=== PATIENT | male | born 1965 | race Caucasian/White ===

== ENCOUNTER → 2018-01-22 | Outpatient (REF) | payer MEDICARE, MEDICAID ==
[2018-01-22 20:57] LABS: BASO % 0.5 % (0.0-1.0); EOS # 0.1 10^3/uL (0.0-0.50); EOS % 1.1 % (0.0-3.0); HEMATOCRIT 42.5 % (42.0-52.0); HEMOGLOBIN 14.7 g/dl (13.5-17.5); IMMATURE GRANULOCYTE % 0.2 % (0-3.0); LYMPH # 1.8 10^3/uL (1.5-4.5); LYMPH % 32.3 % (24.0-44.0); MEAN CORPUSCULAR HEMOGLOBIN 32.5 pg (27.0-33.0); MEAN CORPUSCULAR HGB CONC 34.6 g/dl (32.0-36.5); MONO # 0.4 10^3/uL (0.0-0.8); MONO % 7.8 % (0.0-5.0); NEUTROPHILS # 3.3 10^3/uL (1.8-7.7); NEUTROPHILS % 58.1 % (36.0-66.0); PLATELET COUNT, AUTOMATED 273 10^3/uL (150-450); RED BLOOD COUNT 4.52 10^6/uL (4.30-6.10); RED CELL DISTRIBUTION WIDTH 13.2 % (11.5-14.5); WHITE BLOOD COUNT 5.6 10^3/uL (4.0-10.0)
[2018-01-22 21:01] LABS: ALBUMIN 3.7 GM/DL (3.2-5.2); ALBUMIN/GLOBULIN RATIO 0.82 (1.00-1.93); ALKALINE PHOSPHATASE 59 U/L (45-117); ALT/SGPT 14 U/L (12-78); ANION GAP 5 MEQ/L (8-16); AST/SGOT 18 U/L (7-37); BILIRUBIN,TOTAL 0.5 MG/DL (0.2-1.0); BLOOD UREA NITROGEN 12 MG/DL (7-18); CALCIUM LEVEL 8.6 MG/DL (8.5-10.1); CARBON DIOXIDE LEVEL 29 MEQ/L (21-32); CHLORIDE LEVEL 105 MEQ/L (98-107); CREATININE FOR GFR 1.22 MG/DL (0.70-1.30); GLOMERULAR FILTRATION RATE > 60.0 (>56); GLUCOSE, FASTING 110 MG/DL (70-100); POTASSIUM SERUM 4.2 MEQ/L (3.5-5.1); SODIUM LEVEL 139 MEQ/L (136-145); TOTAL PROTEIN 8.2 GM/DL (6.4-8.2); VALPROIC ACID (DEPAKOTE) 49.7 UG/ML (50.0-100.0)
== END ==
LOC: M LAB REF 18:58
DX: Z79.899 Other long term (current) drug therapy (principal)
CPT/HCPCS: 80164

== ENCOUNTER 2018-02-02 16:53 | Emergency (ER) | payer MEDICARE, MEDICAID ==
[2018-02-02] MEDS: traZODone 100 MG TAB PO (18:12)
== END 2018-02-02 18:50 | disposition home or self-care (01) ==
LOC: M ED 16:53
DX: Z76.0 Encounter for issue of repeat prescription (principal); J06.9 Acute upper respiratory infection, unspecified; Z79.899 Other long term (current) drug therapy; Z87.820 Personal history of traumatic brain injury
CPT/HCPCS: 99282

== ENCOUNTER 2018-11-20 15:47 | Emergency (ER) | payer MEDICARE, MEDICAID ==
[~2018-11-20] VITALS: Ht 188 cm; Wt 109.5 kg
[~2018-11-20 15:47] MED LIST: ADVICAP PO; BUSP10TA PO; DIVA500T94 PO; FLON1SPR; HALO1TAB19 PO; TRAZ-163 PO
[2018-11-20] MEDS ORDERED: DICL75TA (15:54)
[2018-11-20] MEDS ORDERED: LORA-243 (15:54)
[2018-11-20] MEDS ORDERED: PROAAER10 INH (17:26)
[2018-11-20] MEDS ORDERED: SPIR1CAP INH (17:26)
[2018-11-20] MEDS ORDERED: PSEU1TAB3 PO (17:26)
[2018-11-20 17:37] VITALS: BP 118/61
== END 2018-11-20 17:38 | disposition home or self-care (01) ==
LOC: M ED 15:47
DX: J32.9 Chronic sinusitis, unspecified (principal); L72.9 Follicular cyst of the skin and subcutaneous tissue, unspecified; F17.210 Nicotine dependence, cigarettes, uncomplicated

== ENCOUNTER → 2019-01-19 | Outpatient (CLI) | payer MEDICARE, MEDICAID ==
[~2019-01-19] MED LIST changes: +DICL75TA; +LORA-243; +PROAAER10 INH; +PSEU1TAB3 PO; +SPIR1CAP INH
--- NOTE | 2019-01-19 09:48 | REP ---
Chest two views HISTORY: Cough Comparison: None The lungs are clear. The heart is normal in size. The pulmonary vasculature is normal in appearance. The bony structure is intact. IMPRESSION: No acute disease. Electronically Signed by Rodrigo Nuñez MD 01/19/2019 09:40 A
== END ==
LOC: M RAD 09:09
PROVIDERS: ATTEND Family Medicine Addiction Medicine
DX: R05 Cough (principal)

== ENCOUNTER → 2019-03-28 | Outpatient (REF) | payer MEDICARE, MEDICAID ==
[2019-03-30 09:45] LABS: ALBUMIN 3.8 GM/DL (3.2-5.2); ALT/SGPT 24 U/L (12-78); BILIRUBIN,TOTAL 0.5 MG/DL (0.2-1.0); BLOOD UREA NITROGEN 11 MG/DL (7-18); CALCIUM LEVEL 8.5 MG/DL (8.5-10.1); CARBON DIOXIDE LEVEL 28 MEQ/L (21-32); CHLORIDE LEVEL 103 MEQ/L (98-107); CHOLESTEROL LEVEL 156 MG/DL (<200); CHOLESTEROL RISK RATIO 4.588 (<5); CREATININE FOR GFR 1.24 MG/DL (0.70-1.30); FREE T4 1.38 NG/DL (0.76-1.46); GLOMERULAR FILTRATION RATE > 60.0 (>56); GLUCOSE, FASTING 82 MG/DL (70-100); HDL CHOLESTEROL 34 MG/DL (>40); LDL CHOLESTEROL 104 MG/DL (<100); NON-HDL-C 122 MG/DL; POTASSIUM SERUM 4.2 MEQ/L (3.5-5.1); SODIUM LEVEL 136 MEQ/L (136-145); TOTAL PROTEIN 7.5 GM/DL (6.4-8.2); TRIGLYCERIDES LEVEL 90 MG/DL (<150)
[2019-03-30 10:35] LABS: HEMOGLOBIN A1c 4.9 %
[2019-03-31 10:35] LABS: TOTAL 25(OH) VITAMIN D 22.9 NG/ML (30.0-100.0)
[2019-04-02 00:06] LABS: Lyme Disease IgG/IgM Antibodie <0.91 ISR (0.00-0.90); Lyme Disease IgM Ab Quantitati <0.80 index (0.00-0.79)
== END ==
LOC: M LAB REF 09:04 → M LAB 03-30 09:04
PROVIDERS: ATTEND Family Medicine
DX: Z12.5 Encounter for screening for malignant neoplasm of prostate (principal); Z13.228 Encounter for screening for other metabolic disorders; Z79.51 Long term (current) use of inhaled steroids; Z79.899 Other long term (current) drug therapy
CPT/HCPCS: 80053; 80061; 82306; 83036; 84439; 84443; 86617; G0103

== ENCOUNTER 2019-04-01 00:09 | Emergency (ER) | payer MEDICARE, MEDICAID ==
[2019-04-01 00:10] VITALS: BP 114/66
== END 2019-04-01 05:55 | disposition left against medical advice (07) ==
LOC: M ED 00:09
DX: Z53.29 Procedure and treatment not carried out because of patient's decision for other reasons (principal)

== ENCOUNTER → 2019-04-01 | Outpatient (REF) | payer MEDICARE, MEDICAID ==
[2019-04-01 19:20] LABS: BASO % 0.6 % (0.0-1.0); EOS # 0.1 10^3/uL (0.0-0.50); EOS % 1.9 % (0.0-3.0); HEMATOCRIT 40.5 % (42.0-52.0); HEMOGLOBIN 13.8 g/dl (13.5-17.5); LYMPH # 2.1 10^3/uL (1.5-4.5); LYMPH % 43.5 % (24.0-44.0); MEAN CORPUSCULAR HEMOGLOBIN 32.2 pg (27.0-33.0); MEAN CORPUSCULAR HGB CONC 34.1 g/dl (32.0-36.5); MEAN CORPUSCULAR VOLUME 94.4 fl (80.0-96.0); MONO # 0.5 10^3/uL (0.0-0.8); MONO % 9.5 % (0.0-5.0); NEUTROPHILS # 2.1 10^3/uL (1.8-7.7); NEUTROPHILS % 44.3 % (36.0-66.0); PLATELET COUNT, AUTOMATED 211 10^3/uL (150-450); RED BLOOD COUNT 4.29 10^6/uL (4.30-6.10); WHITE BLOOD COUNT 4.8 10^3/uL (4.0-10.0)
== END ==
LOC: M LAB REF 17:04
PROVIDERS: ATTEND Family Medicine
DX: Z12.5 Encounter for screening for malignant neoplasm of prostate (principal); Z13.228 Encounter for screening for other metabolic disorders; Z79.51 Long term (current) use of inhaled steroids; Z79.899 Other long term (current) drug therapy

== ENCOUNTER → 2019-08-20 | Outpatient (REF) | payer MEDICARE, MEDICAID ==
[2019-08-20 17:36] LABS: BASO % 0.3 % (0.0-1.0); EOS % 0.4 % (0.0-3.0); HEMATOCRIT 41.9 % (42.0-52.0); HEMOGLOBIN 13.8 g/dl (13.5-17.5); LYMPH # 1.5 10^3/uL (1.5-5.0); MEAN CORPUSCULAR HGB CONC 32.9 g/dl (32.0-36.5); MEAN CORPUSCULAR VOLUME 100.2 fl (80.0-96.0); MONO # 0.5 10^3/uL (0.0-0.8); MONO % 7.9 % (0.0-5.0); NEUTROPHILS # 4.6 10^3/uL (1.5-8.5); NEUTROPHILS % 69.1 % (36.0-66.0); PLATELET COUNT, AUTOMATED 214 10^3/uL (150-450); RED BLOOD COUNT 4.18 10^6/uL (4.30-6.10); WHITE BLOOD COUNT 6.7 10^3/uL (4.0-10.0)
[2019-08-20 17:41] LABS: PERCENT SATURATION 21.1 % (19.7-50.0)
== END ==
LOC: M LAB REF 16:23
PROVIDERS: ATTEND Family Medicine
DX: D64.9 Anemia, unspecified (principal)

== ENCOUNTER 2019-10-24 09:25 | Emergency (ER) | payer MEDICARE, MEDICAID ==
[~2019-10-24] VITALS: Ht 190.5 cm; Wt 108.4 kg
[~2019-10-24 09:25] MED LIST changes: -TRAZ-163 PO; +TRAZ-257 PO
[2019-10-24] MEDS ORDERED: BEVE1AER (09:41)
[2019-10-24] MEDS ORDERED: HALO5TA (09:41)
[2019-10-24] MEDS ORDERED: TRAZ1TAB14 (09:41)
[2019-10-24] MEDS ORDERED: BUSP10TA (09:41)
[2019-10-24] MEDS ORDERED: HYDR-4571 (09:41)
--- NOTE | 2019-10-24 11:32 | REP ---
LUMBOSACRAL SPINE: Five views of the lumbosacral spine are performed. There is no compression fracture or malalignment. There is normal lumbar lordosis with no spondylolysis or spondylolisthesis. There is mild diffuse spurring with a more moderate degree of spurring of L5. There is mild disc space narrowing and subchondral sclerosis at all levels with a more moderate degree of disc space narrowing at L4-5. There is Sclerosis and spurring at the posterior facet joints, particularly L4-5, L5-S1. IMPRESSION: Diffuse degenerative changes without fracture or dislocation. Electronically Signed by Moris Aguilar MD 10/24/2019 12:57 P
--- NOTE | 2019-10-24 11:39 | REP ---
PELVIS AND LEFT HIP: AP view of the left pelvis and AP and frog-leg views of the left hip are performed. There is no acute fracture or dislocation. There are mild degenerative change at both hip joints with joint space narrowing, subchondral sclerosis and spurring. There is mild narrowing and sclerosis of the sacroiliac joints bilaterally. IMPRESSION: Mild degenerative changes without fracture or dislocation. Electronically Signed by Moris Aguilar MD 10/24/2019 12:57 P
[2019-10-24] MEDS ORDERED: NORC1TAB7 PO (12:05)
[2019-10-24] MEDS ORDERED: NAPR-837 PO (12:05)
[2019-10-24 12:09] VITALS: BP 128/60
== END 2019-10-24 12:14 | disposition home or self-care (01) ==
LOC: M ED 09:25
DX: Z76.0 Encounter for issue of repeat prescription (principal); M16.12 Unilateral primary osteoarthritis, left hip; M51.36 Other intervertebral disc degeneration, lumbar region; M25.78 Osteophyte, vertebrae; M48.061 Spinal stenosis, lumbar region without neurogenic claudication; G89.29 Other chronic pain; M54.9 Dorsalgia, unspecified; F17.200 Nicotine dependence, unspecified, uncomplicated; Z79.899 Other long term (current) drug therapy

== ENCOUNTER 2020-02-15 20:37 | Emergency (ER) | payer MEDICARE, MEDICAID ==
[~2020-02-15] VITALS: Ht 190.5 cm; Wt 98.6 kg
[~2020-02-15 20:37] MED LIST changes: +BEVE1AER; +BUSP10TA; +HALO5TA; +HYDR-4571; +NAPR-837 PO; +NORC1TAB7 PO; +TRAZ1TAB14
[2020-02-15] MEDS ORDERED: ACETAMINOPHEN 500 MG TAB PO ONE (21:30)
[2020-02-15 22:17] VITALS: BP 120/72
== END 2020-02-15 22:18 | disposition home or self-care (01) ==
LOC: M ED 20:37
DX: M25.552 Pain in left hip (principal); G89.29 Other chronic pain; J44.9 Chronic obstructive pulmonary disease, unspecified; F17.210 Nicotine dependence, cigarettes, uncomplicated; F32.9 Major depressive disorder, single episode, unspecified; Z87.820 Personal history of traumatic brain injury; Z79.899 Other long term (current) drug therapy

== ENCOUNTER → 2020-02-20 | Outpatient (REF) | payer MEDICARE, MEDICAID ==
[2020-02-20 16:38] LABS: BASO % 0.8 % (0.0-1.0); EOS % 1.1 % (0.0-3.0); HEMATOCRIT 40.6 % (42.0-52.0); HEMOGLOBIN 13.6 g/dl (13.5-17.5); LYMPH # 1.2 10^3/uL (1.5-5.0); LYMPH % 30.8 % (24.0-44.0); MEAN CORPUSCULAR HEMOGLOBIN 31.8 pg (27.0-33.0); MEAN CORPUSCULAR HGB CONC 33.5 g/dl (32.0-36.5); MEAN CORPUSCULAR VOLUME 94.9 fl (80.0-96.0); MONO # 0.3 10^3/uL (0.0-0.8); NEUTROPHILS # 2.2 10^3/uL (1.5-8.5); NEUTROPHILS % 59.3 % (36.0-66.0); PLATELET COUNT, AUTOMATED 195 10^3/uL (150-450); RED BLOOD COUNT 4.28 10^6/uL (4.30-6.10); WHITE BLOOD COUNT 3.8 10^3/uL (4.0-10.0)
[2020-02-20 17:21] LABS: HEMOGLOBIN A1c 5.1 %
[2020-02-20 17:39] LABS: ALBUMIN 3.5 GM/DL (3.2-5.2); BILIRUBIN,TOTAL 0.4 MG/DL (0.2-1.0); CALCIUM LEVEL 8.9 MG/DL (8.5-10.1); CREATININE FOR GFR 1.37 MG/DL (0.70-1.30); GLOMERULAR FILTRATION RATE 57.4 (>56); POTASSIUM SERUM 4.6 MEQ/L (3.5-5.1); THYROID STIMULATING HORMONE 0.8 uIU/ML (0.358-3.740); TOTAL PROTEIN 7.6 GM/DL (6.4-8.2)
[2020-02-20 17:40] LABS: TOTAL 25(OH) VITAMIN D 25.3 NG/ML (30.0-100.0)
== END ==
LOC: M LAB REF 16:19
PROVIDERS: ATTEND Family Medicine
DX: Z13.228 Encounter for screening for other metabolic disorders (principal)

== ENCOUNTER 2020-03-13 | Emergency (ER) | payer MEDICARE, MEDICAID ==
[2020-03-13] MEDS ORDERED: NAPR-837 PO (03:23)
[2020-03-13] MEDS ORDERED: KEFL500C17 PO (03:23)
[2020-03-13] MEDS ORDERED: KETOROLAC 30 MG/ML 1ML VIAL IV ONE (03:30)
[2020-03-13] MEDS ORDERED: CEPHALEXIN 500 MG CAP PO ONE (03:30)
[2020-03-13 03:45] VITALS: BP 148/91
== END 2020-03-13 03:50 | disposition home or self-care (01) ==
LOC: M ED
DX: L03.115 Cellulitis of right lower limb (principal); Z87.820 Personal history of traumatic brain injury; F17.200 Nicotine dependence, unspecified, uncomplicated; Z79.899 Other long term (current) drug therapy
CPT/HCPCS: 96374; 99284; J1885

== ENCOUNTER → 2020-11-09 | Outpatient (REF) | payer MEDICARE, MEDICAID ==
[~2020-11-09] MED LIST changes: +KEFL500C17 PO
[2020-11-09 17:03] LABS: BASO % 0.6 % (0.0-1.0); EOS % 0.6 % (0.0-3.0); HEMATOCRIT 40.5 % (42.0-52.0); HEMOGLOBIN 13.2 g/dl (13.5-17.5); LYMPH # 1.5 10^3/uL (1.5-5.0); LYMPH % 29.7 % (24.0-44.0); MEAN CORPUSCULAR HEMOGLOBIN 31.1 pg (27.0-33.0); MEAN CORPUSCULAR HGB CONC 32.6 g/dl (32.0-36.5); MEAN CORPUSCULAR VOLUME 95.5 fl (80.0-96.0); MONO # 0.5 10^3/uL (0.0-0.8); NEUTROPHILS # 2.8 10^3/uL (1.5-8.5); NEUTROPHILS % 57.7 % (36.0-66.0); PLATELET COUNT, AUTOMATED 251 10^3/uL (150-450); RED BLOOD COUNT 4.24 10^6/uL (4.30-6.10); WHITE BLOOD COUNT 4.9 10^3/uL (4.0-10.0)
[2020-11-09 17:13] LABS: ALBUMIN 3.5 GM/DL (3.2-5.2); ALT/SGPT 12 U/L (12-78); BILIRUBIN,TOTAL 0.4 MG/DL (0.2-1.0); BLOOD UREA NITROGEN 12 MG/DL (7-18); CALCIUM LEVEL 8.9 MG/DL (8.5-10.1); CARBON DIOXIDE LEVEL 33 MEQ/L (21-32); CHLORIDE LEVEL 96 MEQ/L (98-107); CHOLESTEROL LEVEL 155 MG/DL (<200); CHOLESTEROL RISK RATIO 3.039 (<5); CREATININE FOR GFR 1.09 MG/DL (0.70-1.30); GLOMERULAR FILTRATION RATE > 60.0 (>56); GLUCOSE, FASTING 84 MG/DL (70-100); HDL CHOLESTEROL 51 MG/DL (>40); LDL CHOLESTEROL 93 MG/DL (<100); NON-HDL-C 104 MG/DL; SODIUM LEVEL 132 MEQ/L (136-145); TOTAL PROTEIN 7.5 GM/DL (6.4-8.2); TRIGLYCERIDES LEVEL 56 MG/DL (<150)
== END ==
LOC: M LAB REF 16:20
PROVIDERS: ATTEND Family Medicine Addiction Medicine
DX: Z13.228 Encounter for screening for other metabolic disorders (principal); D64.9 Anemia, unspecified

== ENCOUNTER 2021-04-19 09:51 | Emergency (ER) | payer MEDICARE, MEDICAID ==
[~2021-04-19] VITALS: Ht 188 cm; Wt 97.2 kg
[2021-04-19 09:52] VITALS: BP 161/92
[2021-04-19] MEDS ORDERED: CELE1CAP9 PO (10:02)
[2021-04-19] MEDS ORDERED: ACETAMINOPHEN 500 MG TAB PO ONE (12:00)
--- NOTE | 2021-04-19 12:28 | REP ---
INDICATION: fell. COMPARISON: None. TECHNIQUE: Helical scanning is acquired. 5 mm axial images were reformatted. Coronal MPR images were generated. FINDINGS: Bone window settings demonstrate an intact bony calvarium. There is no evidence of skull fracture or incidental bony calvarial lesion. The visualized paranasal sinuses appear clear. No intraorbital abnormality is seen. On soft tissue window setting images; the lateral, third, and fourth ventricles are normal in size and position. Aguilar-white differentiation pattern is normal above and below the tentorium. There are is no evidence of intracranial hemorrhage. No mass, edema, infarction, or midline shift is seen. No extra-axial fluid collection is appreciated. There is minimal generalized volume loss. Mild vascular calcification is seen in the distal internal carotid arteries. IMPRESSION: No acute intracranial abnormality.. <Electronically signed by Jak Dexter > 04/19/21 [id number]
--- NOTE | 2021-04-19 12:29 | REP ---
INDICATION: fell. COMPARISON: None. TECHNIQUE: Helical scanning is acquired and 4 mm axial images re-formatted. Coronal and sagittal MPR images are provided. FINDINGS: Lumbar vertebral body heights are preserved. There is normal alignment on sagittal MPR images. Degenerative disc disease with vacuum phenomena and disc space narrowing is seen at each level from L2-3 to L5-S1. There is discogenic spurring posteriorly at L4-5 and L3-4 associated with diffuse disc bulging. Anterior spurring is seen at these levels as well. No fracture or collapse is seen. No upper sacral fracture is appreciated. No transverse process fracture is seen. No perispinal hematoma appreciated. IMPRESSION: Degenerative spondylosis changes. No traumatic abnormality seen. <Electronically signed by Jak Dexter > 04/19/21 [id number]
--- NOTE | 2021-04-19 12:40 | REP ---
INDICATION: fell. COMPARISON: 10/24/2019 TECHNIQUE: AP pelvis with 2 images left hip. FINDINGS: AP pelvis: The sacral ala and foramina intact SI joints unremarkable. There are lower lumbar degenerative disc and facet changes at L4-5 and L5-S1, stable. Pelvic ring intact iliac wings unremarkable there is no evidence of fracture of the bony pelvis. There are some degenerative changes of both hips with marginal osteophytes acetabular roof. Left hip: Mild sclerosis acetabular roof a tiny rim osteophyte acetabular roof and femoral no evidence for AVN or fracture in the femoral head, neck, intertrochanteric and subtrochanteric femur. The pubic rami, symphysis pubis, visible acetabulum the left SI joint without fracture or focal lesion. IMPRESSION: 1. Some degenerative changes lower lumbar spine and facets without fracture or destructive lesion. There are minor degenerative changes of both hips without AVN or fracture of the hips. No acute bony pelvic finding. <Electronically signed by Rasta Hendrickson > 04/19/21 0732
== END 2021-04-19 13:00 | disposition home or self-care (01) ==
LOC: M ED 09:51
DX: S09.90XA Unspecified injury of head, initial encounter (principal); M54.5 Low back pain; M25.552 Pain in left hip; W01.198A Fall on same level from slipping, tripping and stumbling with subsequent striking against other object, initial encounter; Y92.099 Unspecified place in other non-institutional residence as the place of occurrence of the external cause; Y93.9 Activity, unspecified; Y99.9 Unspecified external cause status; J45.909 Unspecified asthma, uncomplicated; J44.9 Chronic obstructive pulmonary disease, unspecified; F41.9 Anxiety disorder, unspecified; F32.9 Major depressive disorder, single episode, unspecified; F17.200 Nicotine dependence, unspecified, uncomplicated; F12.10 Cannabis abuse, uncomplicated; M43.06 Spondylolysis, lumbar region; Z79.899 Other long term (current) drug therapy

== ENCOUNTER 2021-07-22 16:15 | Emergency (ER) | payer MEDICARE, MEDICAID ==
[~2021-07-22] VITALS: Ht 190.5 cm; Wt 97.2 kg
[~2021-07-22 16:15] MED LIST changes: +CELE1CAP9 PO
--- OUTSIDE RECORDS SUMMARY | 2021-07-22 16:24 | CCD | Continuity of Care Document ---
Author Author Wolfgang CARBAJAL P.A.-C. Organization Unknown Address [address] [place] [address] Phone [phone] Care Team Providers Care Bead Maker Name Role Phone Anibal Hernandez AUTM Long Stacy M.D. AUTM [phone] Problems Description No Information Available Social History Type Date Description Comments Sex Unknown Tobacco Use Start: Unknown He smokes 1-2 packs a day. He has been alcohol free for 5 years. Allergies, Adverse Reactions, Alerts Description No Known Drug Allergies Medications Active Medications SIG Qnty Indications Ordering Provide r Date Tylenol Extra Strength 500mg Table ts 2 po bid prn 120tabs G43 Nicolette Bolivar M.D. 06/20/2021 Ra Lidocaine Pain Relieving Patches Maxi mum Strength 4% Patches 1 patch to the left hip 12 hours on and 12 hours off 30units G43. Nicolette Bolivar M.D. 06/20/2021 Aimovig 140mg/ml Solution Auto-Inj ect inject subcutaneously once monthly, new dose 1ml G43. Virgie Bolivar M.D. 12/22/2020 Medrol 4mg TBPK take d osepak as directed 1pack Nicolette Bolivar M.D. 10/01/[address] Take One Tablet By Mouth @8Am and Take One Tablet @8PM 60tabs R51 Nicolette Bolivar M.D. 12/05/2019 Buspirone HCL 10mg Tablets Long Stacy M.D. Celecoxib 200mg Capsules Long Stacy M.D. Haloperidol 5mg Tablets Hans Gardner M.D. Trazodone HCL 150mg Tablets Long Stacy M.D. Ventolin HFA 108(90Base) mcg/Act A erosol Long Stacy M.D. Immunizations Description No Information Available Vital Signs Date Vital Result Comment 06/20/2021 5:28am BP Systolic 118 mmHg BP Diastolic 80 mmHg Heart Rate 80 /min Respiratory Rate 16 /min 03/22/2021 5:46am BP Systolic 124 mmHg BP Diastolic 80 mmHg Heart Rate 80 /min Respiratory Rate 16 /min Results Description No Information Available Procedures Date Code Description Status 06/20/2021 65122 Office/Outpatient Established Mo d MDM 30-39 Min Completed 03/22/2021 24040 Office/Outpatient Established Mo d MDM 30-39 Min Completed 12/22/2020 44277 Phone Evaluation/Management Phys ician 11-20 Mins Completed Medical Devices Description No Information Available Encounters Type Date Location Provider Dx Diagnosis Office Visit 06/20/2021 2:30p Main office - [place] Robinson Yo.A.-C. S09.0xxD Injury of blood vessels of head, NEC, liu bs G43.719 Chronic migraine w/o aura, i ntractable, w/o stat migr G44.41 Drug-induced headache, not e lsewhere classified, intractable M25.552 Pain in left hip Office Visit 03/22/2021 2:30p Main office - [place] Liyah fisher P.A.-C. G43.719 Chronic migraine w/o aura, intractable, w/o stat migr G44.41 Drug-induced headache, not e lsewhere classified, intractable S09.0xxD Injury of blood vessels of h ead, NEC, subs Office Visit 12/22/2020 1:45p Main office - [place] Liyah fisher P.A.-C. S09.0xxD Injury of blood vessels of head, NEC, liu bs G43.719 Chronic migraine w/o aura, i ntractable, w/o stat migr G44.41 Drug-induced headache, not e lsewhere classified, intractable Assessments Date Code Description Provider 06/20/2021 S09.0xxD Injury of blood vess els of head, not elsewhere classified, subsequent encounter Carmine ReedAGorge-C. 06/20/2021 G43.719 Chronic migraine wit hout aura, intractable, without status migrainosus Robinson Reed.A.-C. 06/20/2021 G44.41 Drug-induced headache, not elsew here classified, intractable Robinson Reed.A.-C. 06/20/2021 M25.552 Pain in left hip Liyah Carbajal P.A.-C. 03/22/2021 G43.719 Chronic migraine wit hout aura, intractable, without status migrainosus Liyah Carbajal P.A.-C. 03/22/2021 G44.41 Drug-induced headache, not elsew here classified, intractable Robinson Reed.A.-C. 03/22/2021 S09.0xxD Injury of blood vess els of head, not elsewhere classified, subsequent encounter Robinson Reed.A.-C. 12/22/2020 S09.0xxD Injury of blood vess els of head, not elsewhere classified, subsequent encounter Robinson Reed.A.-C. 12/22/2020 G43.719 Chronic migraine wit hout aura, intractable, without status migrainosus Robinson Reed.A.-C. 12/22/2020 G44.41 Drug-induced headache, not elsew here classified, intractable Robinson Reed.A.-C. Plan of Treatment Future Appointment(s):* 09/20/2021 1:45 pm - Liyah Carbajal P.A.-C. at [facility], [place] 06/20/2021 - Esau ReedC.* S09.0xxD Injury of blood vessels of head, not elsewhere classified, subsequent encounter* Comments:* Not recurrent. * G43.719 Chronic migraine without aura, intractable, without status migrainosus * New Medication:* Tylenol Extra Strength 500 mg - 2 po bid prn * Ra Lidocaine Pain Relieving Patches Maximum Strength 4 % - 1 patch to the left hip 12 hours on and 12 hours off * Comments:* Continue Aimovig and Depakote with Tylenol as needed. * G44.41 Drug-induced headache, not elsewhere classified, intractable* Comments: * Improved. * M25.552 Pain in left hip* Comments:* Prescriptions for Tylenol and Lidocaine patches sent eRx. * Follow up:* 3 months Functional Status Description No Information Available Mental Status Description No Information Available Referrals Description No Information Available
--- OUTSIDE RECORDS SUMMARY | 2021-07-22 16:25 | CCD | Continuity of Care Document ---
Author Author Wolfgang CARBAJAL P.A.-C. Organization Unknown Address [address] [place] [address] Phone [phone] Care Team Providers Care Internal Affairs Investigator Name Role Phone Anibal Hernandez AUTM Long Stacy M.D. AUTM [phone] Problems Description No Information Available Social History Type Date Description Comments Sex Unknown Tobacco Use Start: Unknown He smokes 1-2 packs a day. He has been alcohol free for 5 years. Allergies, Adverse Reactions, Alerts Description No Known Drug Allergies Medications Active Medications SIG Qnty Indications Ordering Provide r Date Tylenol Extra Strength 500mg Table ts 2 po bid prn 120tabs G43. Nicolette Bolivar M.D. 06/20/2021 Ra Lidocaine Pain [...] M.D. 12/05/2019 Buspirone HCL 10mg Tablets Long tSacy M.D. Celecoxib 200mg Capsules Long Stacy M.D. Haloperidol 5mg Tablets Hans Gardner M.D. Trazodone HCL 150mg Tablets Long Stacy M.D. Ventolin HFA 108(90Base) mcg/Act A erosol Long Stacy M.D. Immunizations Description No Information Available Vital Signs Date Vital Result Comment 03/22/2021 5:46am BP Systolic 124 mmHg BP Diastolic 80 mmHg Heart Rate 80 /min Respiratory Rate 16 /min 05/27/2020 6:03am BP Systolic 110 mmHg BP Diastolic 80 mmHg Heart Rate 76 /min Respiratory Rate 16 /min Results Description No Information Available Procedures Date Code Description Status 03/22/2021 44818 Office/Outpatient Established Mo d MDM 30-39 Min Completed 12/22/2020 67040 Phone Evaluation/Management Phys ician 11-20 Mins Completed Medical Devices Description No Information Available Encounters Type Date Location Provider Dx Diagnosis Office Visit 03/22/2021 2:30p Main office - [facility] Liyah fisher P.A.-C. G43.719 Chronic migraine w/o aura, intractable, w/o stat migr G44.41 Drug-induced headache, not e lsewhere classified, intractable S09.0xxD Injury of blood vessels of h ead, NEC, subs Office Visit 12/22/2020 1:45p Main office - [facility] Liyah fisher P.A.-C. S09.0xxD Injury of blood vessels of head, NEC, liu bs G43.719 Chronic migraine w/o aura, i ntractable, w/o stat migr G44.41 Drug-induced headache, not e lsewhere classified, intractable Assessments Date Code Description Provider 06/20/2021 S09.0xxD Injury of blood vess els of head, not elsewhere classified, subsequent encounter Liyah Carbajal P.A.-C. 06/20/2021 G43.719 Chronic migraine wit hout aura, intractable, without status migrainosus Liyah Carbajal P.A.-C. 06/20/2021 G44.41 Drug-induced headache, not elsew here classified, intractable Liyah Carbajal P.A.-C. 06/20/2021 M25.552 Pain in left hip Easu ReedC. 03/22/2021 G43.719 Chronic migraine wit hout aura, intractable, without status migrainosus Carmine ReedAGorge-C. 03/22/2021 G44.41 Drug-induced headache, not elsew here classified, intractable Esau ReedC. 03/22/2021 S09.0xxD Injury of blood vess els of head, not elsewhere classified, subsequent encounter Lita Reed-C. 12/22/2020 S09.0xxD Injury of blood vess els of head, not elsewhere classified, subsequent encounter Lita Reed-C. 12/22/2020 G43.719 Chronic migraine wit hout aura, intractable, without status migrainosus Lita Reed-CGorge 12/22/2020 G44.41 Drug-induced headache, not elsew here classified, intractable Lita Reed-Keerthi. Plan of Treatment 06/20/2021 - Liyah Carbajal P.A.-C.* S09.0xxD Injury of blood vessels of head, not elsewhere classified, subsequent encounter * G43.719 Chronic migraine without aura, intractable, without status migrainosus * New Medication:* Tylenol Extra Strength 500 mg - 2 po bid prn * Ra Lidocaine Pain Relieving Patches Maximum Strength 4 % - 1 patch to the left hip 12 hours on and 12 hours off * G44.41 Drug-induced headache, not elsewhere classified, intractable * M25.552 Pain in left hip Functional Status Description No Information Available Mental Status Description No Information Available Referrals Description No Information Available
--- OUTSIDE RECORDS SUMMARY | 2021-07-22 16:25 | CCD ---
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 Name Role Phone StacyLong Unavailable Unavailable Allergies Code Code System Name Reaction Severity Status Onset NKDA Medications Name Status Start Date Stop Date Aimovig Autoinjector 140 mg/mL subcutane ous auto-injector INJECT ONE SYRINGE SUBCUTANEOUSLY Once A Month Active Not available Aimovig Autoinjector 70 mg/mL subcutaneous auto-injector Active Not available albuterol sulfate HFA 90 mcg/actuation a erosol inhaler INHALE TWO PUFFS BY MOUTH EVERY 4 HOURS NEEDED Active Not available Bevespi Aerosphere 9 mcg-4.8 mcg HFA aerosol inhaler Active Not available buspirone 10 mg tablet TAKE ONE TABLET BY MOUTH @8AM and TAKE ONE TABLET BY MOUTH @8PM Active Not available cefdinir 300 mg capsule Completed 08/16/20 20 celecoxib 200 mg capsule TAKE ONE TABLET BY MOUTH @8AM Active Not avail able cephalexin 500 mg capsule Active Not av ailable cetirizine 10 mg tablet TAKE ONE TABLET BY MOUTH ONCE DAILY Active Not available cyclobenzaprine 10 mg tablet Active Not available diclofenac sodium 75 mg tablet,delayed r elease TAKE ONE TABLET BY MOUTH @12PM and TAKE ONE TABLET BY MOUTH @8PM Active Not available divalproex 500 mg tablet,delayed release TAKE ONE TABLET BY MOUTH @8AM and TAKE ONE TABLET BY MOUTH @8PM Active Not available gabapentin 300 mg capsule Active Not av ailable haloperidol 5 mg tablet TAKE ONE TABLET BY MOUTH @8AM Active Not avail able hydrocodone 5 mg-acetaminophen 325 mg tablet Active Not available ibuprofen 800 mg tablet Active Not avai lable ketoconazole 2 % topical cream Active N ot available ketorolac 0.5 % eye drops INSTILL ONE DROP IN THE RIGHT EYE FOUR TIMES DAILY BEGIN THREE DAYS PRIOR TO SURGERY Active Not available methylprednisolone 4 mg tablets in a dos e pack TAKE DIRECTED PER DOSEPACK Active Not avail able naproxen 500 mg tablet Active Not avail able polymyxin B sulfate 10,000 unit-trimetho prim 1 mg/mL eye drops INSTILL ONE DROP IN THE RIGHT EYE FOUR TIMES DAILY BEGIN THREE DAYS PRIOR TO SURGERY Active Not available prednisolone acetate 1 % eye drops,suspe nsion INSTILL ONE DROP IN THE RIGHT EYE FOUR TIMES DAILY TO BE STARTED AFTER SURGERY Active Not available prednisone 10 mg tablet Active Not avai lable trazodone 100 mg tablet 1 by mouth at bedtime every night. Active Not available trazodone 150 mg tablet TAKE ONE TABLET BY MOUTH @8PM Active Not avail able Problems Name Status Onset Date Source Mixed Anxiety and Depressive Disorder Active 10/19/2016 History Emotional State Finding Active 10/19/2016 History Functional Urinary Incontinence Active 01/18/2017 History Procedure by Method Active 01/18/2017 History Complete Tear, Iliolumbar Ligament Active 04/19/2017 History Dental Caries on Smooth Surface Penetrating into Pulp Active 12/13/2017 History Current Drug User Active 01/22/2018 History Psychophysiologic Insomnia Active 04/25/2018 Histo ry Finding of Head and Neck Region Active 07/19/2018 History Headache Disorder Active 08/28/2018 History Cough Active 01/10/2019 History Chronic Obstructive Lung Disease Active 03/28/2019 History Screening for Malignant Neoplasm of Prostate Active 01/2019 History Endocrine/metabolic Screening Active 03/28/2019 Hi story Anemia Active 04/29/2019 History Nicotine Dependence Active 04/29/2019 History Screening Procedure Active 04/29/2019 History Acute Bronchitis Unknown 07/21/2019 History Bursitis Active 08/29/2019 History Pain of Left Hip Joint Active 08/29/2019 History Low Back Pain Active 11/25/2019 History Spasm Active 11/25/2019 History Influenza Vaccine Needed Active 11/25/2019 History Cataract Active 02/01/2021 Procedures Notes: No known surgical history Results Lab Results Date Name Specimen Result Interpretation Description Value Range Status Address 02/08/2021 SARS CoV 2 RdRp Gene, QL Probe, Respiratory Spec imen Nasopharyngeal Normal Sars-cov-2 negative negative Final [facility]: [address] [facility] 11/09/2020 CBC W/ Auto Diff Blood venous Normal White Blood C ount 4.9 10 4.0-10.0 10 [facility]: [address] [facility] Blood venous Low Red Blood Count 4.24 10 4.30- 6.10 10 [facility]: [address] [place] [address] Blood venous Low Hemoglobin 13.2 g/dL 13.5-17. 5 g/dL [facility]: [address] [place] [address] Blood venous Low Hematocrit 40.5 % 42.0-52.0 % [facility]: [address] [place] [address] Blood venous Normal Mean Corpuscular Volume 95.5 fL 80.0-96.0 fL [facility]: [address] [place] [address] Blood venous Normal Mean Corpuscular Hemoglob in 31.1 pg 27.0-33.0 pg [facility]: [address] [place] [address] Blood venous Normal Mean Corpuscular HGB Conc 32.6 g/dL 32.0-36.5 g/dL [facility]: [address] [place] [address] Blood venous Normal Red Cell Distribution Wid th 12.8 % 11.5-14.5 % [facility]: [address] [place] [address] Blood venous Normal Platelet Count, Automated 251 10 150-450 10 [facility]: [address] [place] [address] Blood venous Normal Neutrophils % 57.7 % 36.0-66. 0 % [facility]: [address] [place] [address] Blood venous Normal Lymph % 29.7 % 24.0-44.0 % Fi [facility]: [address] [place] [address] [facility] % 11.0 % 2.0-8.0 % [facility]: [address] [place] [address] Blood venous Normal Eos % 0.6 % 0.0-3.0 % [facility]: [address] [place] [address] Blood venous Normal Baso % 0.6 % 0.0-1.0 % [facility]: [address] [place] [address] Blood venous Normal Immature Granulocyte % 0.4 % 0-3.0 % [facility]: [address] [place] [address] Blood venous Normal Nucleated Red Blood Cell % 0. 0 % 0-0 % [facility]: [address] [place] [address] Blood venous Normal Neutrophils # 2.8 10 1.5-8.5 10 [facility]: [address] [place] [address] Blood venous Normal Lymph # 1.5 10 1.5-5.0 10 [facility]: [address] [facility] Blood venous Normal [facility] # 0.5 10 0.0-0.8 10 [facility]: [address] [place] [address] Blood venous Normal Eos # 0.0 10 0.0-0.5 10 [facility]: [address] [place] [address] Blood venous Normal Baso # 0.0 10 0.0-0.2 10 [facility]: [address] [place] [address] 11/09/2020 CMP, Serum or Plasma Blood venous Normal Glu cose, Fasting 84 mg/dL 70-100 mg/dL [facility] nter: [address] [place] [address] Blood venous Normal Blood Urea Nitrogen 12 mg/dL 7-18 mg/dL [facility]: [address] [place] [address] Blood venous Normal Creatinine for GFR 1.09 mg/dL 0.70-1.30 mg/dL [facility]: [address] [place] [address] Blood venous Normal Glomerular Filtration Rate > 60.0 >56 [facility]: [address] [place] [address] Blood venous Low Sodium Level 132 mEq/L 136-14 5 mEq/L [facility]: [address] [place] [address] Blood venous Normal Potassium Serum 5.0 mEq/L 3.5 -5.1 mEq/L [facility]: [address] [place] [address] Blood venous Low Chloride Level 96 mEq/L 98-10 7 mEq/L [facility]: [address] [place] [address] Blood venous High Carbon Dioxide Level 33 mEq/L 21-32 mEq/L [facility]: [address] [place] [address] Blood venous Low Anion Gap 3 mEq/L 8-16 mEq/L [facility]: [address] [place] [address] Blood venous Normal Calcium Level 8.9 mg/dL 8.5-1 0.1 mg/dL [facility]: [address] [facility] Blood venous Normal AST/SGOT 13 U/L 7-37 U/L Dee l [facility] [place]: [address] [facility] Blood venous Normal ALT/SGPT 12 U/L 12-78 U/L [facility] al [facility] [place]: [address] [facility] Blood venous Normal Alkaline Phosphatase 50 U/L 4 5-117 U/L [facility]: [address] [facility] Blood venous Normal Bilirubin,total 0.4 mg/dL 0.2 -1.0 mg/dL [facility]: [address] [facility] Blood venous Normal Total Protein 7.5 gm/dL 6.4-8 .2 gm/dL [facility]: [address] [facility] Blood venous Normal Albumin 3.5 gm/dL 3.2-5.2 gm/ dL [facility]: [address] [facility] Blood venous Normal Albumin/globulin Ratio 0.9 [facility]: [address] [facility] 11/09/2020 Lipid Panel, Blood Normal Triglycerides Lev el 56 mg/dL <150 mg/dL [facility]: [address] [facility] Normal Cholesterol Level 155 mg/dL <200 mg/ dL [facility]: [address] [facility] Normal HDL Cholesterol 51 mg/dL >40 mg/dL F inal [facility] [place]: [address] [facility] Normal LDL Cholesterol 93 mg/dL <100 mg/dL [facility]: [address] [facility] Normal Non-hdl-c 104 mg/dL Final [facility]: [address] [facility] Normal Cholesterol Risk Ratio 3.039 <5 [facility]: [address] [facility] 11/09/2020 TSH, Serum or Plasma Blood venous Normal Thyroid Stimulating Hormone 1.040 uIU/mL 0.358-3.740 uIU/mL [facility]: [address] [facility] Past Encounters 05/11/2021 Psychophysiologic Insomnia Long Stacy MD: [address] [place] [phone], Ph. 02/08/2021 Chronic Obstructive Lung Disease; Exposure to SARS-CoV-2; Pain of Left Hip Joint Long Stacy MD: [address] [place] [phone], Ph. 11/09/2020 Endocrine/metabolic Screening; Anemia; Pain of Left Hip Joint Long Stacy MD: [address] [place] [phone], Ph. 08/16/2020 Pruritic Rash Mary Beth Matson PA-C: [address] [place] [phone], Ph. Social History Tobacco Smoking Status Heavy Tobacco Smoker (1.5 PPD) Vaccine List Vaccine Type influenza, injectable, quadrivalent, pre servative free 11/25/20190.5 mL 07/08/20200.5 mL Plan of Care Reminders Provider Appointments None recorded. Lab None recorded. Referral None recorded. Procedures None recorded. Surgeries None recorded. Imaging None recorded. Vitals 05/11/2021 03:00PM ESTABLISHED [id number] Height Weight BMI Blood Pressure 75 in 209 lbs 2 oz 26.1 kg/m2 115/70 mm[Hg] 02/08/2021 02:00PM ESTABLISHED [id number] Height Weight BMI Blood Pressure 75 in 219 lbs 27.4 kg/m2 113/62 mm[Hg] 11/09/2020 01:20PM ESTABLISHED [id number] Height Weight BMI Blood Pressure 75 in 232 lbs 16 oz 29.1 kg/m2 103/65 mm[Hg] 08/16/2020 02:00PM ESTABLISHED [id number] Height Weight BMI Blood Pressure 75 in 214 lbs 8 oz 26.8 kg/m2 115/58 mm[Hg] 07/08/2020 Height Weight BMI Blood Pressure 75 in 222 lbs 2.08 oz 27.86 kg/m2 105/56 mm[H g] 05/07/2020 Height Weight BMI Blood Pressure 75 in 212 lbs 6.08 oz 26.64 kg/m2 108/71 mm[H g] 05/04/2020 Height Weight BMI Blood Pressure 75 in 208 lbs 26.09 kg/m2 123/76 mm[Hg] 03/05/2020 Height Weight BMI Blood Pressure 75 in 220 lbs 4 oz 27.63 kg/m2 103/67 mm[Hg] 02/20/2020 Height Weight BMI Blood Pressure 75 in 218 lbs 3.04 oz 27.37 kg/m2 93/65 mm[Hg ] 11/25/2019 Height Weight BMI Blood Pressure 75 in 237 lbs 29.73 kg/m2 102/65 mm[Hg] 08/29/2019 Height Weight BMI Blood Pressure 75 in 241 lbs 30.23 kg/m2 112/65 mm[Hg] 07/21/2019 Height Weight BMI Blood Pressure 75 in 238 lbs 6.4 oz 29.91 kg/m2 107/66 mm[Hg ] 04/29/2019 Height Weight BMI Blood Pressure 75 in 223 lbs 3.2 oz 28.00 kg/m2 104/61 mm[Hg ] 03/28/2019 Height Weight BMI Blood Pressure 75 in 221 lbs 4 oz 27.75 kg/m2 96/60 mm[Hg] 01/10/2019 Height Weight BMI Blood Pressure 75 in 230 lbs 6.4 oz 28.90 kg/m2 99/65 mm[Hg] 10/15/2018 Height Weight BMI Blood Pressure 75 in 231 lbs 12.8 oz 29.08 kg/m2 113/73 mm[H g]
--- OUTSIDE RECORDS SUMMARY | 2021-07-22 16:26 | CCD ---
Author Author [facility] Organization [facility] Address Unknown Phone Unavailable Care Team Providers Care Processing Technician Name Role Phone David Stacy MD Unavailable Unavailable David Stacy MD Unavailable Unavailable David Stacy MD Unavailable Unavailable David Stacy MD Unavailable Unavailable David Stacy MD Unavailable Unavailable David Stacy MD Unavailable Unavailable David Stacy MD Unavailable Unavailable David Stacy MD Unavailable Unavailable Davdi Stacy MD Unavailable Unavailable David Stacy MD Unavailable Unavailable David Stacy MD Unavailable Unavailable David Stacy MD Unavailable Unavailable David Stacy MD Unavailable Unavailable David Stacy MD Unavailable Unavailable David Stacy MD Unavailable Unavailable David Stacy MD Unavailable Unavailable David Stacy MD Unavailable Unavailable David Stacy MD Unavailable Unavailable David Stacy MD Unavailable Unavailable David Stacy MD Unavailable Unavailable David Stacy MD Unavailable Unavailable David Stacy MD Unavailable Unavailable David Stacy MD Unavailable Unavailable David Stacy MD Unavailable Unavailable David Stacy MD Unavailable Unavailable David Stacy MD Unavailable Unavailable David Stacy MD Unavailable Unavailable David Stacy MD Unavailable Unavailable David Stacy MD Unavailable Unavailable David Stacy MD Unavailable Unavailable David Stacy MD Unavailable Unavailable David Stacy MD Unavailable Unavailable David Stacy MD Unavailable Unavailable David Stacy MD Unavailable Unavailable David Stacy MD Unavailable Unavailable David Stacy MD Unavailable Unavailable David Stacy MD Unavailable Unavailable David Stacy MD Unavailable Unavailable David Stacy MD Unavailable Unavailable David Stacy MD Unavailable Unavailable David Stacy MD Unavailable Unavailable David Stacy MD Unavailable Unavailable David Stacy MD Unavailable Unavailable David Stacy MD Unavailable Unavailable David Stacy MD Unavailable Unavailable David Stacy MD Unavailable Unavailable David Stacy MD Unavailable Unavailable David Stacy MD Unavailable Unavailable David Stacy MD Unavailable Unavailable David Stacy MD Unavailable Unavailable David Stacy MD Unavailable Unavailable David Stacy MD Unavailable Unavailable David Stacy MD Unavailable Unavailable David Stacy MD Unavailable Unavailable David Stacy MD Unavailable Unavailable David Stacy MD Unavailable Unavailable David Stacy MD Unavailable Unavailable David Stacy MD Unavailable Unavailable David Stacy MD Unavailable Unavailable David Stacy MD Unavailable Unavailable David Stacy MD Unavailable Unavailable David Stacy MD Unavailable Unavailable David Stacy MD Unavailable Unavailable David Stacy MD Unavailable Unavailable David Stacy MD Unavailable Unavailable David Stacy MD Unavailable Unavailable David Stacy MD Unavailable Unavailable David Stacy MD Unavailable Unavailable David Stacy MD Unavailable Unavailable David Stacy MD Unavailable Unavailable David Stacy MD Unavailable Unavailable David Stacy MD Unavailable Unavailable David Stacy MD Unavailable Unavailable David Stacy MD Unavailable Unavailable David Stacy MD Unavailable Unavailable David Stacy MD Unavailable Unavailable David Stacy MD Unavailable Unavailable David Stacy MD Unavailable Unavailable David Stacy MD Unavailable Unavailable David Stacy MD Unavailable Unavailable David Stacy MD Unavailable Unavailable David Stacy MD Unavailable Unavailable David Stacy MD Unavailable Unavailable David Stacy MD Unavailable Unavailable David Stacy MD Unavailable Unavailable David Stacy MD Unavailable Unavailable David Stacy MD Unavailable Unavailable David Stacy MD Unavailable Unavailable David Stacy MD Unavailable Unavailable David Stacy MD Unavailable Unavailable David Stacy MD Unavailable Unavailable David Stacy MD Unavailable Unavailable David Stacy MD Unavailable Unavailable Naya Banks STOREPERSON STOREPERSON Unavailable Unavailable Trickey, J Liyah PA Unavailable Unavailable Trickey, J Liyah PA Unavailable Unavailable Trickey, J Liyah PA Unavailable Unavailable Trickey, J Liyah PA Unavailable Unavailable Trickey, J Liyah PA Unavailable Unavailable Trickey, J Liyah PA Unavailable Unavailable Trickey, J Liyah PA Unavailable Unavailable Trickey, J Liyah PA Unavailable Unavailable Trickey, J Liyah PA Unavailable Unavailable Trickey, J Liyah PA Unavailable Unavailable Trickey, J Liyah PA Unavailable Unavailable Trickey, J Liyah PA Unavailable Unavailable Trickey, J Liyah PA Unavailable Unavailable Trickey, J Liyah PA Unavailable Unavailable Trickey, J Liyah PA Unavailable Unavailable Trickey, J Liyah PA Unavailable Unavailable Trickey, J Liyah PA Unavailable Unavailable Trickey, J Liyah PA Unavailable Unavailable Trickey, J Liyah PA Unavailable Unavailable Trickey, J Liyah PA Unavailable Unavailable Trickey, J Liyah PA Unavailable Unavailable Trickey, J Liyah PA Unavailable Unavailable Trickey, J Liyah PA Unavailable Unavailable Trickey, J Liyah PA Unavailable Unavailable Trickey, J Liyah PA Unavailable Unavailable Trickey, J Liyah PA Unavailable Unavailable Trickey, J Liyah PA Unavailable Unavailable Trickey, J Liyah PA Unavailable Unavailable Trickey, J Liyah PA Unavailable Unavailable Trickey, J Liyah PA Unavailable Unavailable Trickey, J Liyah PA Unavailable Unavailable Trickey, J Liyah PA Unavailable Unavailable Trickey, J Liyah PA Unavailable Unavailable Trickey, J Liyah PA Unavailable Unavailable Trickey, J Liyah PA Unavailable Unavailable Trickey, J Liyah PA Unavailable Unavailable Trickey, J Liyah PA Unavailable Unavailable Trickey, J Liyah PA Unavailable Unavailable Trickey, J Liyah PA Unavailable Unavailable Trickey, J Liyah PA Unavailable Unavailable Trickey, J Liayh PA Unavailable Unavailable Trickey, J Liyah PA Unavailable Unavailable Trickey, J Liyah PA Unavailable Unavailable Trickey, J Liyah PA Unavailable Unavailable Trickey, J Liyah PA Unavailable Unavailable Trickey, J Liyah PA Unavailable Unavailable Trickey, J Liyah PA Unavailable Unavailable Trickey, J Liyah PA Unavailable Unavailable Trickey, J Liyah PA Unavailable Unavailable David Stacy MD Unavailable Unavailable Daivd Stacy MD Unavailable Unavailable David Stacy MD Unavailable Unavailable David Stacy MD Unavailable Unavailable David Stacy MD Unavailable Unavailable David Stacy MD Unavailable Unavailable David Stacy MD Unavailable Unavailable David Stacy MD Unavailable Unavailable David Stacy MD Unavailable Unavailable David Stacy MD Unavailable Unavailable David Stacy MD Unavailable Unavailable David Stacy MD Unavailable Unavailable David Stacy MD Unavailable Unavailable David Stacy MD Unavailable Unavailable David Stacy MD Unavailable Unavailable David Stacy MD Unavailable Unavailable David Stacy MD Unavailable Unavailable David Stacy MD Unavailable Unavailable David Stacy MD Unavailable Unavailable David Stacy MD Unavailable Unavailable David Stacy MD Unavailable Unavailable David Stacy MD Unavailable Unavailable David Stacy MD Unavailable Unavailable David Stacy MD Unavailable Unavailable David Stacy MD Unavailable Unavailable David Stacy MD Unavailable Unavailable David Stacy MD Unavailable Unavailable David Stacy MD Unavailable Unavailable David Stacy MD Unavailable Unavailable David Stacy MD Unavailable Unavailable David Stacy MD Unavailable Unavailable David Stacy MD Unavailable Unavailable David Stacy MD Unavailable Unavailable David Stacy MD Unavailable Unavailable David Stacy MD Unavailable Unavailable David Stacy MD Unavailable Unavailable David Stacy MD Unavailable Unavailable David Stacy MD Unavailable Unavailable David Stacy MD Unavailable Unavailable David Stacy MD Unavailable Unavailable David Stacy MD Unavailable Unavailable David Stacy MD Unavailable Unavailable David Stacy MD Unavailable Unavailable David Stacy MD Unavailable Unavailable David Stacy MD Unavailable Unavailable David Stacy MD Unavailable Unavailable David Stacy MD Unavailable Unavailable David Stacy MD Unavailable Unavailable David Stacy MD Unavailable Unavailable David Stacy MD Unavailable Unavailable David Stacy MD Unavailable Unavailable David Stacy MD Unavailable Unavailable David Stacy MD Unavailable Unavailable David Stacy MD Unavailable Unavailable David Stacy MD Unavailable Unavailable David Stacy MD Unavailable Unavailable David Stacy MD Unavailable Unavailable David Stacy MD Unavailable Unavailable David Stacy MD Unavailable Unavailable David Stacy MD Unavailable Unavailable David Stacy MD Unavailable Unavailable David Stacy MD Unavailable Unavailable David Stacy MD Unavailable Unavailable David Stacy MD Unavailable Unavailable David Stacy MD Unavailable Unavailable David Stacy MD Unavailable Unavailable David Stacy MD Unavailable Unavailable David Stacy MD Unavailable Unavailable David Stacy MD Unavailable Unavailable David Stacy MD Unavailable Unavailable David Stacy MD Unavailable Unavailable David Stacy MD Unavailable Unavailable David Stacy MD Unavailable Unavailable David Stacy MD Unavailable Unavailable David Stacy MD Unavailable Unavailable David Stacy MD Unavailable Unavailable David Stacy MD Unavailable Unavailable David Stacy MD Unavailable Unavailable David Stacy MD Unavailable Unavailable David Stacy MD Unavailable Unavailable David Stacy MD Unavailable Unavailable David Stacy MD Unavailable Unavailable David Stacy MD Unavailable Unavailable David Stacy MD Unavailable Unavailable David Stacy MD Unavailable Unavailable David Stacy MD Unavailable Unavailable David Stacy MD Unavailable Unavailable David Stacy MD Unavailable Unavailable David Stacy MD Unavailable Unavailable David Stacy MD Unavailable Unavailable David Stacy MD Unavailable Unavailable David Stacy MD Unavailable Unavailable David Stacy MD Unavailable Unavailable Banks, F Naya STOREPERSON-BC Unavailable Unavailable Banks, F Naya STOREPERSON-BC Unavailable Unavailable Banks, F Naya STOREPERSON-BC Unavailable Unavailable Banks, F Naya STOREPERSON-BC Unavailable Unavailable Banks, F Naya STOREPERSON-BC Unavailable Unavailable Banks, F Naya STOREPERSON-BC Unavailable Unavailable Banks, F Naya STOREPERSON-BC Unavailable Unavailable Banks, F Naya STOREPERSON-BC Unavailable Unavailable Banks, F Naya STOREPERSON-BC Unavailable Unavailable Banks, F Naya STOREPERSON-BC Unavailable Unavailable Banks, F Naya STOREPERSON-BC Unavailable Unavailable Banks, F Naya STOREPERSON-BC Unavailable Unavailable Banks, F Naya STOREPERSON-BC Unavailable Unavailable Banks, F Naya STOREPERSON-BC Unavailable Unavailable Banks, F Naya STOREPERSON-BC Unavailable Unavailable Banks, F Naya STOREPERSON-BC Unavailable Unavailable Banks, F Naya STOREPERSON-BC Unavailable Unavailable Banks, F Naya STOREPERSON-BC Unavailable Unavailable Banks, F Naya STOREPERSON-BC Unavailable Unavailable Banks, F Naya STOREPERSON-BC Unavailable Unavailable Banks, F Naya STOREPERSON-BC Unavailable Unavailable Banks, F Naya STOREPERSON-BC Unavailable Unavailable Banks, F Naya STOREPERSON-BC Unavailable Unavailable Scordo, M Mary Beth PA Unavailable Unavailable Scordo, M Mary Beth PA Unavailable Unavailable Scordo, M Mary Beth PA Unavailable Unavailable Scordo, M Mary Beth PA Unavailable Unavailable Scordo, M Mary Beth PA Unavailable Unavailable Scordo, M Mary Beth PA Unavailable Unavailable Scordo, M Mary Beth PA Unavailable Unavailable Scordo, M Mary Beth PA Unavailable Unavailable Scordo, M Mary Beth PA Unavailable Unavailable Scordo, M Mary Beth PA Unavailable Unavailable Scordo, M Mary Beth PA Unavailable Unavailable Scordo, M Mary Beth PA Unavailable Unavailable Scordo, M Mary Beth PA Unavailable Unavailable Scordo, M Mary Beth PA Unavailable Unavailable Scordo, M Mary Beth PA Unavailable Unavailable Scordo, M Mary Beth PA Unavailable Unavailable Scordo, M Mary Beth PA Unavailable Unavailable Scordo, M Mary Beth PA Unavailable Unavailable Scordo, M Mary Beth PA Unavailable Unavailable Scordo, M Mary Beth PA Unavailable Unavailable Scordo, M Mary Beth PA Unavailable Unavailable Scordo, M Mary Beth PA Unavailable Unavailable Scordo, M Mary Beth PA Unavailable Unavailable Scordo, M Mary Beth PA Unavailable Unavailable Scordo, M Mary Beth PA Unavailable Unavailable Scordo, M Mary Beth PA Unavailable Unavailable Scordo, M Maryb Eth PA Unavailable Unavailable Scordo, M Mary Beth PA Unavailable Unavailable Scordo, M Mary Beth PA Unavailable Unavailable Scordo, M Mary Beth PA Unavailable Unavailable Scordo, M Mary Beth PA Unavailable Unavailable Scordo, M Mary Beth PA Unavailable Unavailable Scordo, M Mary Beth PA Unavailable Unavailable Scordo, M Mary Beth PA Unavailable Unavailable Scordo, M Mary Beth PA Unavailable Unavailable Scordo, M Mary Beth PA Unavailable Unavailable Scordo, M Mary Beth PA Unavailable Unavailable Scordo, M Mary Beth PA Unavailable Unavailable Scordo, M Mary Beth PA Unavailable Unavailable Scordo, M Mary Beth PA Unavailable Unavailable Scordo, M Mary Beth PA Unavailable Unavailable Scordo, M Mary Beth PA Unavailable Unavailable Scordo, M Mary Beth PA Unavailable Unavailable Scordo, M Mary Beth PA Unavailable Unavailable Scordo, M Mary Beth PA Unavailable Unavailable Scordo, M Mary Beth PA Unavailable Unavailable Scordo, M Mary Beth PA Unavailable Unavailable Re-disclosure Warning The records that you are about to access may contain information from federally-assisted alcohol or drug abuse programs. If such information is present, then the following federally mandated warning applies: This information has been disclosed to you from records protected by federal confidentiality rules (42 CFR part 2). The federal rules prohibit you from making any further disclosure of this information unless further disclosure is expressly permitted by the written consent of the person to whom it pertains or as otherwise permitted by 42 CFR part 2. A general authorization for the release of medical or other information is NOT sufficient for this purpose. The Federal rules restrict any use of the information to criminally investigate or prosecute any alcohol or drug abuse patient.The records that you are about to access may contain highly sensitive health information, the redisclosure of which is protected by Article 27-F of the [place] State Public Health law. If you continue you may have access to information: Regarding HIV / AIDS; Provided by facilities licensed or operated by the [facility] Office of Mental Health; or Provided by the [facility] Office for People With Developmental Disabilities. If such information is present, then the following [facility] mandated warning applies: This information has been disclosed to you from confidential records which are protected by state law. State law prohibits you from making any further disclosure of this information without the specific written consent of the person to whom it pertains, or as otherwise permitted by law. Any unauthorized further disclosure in violation of state law may result in a fine or correction sentence or both. A general authorization for the release of medical or other information is NOT sufficient authorization for further disc losure. Family History Family Member Name Family Member Gender Family Member Status Date o f Status Description Data Source(s) Unknown Unknown Problem [facility] Unknown Unknown Problem [facility] ([facility] ) Encounters Encounter Providers Location Date Indications Data Source(s ) Outpatient Attender: Liyah XIE [facility] 06/20/2021 02:30:00 PM EDT [facility] ([facility] Long Stacy MD: [address] [place] [phone], Ph. Attender: Long Stacy MD [facility] Medical 05/11/2021 12:00:00 AM EDT [facility] ([facility]) Outpatient Attender: Liyah XIE [facility] 03/22/2021 02:30:00 PM EDT [facility] ([facility] Long Stacy MD: [address] [place] [phone], Ph. Attender: Long Stacy MD [facility] Medical 02/08/2021 12:00:00 AM EDT [facility] ([facility]) Long Stacy MD: [address] [place] [phone], Ph. Attender: Long Stacy MD [facility] Medical 02/08/2021 12:00:00 AM EDT [facility] ([facility]) Office Visit Attender: Liyah XIE [facility] 12/22/2020 01:45:00 PM EDT [facility] ([facility] ) Long Stacy MD: [address], [place] [phone], Ph. Attender: Long Stacy MD [facility] Medical 11/09/2020 12:00:00 AM EST [facility] ([facility]) Long Stacy MD: [address] [place] [phone], Ph. Attender: Long Stacy MD [facility] Medical 11/09/2020 12:00:00 AM EST [facility] ([facility]) Long Stacy MD: [address] [place] [phone], Ph. Attender: Long Stacy MD [facility] Medical 11/09/2020 12:00:00 AM EST [facility] ([facility]) Office Visit Attender: Liyah XIE Main office - [facility] 09/23/2020 10:45:00 AM EST [facility] ([facility]) Mary Beth Matson PA-C: [address], [facility] [place] [address], Ph. Attender: Mary Beth XIE [facility] Medical 08/16/2020 12:00:00 AM EST [facility] ([facility]) Mary Beth Matson PA-C: [address], [place] [address], Ph. Attender: Mary Beth XIE [facility] Medical 08/16/2020 12:00:00 AM EST [facility] ([facility]) Mary Beth Matson PA-C: [address], [place] [address], Ph. Attender: Mary Beth XIE [facility] Medical 08/16/2020 12:00:00 AM EST [facility] ([facility]) Mary Beth Matson PA-C: [address] [place] [address], Ph. Attender: Mary Beth [facility] Medical 08/16/2020 12:00:00 AM EST [facility] ([facility]) Outpatient Attender: Long Stacy MD FP 08/03/2020 09:33:00 AM EST [facility] Outpatient Attender: Long Stacy MD FP 07/08/2020 05:34:01 PM EDT [facility] Outpatient Attender: Long Stacy MD FP 07/08/2020 04:22:01 PM EDT [facility] Outpatient Attender: Long Stacy MD FP 07/08/2020 02:02:00 PM EDT [facility] Outpatient Attender: Long Stacy MD FP 07/05/2020 10:12:00 AM EDT [facility] Outpatient Attender: Long Stacy MD FP 06/28/2020 08:11:02 AM EDT [facility] Outpatient Attender: Naya BOWER FP 06/22/2020 01: 34:00 PM EDT [facility] Outpatient Attender: OG JUSTIN 06/21/2020 02:49:00 PM EDT [facility] Outpatient Attender: Naya BOWER FP 06/21/2020 09: 17:00 AM EDT [facility] Outpatient Attender: OG JUSTIN 06/02/2020 12:58:00 PM EDT [facility] Outpatient Attender: Liyah XIE [facility] office [facility] 05/27/2020 02:30:00 PM EDT [facility] ([facility]) Outpatient Attender: OG JUSTIN 05/25/2020 09:45:00 AM EDT [facility] Outpatient Attender: OG FOLEY FP 05/24/2020 10:13:01 AM EDT [facility] Immunizations Vaccine Date Status Description Data Source(s) COVID-19 VACCINE Moderna 01/24/2021 12:00:00 AM EDT completed [facility] Vaccine Series Complete: YESThis Data wa s Submitted to [facility] Via [employer]. COVID-19 VACC,MRNA(MODERNA)/PF 01/24/2021 12:00:00 AM EDT completed [facility] COVID-19 VACCINE Moderna 12/24/2020 12:00:00 AM EDT completed [facility] Vaccine Series Complete: NOThis Data was Submitted to [facility] Via [employer]. COVID-19 VACCINE, MRNA-1273, LNP-S (MODERNA)/PF 12/24/2020 1 2:00:00 AM EDT completed [facility] New in 2011. IIV4 07/08/2020 12:00:00 AM EDT completed 0.5 mL [facility] ([facility]) New in 2011. IIV4 07/08/2020 12:00:00 AM EDT completed 0.5 mL [facility] ([facility]) New in 2011. IIV4 07/08/2020 12:00:00 AM EDT completed 0.5 mL [facility] ([facility]) Medications Medication Brand Name Start Date Product Form Dose Route Admi nistrative Instructions Pharmacy Instructions Status Indications Reaction Description Data Source(s) Acetaminophen 500 MG Oral Tablet [Tylenol] Tylenol Extra Str ength 06/20/2021 12:00:00 AM EDT ORAL active M [facility] ([facility] ) Ra Lidocaine Pain Relieving Patches Maximum Strength R a Lidocaine Pain Relieving Patches Maximum Strength 06/20/2021 12:00:00 AM EDT active [facility] ([facility] ) 60 mcg (15 mcg x 4)/0.5 mL 06/19/2021 12:00:00 AM EDT syring e 0 INJECT DIRECTED INJECT DIRECTED SOLD: 06/19/2021 [facility] Aimovig Aimovig 12/22/2020 12:00:00 AM EDT SUBCUTANEOUS active [facility] ([facility]) Medrol Medrol 10/01/2020 12:00:00 AM EST active [facility] ([facility] ) Aimovig Aimovig 09/23/2020 12:00:00 AM EST SUBCUTANEOUS completed [facility] ([facility] ) cefdinir 300 MG Oral Capsule cefdinir 300 mg capsule cefdinir 30 0 mg capsule completed cefdinir 300 M G Oral Capsule [facility] ([facility]) cefdinir 300 MG Oral Capsule cefdinir 300 mg capsule cefdinir 30 0 mg capsule completed cefdinir 300 M G Oral Capsule [facility] ([facility]) celecoxib 200 MG Oral Capsule celecoxib 200 mg capsule celec oxib 200 mg capsule completed celecoxib 200 MG Oral Capsule [facility] ([facility]) cefdinir 300 MG Oral Capsule cefdinir 300 mg capsule cefdinir 30 0 mg capsule completed cefdinir 300 M G Oral Capsule [facility] ([facility]) cefdinir 300 MG Oral Capsule cefdinir 300 mg capsule cefdinir 30 0 mg capsule completed cefdinir 300 M G Oral Capsule [facility] ([facility]) Insurance Providers Payer name Policy type / Coverage type Policy ID Covered green party ID Covered green party's relationship to harris Policy Harris Plan Information Medicare Medicare Primary [id number] Self [id number] A Medicare Medicare Primary [id number] Self [id number] Medicare Medicare Primary [id number] Self [id number] Medicare Medicare Primary [id number] Self [id number] Medicare Medicare Primary [id number] Self [id number] Medicare Medicare Primary [id number] Self [id number] Medicare P [id number] S [id number] A Medicare P [id number] S [id number] Medicare P [id number] S [id number] Medicaid S [id number] S [id number] Medicaid S [id number] S [id number] Medicaid S [id number] S [id number] Medicaid S [id number] S [id number] Medicare Part B Medicare Primary [id number] Self [id number] Medicaid Medicaid [id number] Se lf [id number] MEDICARE [id number] SP [id number] A Medicaid Medicaid [id number] Se lf [id number] Medicaid Medicaid [id number] Se lf [id number] Medicare Part B Medicare Primary [id number] Self [id number] Medicare Part B Medicare Primary [id number] Self [id number] Medicaid Medicaid [id number] Se lf [id number] Medicare Part B Medicare Primary [id number] Self [id number] Medicare Part B Medicare Primary [id number] Self Medicaid Medicaid 1 1 [id number] Self 1 1 [place]ICA[place] [id number] P [place] Part B [id number] Self Medicare [facility] Medicare Primary [id number] Self Medicare Medicare Primary [id number] Self [id number] MEDICARE C [id number] S [id number] A MEDICARE [id number] SP [id number] [place] [id number] SP [id number] MEDICAID [id number] MEDICARE C [id number] S [id number] MEDICAID M [id number] S [id number] MEDICARE [id number] SP [id number] Medicare P [id number] S [id number] Medicaid Medicaid [id number] Self [id number] Medicare Part B Medicare Primary [id number] Self [id number] Medicaid Medigap Part B [id number] Self [id number] Medicaid Medicaid [id number] [id number] Problems, Conditions, and Diagnoses Code Display Name Description Problem Type Effective Dates Data Source(s) [id number] Cataract Cataract Problem 02/01/2021 12:00:00 AM ED Cullen BUTLER ([facility]) [id number] Cataract Cataract Problem 02/01/2021 12:00:00 AM ED Cullen BUTLER ([facility]) [id number] Acute bronchitis Acute Bronchitis Problem 019 12:00:00 AM EDT - 08/16/2020 12:00:00 AM ALICE BUTLER ([facility]) [id number] Acute bronchitis Acute Bronchitis Problem 019 12:00:00 AM EDT - 08/16/2020 12:00:00 AM EST [place] ([facility]) [id number] Acute bronchitis Acute Bronchitis Problem 019 12:00:00 AM EDT - 08/16/2020 12:00:00 AM EST [place] ([facility]) [id number] Acute bronchitis Acute Bronchitis Problem 019 12:00:00 AM EDT - 08/16/2020 12:00:00 AM ALICE BUTLER ([facility]) Surgeries/Procedures Procedure Description Date Indications Data Source(s) OFFICE OUTPATIENT VISIT 25 MINUTES 06/20/2021 12:00:00 AM EDT [facility] ([facility], ) OFFICE OUTPATIENT VISIT 25 MINUTES 03/22/2021 12:00:00 AM EDT [facility] ([facility], ) PHYSICIAN TELEPHONE EVALUATION 11-20 MIN 12/22/2020 12 :00:00 AM EDT [facility] ([facility], ) PHYSICIAN TELEPHONE EVALUATION 11-20 MIN 09/23/2020 12 :00:00 AM EST [facility] ([facility], ) MRI BRAIN BRAIN STEM W/O CONTRAST MATERIAL 06/24/2020 12:00:00 AM EDT [facility] ([facility], ) MRI BRAIN BRAIN STEM W/O CONTRAST MATERIAL 06/24/2020 12:00:00 AM EDT [facility] ([facility], ) Results ID Date Data Source [id number] 02/08/2021 02:10:00 PM EDT [place] ([facility]) Name Value Range Interpretation Code Description Data Ivelisse rce(s) Supporting Document(s) sars-cov-2 negative negative Sars-cov-2 [facility]) ID Date Data Source [id number] 02/08/2021 02:03:00 PM EDT [facility] Name Value Range Interpretation Code Description Data Ivelisse rce(s) Supporting Document(s) SARS coronavirus 2 RdRp gene [Presence] in Respiratory specimen by GREGOR with probe detection Not detected [facility] This lab was ordered by [facility] and reported by [facility]. ID Date Data Source [id number] 11/09/2020 01:35:00 PM EST [place] ([facility]) Name Value Range Interpretation Code Description Data Ivelisse rce(s) Supporting Document(s) thyroid stimulating hormone 1.040 uIU/mL 0.358-3.740 Thyroid Stimulating Hormone [facility]) ID Date Data Source [id number] 11/09/2020 01:35:00 PM EST [place] ([facility]) Name Value Range Interpretation Code Description Data Ivelisse rce(s) Supporting Document(s) HDL cholesterol 51 mg/dL >40 HDL Cholesterol ATHE NA ([facility]) cholesterol level 155 mg/dL <200 Cholesterol Level [place] ([facility]) triglycerides level 56 mg/dL <150 Triglycerides Le escobar [place] ([facility]) Cholesterol in LDL [Mass/volume] in Serum or Plasma 93 mg/dL <1 00 LDL Cholesterol [place] ([facility]) non-HDL-C 104 mg/dL Non-hdl-c [place] ([facility]) cholesterol risk ratio <5 Cholesterol R isk Ratio [place] ([facility]) ID Date Data Source [id number] 11/09/2020 01:35:00 PM EST [place] ([facility]) Name Value Range Interpretation Code Description Data Ivelisse rce(s) Supporting Document(s) glucose, fasting 84 mg/dL 70-100 Glucose, Fasting AT [facility] ([facility]) sodium level 132 mEq/L 136-145 Below low normal Sodium Level [place] ([facility]) creatinine for GFR 1.09 mg/dL 0.70-1.30 Creatinine for GF R [place] ([facility]) blood urea nitrogen 12 mg/dL 7-18 Blood Urea Nitro gen [place] ([facility]) glomerular filtration rate > 60.0 >56 Glomerula r Filtration Rate [place] ([facility]) potassium serum 5.0 mEq/L 3.5-5.1 Potassium Serum [place] ([facility]) carbon dioxide level 33 mEq/L 21-32 Above high normal Carbon D ioxide Level [place] ([facility]) anion gap 3 mEq/L 8-16 Below low normal Anion Gap [place] ( [facility]) chloride level 96 mEq/L 98-107 Below low normal Chloride Level [place] ([facility]) ALT/SGPT 12 U/L 12-78 ALT/SGPT [place] ([facility]) calcium level 8.9 mg/dL 8.5-10.1 Calcium Level [place] ( [facility]) AST/SGOT 13 U/L 7-37 AST/SGOT [place] ([facility]) alkaline phosphatase 50 U/L 45-117 Alkaline Phosph atase [place] ([facility]) total protein 7.5 gm/dL 6.4-8.2 Total Protein [place] ( [facility]) albumin 3.5 gm/dL 3.2-5.2 Albumin [place] ([facility]) albumin/globulin ratio Albumin/globu navin Ratio [place] ([facility]) bilirubin,total 0.4 mg/dL 0.2-1.0 Bilirubin,total ATHE NA ([facility]) ID Date Data Source [id number] 11/09/2020 01:35:00 PM EST [place] ([facility]) Name Value Range Interpretation Code Description Data Ivelisse rce(s) Supporting Document(s) white blood count 4.9 10 4.0-10.0 White Blood Count [place] ([facility]) hemoglobin 13.2 g/dL 13.5-17.5 Below low normal Hemoglobin [place] ( [facility]) red blood count 4.24 10 4.30-6.10 Below low normal Red Blood Coun t [place] ([facility]) mean corpuscular volume 95.5 fL 80.0-96.0 Mean Corpusc ular Volume [place] ([facility]) hematocrit 40.5 % 42.0-52.0 Below low normal Hematocrit [place] ( [facility]) mean corpuscular HGB conc 32.6 g/dL 32.0-36.5 Mean Corpu scular HGB Conc [place] ([facility]) mean corpuscular hemoglobin 31.1 pg 27.0-33.0 Mean Cor puscular Hemoglobin [place] ([facility]) red cell distribution width 12.8 % 11.5-14.5 Red Cell Distribution Width [place] ([facility]) neutrophils % 57.7 % 36.0-66.0 Neutrophils % [place] ( [facility]) platelet count, automated 251 10 150-450 Platelet C ount, Automated [place] ([facility]) mono % 11.0 % 2.0-8.0 Above high normal [place] % [place] ([facility]) baso % 0.6 % 0.0-1.0 Baso % [place] ([facility]) eos % 0.6 % 0.0-3.0 Eos % [place] ([facility]) lymph % 29.7 % 24.0-44.0 Lymph % [place] ([facility]) neutrophils # 2.8 10 1.5-8.5 Neutrophils # [place] ( [facility]) nucleated red blood cell % 0.0 % 0-0 Nucleated Red Blood Cell % [place] ([facility]) immature granulocyte % 0.4 % 0-3.0 Immature Gran ulocyte % [place] ([facility]) eos # 0.0 10 0.0-0.5 Eos # [place] ([facility]) lymph # 1.5 10 1.5-5.0 Lymph # [place] ([facility]) mono # 0.5 10 0.0-0.8 [place] # [place] ([facility]) baso # 0.0 10 0.0-0.2 Baso # [place] ([facility]) ID Date Data Source [id number] 11/09/2020 01:35:00 PM EST [place] ([facility]) Name Value Range Interpretation Code Description Data Ivelisse rce(s) Supporting Document(s) thyroid stimulating hormone 1.040 uIU/mL 0.358-3.740 Thyroid Stimulating Hormone [place] ([facility]) ID Date Data Source [id number] 11/09/2020 01:35:00 PM EST [place] ([facility]) Name Value Range Interpretation Code Description Data Ivelisse rce(s) Supporting Document(s) HDL cholesterol 51 mg/dL >40 HDL Cholesterol ATHE NA ([facility]) cholesterol level 155 mg/dL <200 Cholesterol Level [place] ([facility]) triglycerides level 56 mg/dL <150 Triglycerides Le escobar [place] ([facility]) cholesterol risk ratio <5 Cholesterol R isk Ratio [place] ([facility]) non-HDL-C 104 mg/dL Non-hdl-c [place] ([facility]) Cholesterol in LDL [Mass/volume] in Serum or Plasma 93 mg/dL <1 00 LDL Cholesterol [place] ([facility]) ID Date Data Source [id number] 11/09/2020 01:35:00 PM EST [place] ([facility]) Name Value Range Interpretation Code Description Data Ivelisse rce(s) Supporting Document(s) glucose, fasting 84 mg/dL 70-100 Glucose, Fasting AT [facility] ([facility]) blood urea nitrogen 12 mg/dL 7-18 Blood Urea Nitro gen [place] ([facility]) glomerular filtration rate > 60.0 >56 Glomerula r Filtration Rate [place] ([facility]) creatinine for GFR 1.09 mg/dL 0.70-1.30 Creatinine for GF R [place] ([facility]) sodium level 132 mEq/L 136-145 Below low normal Sodium Level [place] ([facility]) chloride level 96 mEq/L 98-107 Below low normal Chloride Level [place] ([facility]) carbon dioxide level 33 mEq/L 21-32 Above high normal Carbon D ioxide Level [place] ([facility]) potassium serum 5.0 mEq/L 3.5-5.1 Potassium Serum [place] ([facility]) AST/SGOT 13 U/L 7-37 AST/SGOT [place] ([facility]) calcium level 8.9 mg/dL 8.5-10.1 Calcium Level [place] ( [facility]) anion gap 3 mEq/L 8-16 Below low normal Anion Gap [place] ( [facility]) ALT/SGPT 12 U/L 12-78 ALT/SGPT [place] ([facility]) total protein 7.5 gm/dL 6.4-8.2 Total Protein [place] ( [facility]) bilirubin,total 0.4 mg/dL 0.2-1.0 Bilirubin,total [place] ([facility]) alkaline phosphatase 50 U/L 45-117 Alkaline Phosph atase [place] ([facility]) albumin 3.5 gm/dL 3.2-5.2 Albumin [place] ([facility]) albumin/globulin ratio Albumin/globu navin Ratio [place] ([facility]) ID Date Data Source [id number] 11/09/2020 01:35:00 PM EST [place] ([facility]) Name Value Range Interpretation Code Description Data Ivelisse rce(s) Supporting Document(s) red blood count 4.24 10 4.30-6.10 Below low normal Red Blood Coun t [place] ([facility]) white blood count 4.9 10 4.0-10.0 White Blood Count [place] ([facility]) hematocrit 40.5 % 42.0-52.0 Below low normal Hematocrit [place] ( [facility]) mean corpuscular volume 95.5 fL 80.0-96.0 Mean Corpusc ular Volume [place] ([facility]) hemoglobin 13.2 g/dL 13.5-17.5 Below low normal Hemoglobin [place] ( [facility]) mean corpuscular HGB conc 32.6 g/dL 32.0-36.5 Mean Corpu scular HGB Conc [place] ([facility]) mean corpuscular hemoglobin 31.1 pg 27.0-33.0 Mean Cor puscular Hemoglobin [place] ([facility]) red cell distribution width 12.8 % 11.5-14.5 Red Cell Distribution Width [place] ([facility]) platelet count, automated 251 10 150-450 Platelet C ount, Automated [place] ([facility]) mono % 11.0 % 2.0-8.0 Above high normal [place] % [place] ([facility]) lymph % 29.7 % 24.0-44.0 Lymph % [place] ([facility]) neutrophils % 57.7 % 36.0-66.0 Neutrophils % [place] ( [facility]) baso % 0.6 % 0.0-1.0 Baso % [place] ([facility]) eos % 0.6 % 0.0-3.0 Eos % [place] ([facility]) immature granulocyte % 0.4 % 0-3.0 Immature Gran ulocyte % [place] ([facility]) neutrophils # 2.8 10 1.5-8.5 Neutrophils # [place] ( [facility]) mono # 0.5 10 0.0-0.8 [place] # [place] ([facility]) nucleated red blood cell % 0.0 % 0-0 Nucleated Red Blood Cell % [place] ([facility]) lymph # 1.5 10 1.5-5.0 Lymph # [place] ([facility]) baso # 0.0 10 0.0-0.2 Baso # [place] ([facility]) eos # 0.0 10 0.0-0.5 Eos # [place] ([facility]) ID Date Data Source [id number] 07/08/2020 02:52:43 PM EDT [facility] Measurements & CalculationsHeight: 75 inches (6 ft. 3 in.) 190.50 cm Weight: 222 pounds 2 oz. 100.97 kg Body Mass Index (BMI): 27.86BMI Interpretation: OverweightBody Surface Area (BSA): 2.30Weight Management Education Done (Nutrition/Physical Activity)Vital SignsTemperature: 98.3F tympanic Pulse Rate: 55 beats/minuteRespiratory Rate: 18 respirations/minuteBlood Pressure: 105/56 right arm sitting automaticO2 Saturation: 97% sittingVital Signs performed by: Filemon Dyer MA, July 08, 2020 3:07 PMInitial Intake Information From: patientRoom #: 13Infectious Disease / Travel ScreeningRecent travel for you or any close contacts? NoHave you had any close contact with anyone diagnosed with or under investigation for COVID-19 (coronavirus)? NoFever? NoRespiratory symptoms: cough, cold, congestion, shortness of breath, difficulty breathing? NoLoss of smell? NoLoss o f taste? NoSmoking, Tobacco, Vaping or Smoke Exposure StatusSmoke Status: current every day smokerTobacco Use: YesAdv to Quit: YesDo you vape? NoHealthcare HistorySince your last office visit...Have you been admitted to the hospital? NoHave you been to an emergency room (ER) or urgent care clinic? NoHave you seen another healthcare provider? Yes - Liyah Mckeon (brain scan)Healthcare provider date reported today: 06/30/2020Have you seen a dentist? NoIntake performed by: Filemon Dyer MA, July 08, 2020 2:59 PMRate Your HealthIn general, would you say your health is? Very GoodPain AssessmentAre you currently having any pain which... You would like your provider to address? Yes Affects your activity level? YesPatient Learning & Communication Needs Preferred learning style: by experiencePossible barriers: nonePatient's Language used in visit: YesLanguage: Chadian Pain AssessmentPain ScaleNumeric Rating Scale: 8 / 10Location: L Hip Duration: monthsFrequency: DailyCharacter/Quality: aching, sharp, throbbing and pinchingIs the pain radiating? NoScreening, Brief Intervention, & Referral to Treatment (SBIRT)Pre- Screening Questions How many times have you have 5 or more drinks in a day? 0How many times have you used an illegal drug or used a prescription medication for a non-medical reason? 0Performed by: Filemon Dyer MA, July 08, 2020 3:02 PMPatient History Medical History:depressionCOPDTBISurgical History:No known surgical historyFamily History:mother-diabetes ()Social/Personal History: Advised to Quit/Tobacco Education: YesChief Complaintfollow-up visit/ R hip painHistory of Present Illness (HPI)No relief with Celebrex.He has not seen Ortho for a long time.Hurts to walk for long distances so he is reluctant to go to see Ortho because he has to walk there.HPI performed by: Long Stacy MD, July 08, 2020 5:30 PMTransitions of Care InboundProblem ReviewProblem List was reviewed and/or updated during this visit.Medication Reconciliation & ReviewMedication List was reviewed and/or updated during this visit, including review of any qgqj-vdm-vrjpygo medications, herbal therapies, and/or supplements.Allergy ReviewAllergy List was reviewed and/or updated during this visit.Adult Preventive CareProvider Calculated and Reviewed all Clinical Protocols for patient today. Screening Tobacco Screening: Smoking Status: current every day smoker (07/08/2020) Tobacco Use: Currently (07/08/2020) Advised to Quit: Yes (07/08/2020)Labs/Meds/Other Counseling-Nutrition and Physical Activity:BMI Interpretation: Overweight (07/08/2020) Counseling: Done (07/08/2020) Physical Activity: Done (07/08/2020)Review of Systems General: Denies dizziness, fatigue, headache. Cardiovascular: Denies chest pain. Respiratory: Denies difficulty breathing, shortness of breath. Gastr ointestinal: Denies diarrhea, constipation. Genitourinary: Denies urinary frequency, urinary urgency, incomplete emptying. Physical ExamGeneral Appearance: well nourished, well hydrated, no acute distressRespiratory, Auscultation: clear to auscultation bilaterally; no rales, rhonchi, or wheezesRespiratory, Effort: no intercostal retractions or use of accessory musclesCardiovascular, Auscultation: S1, S2 audible; no murmur, rub, or gallop; RRRGait & Station: normalSkin, Inspection: no rashes, lesions, or ulcerationsOrientation: oriented to time, place, and personMood & Affect: no depression, anxiety, or agitationJudgment & Insight: intactCare Management Plan Transitions of CareInboundRate Your HealthIn general, would you say your health is? Very GoodAssessment & Plan Problems:Assessed:Hip pain, left (ICD-719.45) (QOL54-Z17.552) Assessment: Instructions: Refer back to Ortho.We will do what we can to ehlp with transportation.Patient Instructions/Care Plan: Hip pain- left: Refer back to Ortho.We will do what we can to help with transportation. Plan developed in collaboration with patient and/or familyMedications:CELEBREX 200 MG ORAL CAPSULEVENTOLIN HFA 108 (90 BASE) MCG/ACT INHALATION AEROSOL SOLUTIONHALOPERIDOL 5 MG ORAL TABLETBUSPIRONE HCL 10 MG ORAL TABLETDEPAKOTE 500 MG ORAL TABLET DELAYED RELEASETRAZODONE HCL 150 MG ORAL TABLETAllergies:No Known Allergies (updated 05/07/2020) Orders:FluLaval Quadrivalent, preservative free [CPT-40896] 59571 - Immo Admin (over 19 yrs), 1st Vaccine [CPT-31570] Adult - Ofc Vst, EST, Level III [CPT-27487] Orthopaedics Consult [CPT-29874] Adult Questionnaire1) Does the patient have a long-term health problem with heart disease, lung disease, asthma, kidney disease, metabolic disease (e.g., diabetes), anemia, or other blood disorder? Yes2) Does the patient have allergies to medications, food, a vaccine component, or latex? No3) Does the patient have cancer, leukemia, AIDS, or any other immune system problem? No4) Does the patient live with or expect to have close contact with a person whose immune system is severely compromised and who must be in protective isolation (e.g., an isolation room of a bone marrow transplant unit)? No5) Does the patient take cortisone, prednisone, other steroids, or anticancer drugs, or has the patient had radiation treatments? No6) During the past year, has the patient received a transfusion of blood or blood products, or been given immune (gamma) globulin or an antiviral drug? No7) For women: Is the patient or is there a chance she could become during the next month? No8) Has the patient ever had a serious reaction to a vaccine in the past? No9) Has the patient had a seizure or a brain or other nervous system problem? No10) Has the patient received any vaccinations in the past 4 weeks? No11) Is the patient older than age 49 years? No12) Is the patient sick today? No13) Vaccine information given and explained to patient? YesVaccines Administered/Entered:V accination Group: InfluenzaSeries: 2Vaccination: Flulaval Quadrivalent Intramuscular Suspension Prefilled Syringe 0.5 MLMfr / Lot# / Exp.Date: [employer] / [id number] 1Amt. Given / Route / Site: 0.5 mL / IM / Left DeltoidNDC / CVX: [id number] / 150Administered Date: 07/08/2020 15:53VFC Eligibility: Not VFC EligibleVIS Date: 05/08/2019VIS Given / VIS Given On: Yes / 07/08/2020Comments: Administered by: Dayanna Rutherford LPN Name Value Range Interpretation Code Description Data Ivelisse rce(s) Supporting Document(s) Procedure Social History No Information Vital Signs ID Date Data Source UNK Name Value Range Interpretation Code Description Data Source(s) Systolic blood pressure 118 mm[Hg] 118 mm[Hg] M [facility] ([facility], ) Diastolic blood pressure 80 mm[Hg] 80 mm[Hg] [facility] ([facility], ) Heart rate 80 /min 80 /min [facility] ([facility], ) Respiratory rate 16 /min 16 /min [facility] ( [facility], ) Body mass index (BMI) [Ratio] 26.1 kg/m2 26.1 k g/m2 [place] ([facility]) Systolic blood pressure 115 mm[Hg] 115 mm[Hg] A [place] ([facility]) Body weight 3346 [oz_av] 3346 [oz_av] [place] ([facility]) Diastolic blood pressure 70 mm[Hg] 70 mm[Hg] [place] ([facility]) Body height 75 [in_i] 75 [in_i] [place] ([facility]) Systolic blood pressure 124 mm[Hg] 124 mm[Hg] M EDENT ([facility], ) Diastolic blood pressure 80 mm[Hg] 80 mm[Hg] [facility] ([facility], ) Heart rate 80 /min 80 /min [facility] ([facility], ) Respiratory rate 16 /min 16 /min [facility] ( [facility], ) Diastolic blood pressure 62 mm[Hg] 62 mm[Hg] [place] ([facility]) Body height 75 [in_i] 75 [in_i] [place] ([facility]) Body mass index (BMI) [Ratio] 27.4 kg/m2 27.4 k g/m2 [place] ([facility]) Systolic blood pressure 113 mm[Hg] 113 mm[Hg] A [place] ([facility]) Body weight 3504 [oz_av] 3504 [oz_av] [place] ([facility]) Diastolic blood pressure 62 mm[Hg] 62 mm[Hg] [place] ([facility]) Body height 75 [in_i] 75 [in_i] [place] ([facility]) Body mass index (BMI) [Ratio] 27.4 kg/m2 27.4 k g/m2 [place] ([facility]) Systolic blood pressure 113 mm[Hg] 113 mm[Hg] [facility]) Body weight 3504 [oz_av] 3504 [oz_av] [place] ([facility]) Diastolic blood pressure 65 mm[Hg] 65 mm[Hg] [place] ([facility]) Body height 75 [in_i] 75 [in_i] [place] ([facility]) Body mass index (BMI) [Ratio] 29.1 kg/m2 29.1 k g/m2 [place] ([facility]) Systolic blood pressure 103 mm[Hg] 103 mm[Hg] [facility] ([facility]) Body weight 3728 [oz_av] 3728 [oz_av] [place] ([facility]) Body mass index (BMI) [Ratio] 29.1 kg/m2 29.1 k g/m2 [place] ([facility]) Systolic blood pressure 103 mm[Hg] 103 mm[Hg] [facility] ([facility]) Body weight 3728 [oz_av] 3728 [oz_av] [place] ([facility]) Diastolic blood pressure 65 mm[Hg] 65 mm[Hg] [place] ([facility]) Body height 75 [in_i] 75 [in_i] [place] ([facility]) Diastolic blood pressure 65 mm[Hg] 65 mm[Hg] [place] ([facility]) Body height 75 [in_i] 75 [in_i] [place] ([facility]) Body mass index (BMI) [Ratio] 29.1 kg/m2 29.1 k g/m2 [place] ([facility]) Systolic blood pressure 103 mm[Hg] 103 mm[Hg] [facility] [place]) Body weight 3728 [oz_av] 3728 [oz_av] [place] ([facility]) Diastolic blood pressure 58 mm[Hg] 58 mm[Hg] [place] ([facility]) Body height 75 [in_i] 75 [in_i] [place] ([facility]) Body mass index (BMI) [Ratio] 26.8 kg/m2 26.8 k g/m2 [place] ([facility]) Systolic blood pressure 115 mm[Hg] 115 mm[Hg] [place] [facility] [place]) Body weight 3432 [oz_av] 3432 [oz_av] [place] ([facility]) Diastolic blood pressure 58 mm[Hg] 58 mm[Hg] [place] ([facility]) Body height 75 [in_i] 75 [in_i] [place] ([facility]) Body mass index (BMI) [Ratio] 26.8 kg/m2 26.8 k g/m2 [place] ([facility]) Systolic blood pressure 115 mm[Hg] 115 mm[Hg] [place] [facility] [place] [facility]) Body weight 3432 [oz_av] 3432 [oz_av] [place] ([facility]) Diastolic blood pressure 58 mm[Hg] 58 mm[Hg] [place] ([facility]) Body height 75 [in_i] 75 [in_i] [place] ([facility]) Body mass index (BMI) [Ratio] 26.8 kg/m2 26.8 k g/m2 [place] ([facility]) Systolic blood pressure 115 mm[Hg] 115 mm[Hg] A [place] ([facility]) Body weight 3432 [oz_av] 3432 [oz_av] [place] ([facility]) Diastolic blood pressure 58 mm[Hg] 58 mm[Hg] [place] ([facility]) Body height 75 [in_i] 75 [in_i] [place] ([facility]) Body mass index (BMI) [Ratio] 26.8 kg/m2 26.8 k g/m2 [place] ([facility]) Systolic blood pressure 115 mm[Hg] 115 mm[Hg] A [place] ([facility]) Body weight 3432 [oz_av] 3432 [oz_av] [place] ([facility]) Diastolic blood pressure 56 mm[Hg] 56 mm[Hg] [place] ([facility]) Body height 75 [in_i] 75 [in_i] [place] ([facility]) Body mass index (BMI) [Ratio] 27.86 kg/m2 27.86 kg/m2 [place] ([facility]) Systolic blood pressure 105 mm[Hg] 105 mm[Hg] A [place] ([facility]) Body weight 3554.08 [oz_av] 3554.08 [oz_av] ATH EFRAIN ([facility]) Diastolic blood pressure 56 mm[Hg] 56 mm[Hg] [place] ([facility]) Body height 75 [in_i] 75 [in_i] [place] ([facility]) Body mass index (BMI) [Ratio] 27.86 kg/m2 27.86 kg/m2 [place] ([facility]) Systolic blood pressure 105 mm[Hg] 105 mm[Hg] A [place] ([facility]) Body weight 3554.08 [oz_av] 3554.08 [oz_av] ATH EFRAIN ([facility]) Diastolic blood pressure 56 mm[Hg] 56 mm[Hg] [place] ([facility]) Body height 75 [in_i] 75 [in_i] [place] ([facility]) Body mass index (BMI) [Ratio] 27.86 kg/m2 27.86 kg/m2 [place] ([facility]) Systolic blood pressure 105 mm[Hg] 105 mm[Hg] A [place] ([facility]) Body weight 3554.08 [oz_av] 3554.08 [oz_av] ATH EFRAIN ([facility]) Heart rate 76 /min 76 /min MED[facility] ([facility], ) Systolic blood pressure 110 mm[Hg] 110 mm[Hg] M EDENT ([facility], ) Respiratory rate 16 /min 16 /min MED[facility] ( [facility], ) Diastolic blood pressure 80 mm[Hg] 80 mm[Hg] [facility] ([facility], ) Patient Treatment Plan of Care Planned Activity Planned Date Details Description Data Source (s) cefdinir 300 MG Oral Capsule [place] ([facility]) celecoxib 200 MG Oral Capsule [place] ([facility]) cefdinir 300 MG Oral Capsule [facility] ([facility]) cefdinir 300 MG Oral Capsule [place] ([facility]) cefdinir 300 MG Oral Capsule [place] ([facility])
[2021-07-22] MEDS ORDERED: LIDOCAINE 2% MDV 20ML VIAL SC ONE (17:50)
[2021-07-22] MEDS ORDERED: CEPH500C PO (18:29)
--- OUTSIDE RECORDS SUMMARY | 2021-07-22 18:37 | CCD ---
Author Author [facility] Organization [facility] Address Unknown Phone Unavailable Care Team Providers Care Human Resources Specialist Name Role Phone David Stacy MD Unavailable [...] David Stacy MD Unavailable Unavailable Naya Banks MEDICAL TECHNOLOGIST BLOOD BANK MEDICAL TECHNOLOGIST BLOOD BANK Unavailable Unavailable Trickey, J Liyah PA Unavailable [...] Unavailable Unavailable David Stacy MD Unavailable Unavailable Dvaid Stacy MD Unavailable Unavailable David Stacy MD [...] Unavailable David Stacy MD Unavailable Unavailable David Satcy MD Unavailable Unavailable David Stacy MD Unavailable Unavailable David Stacy MD Unavailable Unavailable David Stacy MD Unavailable Unavailable David Stacy MD Unavailable Unavailable Banks, F Naya MEDICAL TECHNOLOGIST BLOOD BANK-BC Unavailable Unavailable Banks, F Naya MEDICAL TECHNOLOGIST BLOOD BANK-BC Unavailable Unavailable Banks, F Naya MEDICAL TECHNOLOGIST BLOOD BANK-BC Unavailable Unavailable Banks, F Naya MEDICAL TECHNOLOGIST BLOOD BANK-BC Unavailable Unavailable Banks, F Naya MEDICAL TECHNOLOGIST BLOOD BANK-BC Unavailable Unavailable Banks, F Naya MEDICAL TECHNOLOGIST BLOOD BANK-BC Unavailable Unavailable Banks, F Naya MEDICAL TECHNOLOGIST BLOOD BANK-BC Unavailable Unavailable Banks, F Naya MEDICAL TECHNOLOGIST BLOOD BANK-BC Unavailable Unavailable Banks, F Naya MEDICAL TECHNOLOGIST BLOOD BANK-BC Unavailable Unavailable Banks, F Naya MEDICAL TECHNOLOGIST BLOOD BANK-BC Unavailable Unavailable Banks, F Naya MEDICAL TECHNOLOGIST BLOOD BANK-BC Unavailable Unavailable Banks, F Naya MEDICAL TECHNOLOGIST BLOOD BANK-BC Unavailable Unavailable Banks, F Naya MEDICAL TECHNOLOGIST BLOOD BANK-BC Unavailable Unavailable Banks, F Naya MEDICAL TECHNOLOGIST BLOOD BANK-BC Unavailable Unavailable Banks, F Naya MEDICAL TECHNOLOGIST BLOOD BANK-BC Unavailable Unavailable Banks, F Naya MEDICAL TECHNOLOGIST BLOOD BANK-BC Unavailable Unavailable Banks, F Naya MEDICAL TECHNOLOGIST BLOOD BANK-BC Unavailable Unavailable Banks, F Naya MEDICAL TECHNOLOGIST BLOOD BANK-BC Unavailable Unavailable Banks, F Naya MEDICAL TECHNOLOGIST BLOOD BANK-BC Unavailable Unavailable Banks, F Naya MEDICAL TECHNOLOGIST BLOOD BANK-BC Unavailable Unavailable Banks, F Naya MEDICAL TECHNOLOGIST BLOOD BANK-BC Unavailable Unavailable Banks, F Naya MEDICAL TECHNOLOGIST BLOOD BANK-BC Unavailable Unavailable Banks, F Naya MEDICAL TECHNOLOGIST BLOOD BANK-BC Unavailable Unavailable Scordo, M Mary Beth PA [...] is protected by Article 27-F of the [place] State Public Health law. If you continue you may have access to information: Regarding HIV / AIDS; Provided by facilities licensed or operated by the [facility] Office of Mental Health; or Provided by the [facility] Office for People With Developmental Disabilities. If such information is present, then the following [facility] mandated warning applies: This information has been [...] law may result in a fine or usp sentence or both. A general authorization for the release of medical or other information is NOT sufficient authorization for further disc losure. Family History Family Member Name Family Member Gender Family Member Status Date o f Status Description Data Source(s) Unknown Unknown Problem [facility] ([facility] Unknown Unknown Problem [facility] ([facility], ) Encounters Encounter Providers Location Date Indications Data Source(s ) Outpatient Attender: Liyah XIE [facility] 06/20/2021 02:30:00 PM EDT [facility] ([facility] Long Stacy MD: [address] [place] [phone], Ph. Attender: Long Stacy MD [facility] 05/11/2021 12:00:00 AM EDT [place] ([facility]) Outpatient Attender: Liyah XIE [facility] 03/22/2021 02:30:00 PM EDT [facility] ([facility]) Long Stacy MD: [address] [place] [phone], Ph. Attender: Long Stacy MD [facility] 02/08/2021 12:00:00 AM EDT [place] ([facility]) Long Stacy MD: [address] [place] [phone], Ph. Attender: Long Stacy MD [facility] 02/08/2021 12:00:00 AM EDT [place] ([facility]) Office Visit Attender: Liyah XIE [facility] 12/22/2020 01:45:00 PM EDT MED[facility] ([facility], ) Long Stacy MD: [address], [place] [phone], Ph. Attender: Long Stacy MD [facility] 11/09/2020 12:00:00 AM EST [place] ([facility]) Long Stacy MD: [address] [place] [phone], Ph. Attender: Long Stacy MD [facility] 11/09/2020 12:00:00 AM EST [place] ([facility]) Long Stacy MD: [address] [place] [phone], Ph. Attender: Long Stacy MD [facility] 11/09/2020 12:00:00 AM EST [place] ([facility]) Office Visit Attender: Liyah XIE Main office - [facility] 09/23/2020 10:45:00 AM EST MED[facility] ([facility]) Mary Beth Matson PA-C: [address], [place] [address], Ph. Attender: Mary Beth XIE [facility] 08/16/2020 12:00:00 AM EST [place] ([facility]) Mary Beth Matson PA-C: [address], [place] [address], Ph. Attender: Mary Beth XIE [facility] 08/16/2020 12:00:00 AM EST [place] ([facility]) Mary Beth Matson PA-C: [address], [place] [address], Ph. Attender: Mary Beth XIE [facility] 08/16/2020 12:00:00 AM EST [place] ([facility]) Mary Beth Matson PA-C: [address] [place] [address], Ph. Attender: Mary Beth [facility] 08/16/2020 12:00:00 AM EST [place] ([facility]) Outpatient Attender: Long Stacy MD FP 08/03/2020 09:33:00 AM EST [facility] Outpatient Attender: Long Stacy MD FP 07/08/2020 05:34:01 PM EDT [facility] Outpatient Attender: Long Stacy MD FP 07/08/2020 04:22:01 PM EDT [facility] Outpatient Attender: Long Stacy MD FP 07/08/2020 02:02:00 PM EDT [facility] Outpatient Attender: Long Stacy MD FP 07/05/2020 10:12:00 AM EDT [facility] Outpatient Attender: Long Stacy MD FP 06/28/2020 08:11:02 AM EDT [facility] Outpatient Attender: Naya BOWER FP 06/22/2020 01: 34:00 PM EDT [facility] Outpatient Attender: OG JUSTIN 06/21/2020 02:49:00 PM EDT [facility] Outpatient Attender: Naya BOWER FP 06/21/2020 09: 17:00 AM EDT [facility] Outpatient Attender: OG JUSTIN 06/02/2020 12:58:00 PM EDT [facility] Outpatient Attender: Liyah XIE [facility] office [facility] 05/27/2020 02:30:00 PM EDT MED[facility] ([facility]) Outpatient Attender: OG JUSTIN 05/25/2020 09:45:00 AM EDT [facility] Outpatient Attender: OG FOLEY FP 05/24/2020 10:13:01 AM EDT [facility] Immunizations Vaccine Date Status Description Data Source(s) COVID-19 VACCINE Moderna 01/24/2021 12:00:00 AM EDT completed [facility] Vaccine Series Complete: YESThis Data wa s Submitted to [facility] Via [employer]. COVID-19 VACC,MRNA(MODERNA)/PF 01/24/2021 12:00:00 AM EDT completed [facility] COVID-19 VACCINE Moderna 12/24/2020 12:00:00 AM EDT completed [facility] Vaccine Series Complete: NOThis Data was Submitted to [facility] Via [employer]. COVID-19 VACCINE, MRNA-1273, LNP-S (MODERNA)/PF 12/24/2020 1 2:00:00 AM EDT completed [facility] New in 2011. IIV4 07/08/2020 12:00:00 AM EDT completed 0.5 mL [place] ([facility]) New in 2011. IIV4 07/08/2020 12:00:00 AM EDT completed 0.5 mL [place] ([facility]) New in 2011. IIV4 07/08/2020 12:00:00 AM EDT completed 0.5 mL [place] ([facility]) Medications Medication Brand Name Start Date Product Form Dose Route Admi nistrative Instructions Pharmacy Instructions Status Indications Reaction Description Data Source(s) Acetaminophen 500 MG Oral Tablet [Tylenol] Tylenol Extra Str ength 06/20/2021 12:00:00 AM EDT ORAL active M [facility] ([facility] ) Ra Lidocaine Pain Relieving Patches Maximum Strength R a Lidocaine Pain Relieving Patches Maximum Strength 06/20/2021 12:00:00 AM EDT active [facility] ([facility] ) 60 mcg (15 mcg x 4)/0.5 mL 06/19/2021 12:00:00 AM EDT syring e 0 INJECT DIRECTED INJECT DIRECTED SOLD: 06/19/2021 [facility] Aimovig Aimovig 12/22/2020 12:00:00 AM EDT SUBCUTANEOUS active [facility] ([facility]) Medrol Medrol 10/01/2020 12:00:00 AM EST active [facility] ([facility] ) Aimovig Aimovig 09/23/2020 12:00:00 AM EST SUBCUTANEOUS completed [facility] ([facility] ) cefdinir 300 MG Oral Capsule cefdinir 300 mg capsule cefdinir 30 0 mg capsule completed cefdinir 300 M G Oral Capsule [place] ([facility]) cefdinir 300 MG Oral Capsule cefdinir 300 mg capsule cefdinir 30 0 mg capsule completed cefdinir 300 M G Oral Capsule [place] ([facility]) celecoxib 200 MG Oral Capsule celecoxib 200 mg capsule celec oxib 200 mg capsule completed celecoxib 200 MG Oral Capsule [place] ([facility]) cefdinir 300 MG Oral Capsule cefdinir 300 mg capsule cefdinir 30 0 mg capsule completed cefdinir 300 M G Oral Capsule [place] ([facility]) cefdinir 300 MG Oral Capsule cefdinir 300 mg capsule cefdinir 30 0 mg capsule completed cefdinir 300 M G Oral Capsule [place] ([facility]) Insurance Providers Payer name Policy type / Coverage type Policy ID Covered alliance party ID Covered alliance party's relationship to harris Policy Harris Plan Information Medicare Medicare Primary [id number] Self [id number] A Medicare Medicare Primary [id number] Self [id number] Medicare Medicare Primary [id number] Self [id number] Medicare Medicare Primary [id number] Self [id number] Medicare Medicare Primary [id number] Self [id number] Medicare Medicare Primary [id number] Self [id number] Medicare P [id number] S [id number] A Medicare P [id number] S [id number] [id number] Medicare P [id number] S [id number] C25 Medicaid S [id number] S [id number] Medicaid S [id number] S [id number] Medicaid S [id number] S [id number] Medicaid S [id number] S [id number] Medicare Part B Medicare Primary [id number] Self [id number] Medicaid Medicaid [id number] Se lf [id number] MEDICARE [id number] SP [id number] A Medicaid Medicaid [id number] Se lf [id number] Medicaid Medicaid [id number] Se lf [id number] Medicare Part B Medicare Primary [id number] Self [id number] Medicare Part B Medicare Primary [id number] Self [id number] Medicaid Medicaid [id number] Se lf [id number] Medicare Part B Medicare Primary [id number] Self [id number] Medicare Part B Medicare Primary [id number] Self Medicaid Medicaid 1 1 [id number] Self 1 1 [place] [id number] SP [id number] [place] B [id number] Self Medicare [facility] Medicare Primary [id number] Self Medicare Medicare Primary [id number] Self [id number] MEDICARE C [id number] S [id number] A MEDICARE [id number] SP [id number] [id number] [id number] SP [id number] MEDICAID [id number] SP [id number] MEDICARE C [id number] S [id number] [id number] MEDICAID M [id number] S [id number] MEDICARE [id number] SP [id number] [id number] Medicare P [id number] S [id number] [id number] Medicaid Medicaid [id number] Self [id number] Medicare Part B Medicare Primary [id number] Self [id number] Medicaid Medigap Part B [id number] Self [id number] Medicaid Medicaid [id number] Se lf [id number] Problems, Conditions, and Diagnoses Code Display Name Description Problem Type Effective Dates Data Source(s) [id number] Cataract Cataract Problem 02/01/2021 12:00:00 AM ED [place] ([facility]) [id number] Cataract Cataract Problem 02/01/2021 12:00:00 AM ED [place]ullen [place] ([facility]) [id number] Acute bronchitis Acute Bronchitis Problem 019 12:00:00 AM EDT - 08/16/2020 12:00:00 AM ALICE [place] ([facility]) [id number] Acute bronchitis Acute Bronchitis Problem 019 12:00:00 AM EDT - 08/16/2020 12:00:00 AM EST [place] ([facility]) [id number] Acute bronchitis Acute Bronchitis Problem 019 12:00:00 AM EDT - 08/16/2020 12:00:00 AM EST [place] ([facility]) [id number] Acute bronchitis Acute Bronchitis Problem 019 12:00:00 AM EDT - 08/16/2020 12:00:00 AM ALICE [place] ([facility]) Surgeries/Procedures Procedure Description Date Indications Data Source(s) OFFICE OUTPATIENT VISIT 25 MINUTES 06/20/2021 12:00:00 AM EDT [facility] ([facility] ) OFFICE OUTPATIENT VISIT 25 MINUTES 03/22/2021 12:00:00 AM EDT [facility] ([facility] ) PHYSICIAN TELEPHONE EVALUATION 11-20 MIN 12/22/2020 12 :00:00 AM EDT [facility] ([facility] ) PHYSICIAN TELEPHONE EVALUATION 11-20 MIN 09/23/2020 12 :00:00 AM EST [facility] ([facility] ) MRI BRAIN BRAIN STEM W/O CONTRAST MATERIAL 06/24/2020 12:00:00 AM EDT [facility] ([facility] ) MRI BRAIN BRAIN STEM W/O CONTRAST MATERIAL 06/24/2020 12:00:00 AM EDT [facility] ([facility] ) Results ID Date Data Source [id number] 02/08/2021 02:10:00 PM EDT [place] ([facility]) Name Value Range Interpretation Code Description Data Ivelisse rce(s) Supporting Document(s) sars-cov-2 negative negative Sars-cov-2 [facility]) ID Date Data Source [id number] 02/08/2021 02:03:00 PM EDT [facility] Name Value Range Interpretation Code Description Data Ivelisse rce(s) Supporting Document(s) SARS coronavirus 2 RdRp gene [Presence] in Respiratory specimen by GREGOR with probe detection Not detected [facility] This lab was ordered by [facility] and reported by [facility]. ID Date Data Source [id number] 11/09/2020 01:35:00 PM EST [place] ([facility]) Name Value Range Interpretation Code Description Data Ivelisse rce(s) Supporting Document(s) thyroid stimulating hormone 1.040 uIU/mL 0.358-3.740 Thyroid Stimulating Hormone [facility]) ID Date Data Source [id number] 11/09/2020 01:35:00 PM EST [place] ([facility]) Name Value Range Interpretation Code Description Data Ivelisse rce(s) Supporting Document(s) HDL cholesterol 51 mg/dL >40 HDL Cholesterol ATHE NA ([facility]) cholesterol level 155 mg/dL <200 Cholesterol Level [place] ([facility]) triglycerides level 56 mg/dL <150 Triglycerides Le escobar [place] ([facility]) Cholesterol in LDL [Mass/volume] in Serum or Plasma 93 mg/dL <1 00 LDL Cholesterol [place] ([facility]) non-HDL-C 104 mg/dL Non-hdl-c [place] ([facility]) cholesterol risk ratio <5 Cholesterol R isk Ratio [place] ([facility]) ID Date Data Source [id number] 11/09/2020 01:35:00 PM EST [place] ([facility]) Name Value Range Interpretation Code Description Data Ivelisse rce(s) Supporting Document(s) glucose, fasting 84 mg/dL 70-100 Glucose, Fasting AT [facility] ([facility]) sodium level 132 mEq/L 136-145 Below low normal Sodium Level [facility] ([facility]) creatinine for GFR 1.09 mg/dL 0.70-1.30 Creatinine for GF R [place] ([facility]) blood urea nitrogen 12 mg/dL 7-18 Blood Urea Nitro gen [place] ([facility]) glomerular filtration rate > 60.0 >56 Glomerula r Filtration Rate [place] ([facility]) potassium serum 5.0 mEq/L 3.5-5.1 Potassium Serum [facility] ([facility]) carbon dioxide level 33 mEq/L 21-32 Above high normal Carbon D ioxide Level [place] ([facility]) anion gap 3 mEq/L 8-16 Below low normal Anion Gap [place] ( [facility]) chloride level 96 mEq/L 98-107 Below low normal Chloride Level [place] ([facility]) ALT/SGPT 12 U/L 12-78 ALT/SGPT [place] ([facility]) calcium level 8.9 mg/dL 8.5-10.1 Calcium Level [place] ( [facility]) AST/SGOT 13 U/L 7-37 AST/SGOT [place] ([facility]) alkaline phosphatase 50 U/L 45-117 Alkaline Phosph atase [place] ([facility]) total protein 7.5 gm/dL 6.4-8.2 Total Protein [place] ( [facility]) albumin 3.5 gm/dL 3.2-5.2 Albumin [place] ([facility]) albumin/globulin ratio Albumin/globu navin Ratio [place] ([facility]) bilirubin,total 0.4 mg/dL 0.2-1.0 Bilirubin,total AT[facility] NA ([facility]) ID Date Data Source [id number] 11/09/2020 01:35:00 PM EST [place] ([facility]) Name Value Range Interpretation Code Description Data Ivelisse rce(s) Supporting Document(s) white blood count 4.9 10 4.0-10.0 White Blood Count [place] ([facility]) hemoglobin 13.2 g/dL 13.5-17.5 Below low normal Hemoglobin [place] ( [facility]) red blood count 4.24 10 4.30-6.10 Below low normal Red Blood Coun t [place] ([facility]) mean corpuscular volume 95.5 fL 80.0-96.0 Mean Corpusc ular Volume [place] ([facility]) hematocrit 40.5 % 42.0-52.0 Below low normal Hematocrit [place] ( [facility]) mean corpuscular HGB conc 32.6 g/dL 32.0-36.5 Mean Corpu scular HGB Conc [place] ([facility]) mean corpuscular hemoglobin 31.1 pg 27.0-33.0 Mean Cor puscular Hemoglobin [place] ([facility]) red cell distribution width 12.8 % 11.5-14.5 Red Cell Distribution Width [place] ([facility]) neutrophils % 57.7 % 36.0-66.0 Neutrophils % [place] ( [facility]) platelet count, automated 251 10 150-450 Platelet C ount, Automated [place] ([facility]) mono % 11.0 % 2.0-8.0 Above high normal [place] % [facility] ([facility]) baso % 0.6 % 0.0-1.0 Baso % [facility] ([facility]) eos % 0.6 % 0.0-3.0 Eos % [facility] ([facility]) lymph % 29.7 % 24.0-44.0 Lymph % [facility] ([facility]) neutrophils # 2.8 10 1.5-8.5 Neutrophils # [place] ( [facility]) nucleated red blood cell % 0.0 % 0-0 Nucleated Red Blood Cell % [facility] ([facility]) immature granulocyte % 0.4 % 0-3.0 Immature Gran ulocyte % [facility] ([facility]) eos # 0.0 10 0.0-0.5 Eos # [place] ([facility]) lymph # 1.5 10 1.5-5.0 Lymph # [place] ([facility]) mono # 0.5 10 0.0-0.8 [place] # [facility] ([facility]) baso # 0.0 10 0.0-0.2 Baso # [facility] ([facility]) ID Date Data Source [id number] 11/09/2020 01:35:00 PM EST [place] ([facility]) Name Value Range Interpretation Code Description Data Ivelisse rce(s) Supporting Document(s) thyroid stimulating hormone 1.040 uIU/mL 0.358-3.740 Thyroid Stimulating Hormone [place] ([facility]) ID Date Data Source [id number] 11/09/2020 01:35:00 PM EST [place] ([facility]) Name Value Range Interpretation Code Description Data Ivelisse rce(s) Supporting Document(s) HDL cholesterol 51 mg/dL >40 HDL Cholesterol ATHE NA ([facility]) cholesterol level 155 mg/dL <200 Cholesterol Level [place] ([facility]) triglycerides level 56 mg/dL <150 Triglycerides Le escobar [place] ([facility]) cholesterol risk ratio <5 Cholesterol R isk Ratio [place] ([facility]) non-HDL-C 104 mg/dL Non-hdl-c [place] ([facility]) Cholesterol in LDL [Mass/volume] in Serum or Plasma 93 mg/dL <1 00 LDL Cholesterol [place] ([facility]) ID Date Data Source [id number] 11/09/2020 01:35:00 PM EST [place] ([facility]) Name Value Range Interpretation Code Description Data Ivelisse rce(s) Supporting Document(s) glucose, fasting 84 mg/dL 70-100 Glucose, Fasting AT [facility] ([facility]) blood urea nitrogen 12 mg/dL 7-18 Blood Urea Nitro gen [place] ([facility]) glomerular filtration rate > 60.0 >56 Glomerula r Filtration Rate [place] ([facility]) creatinine for GFR 1.09 mg/dL 0.70-1.30 Creatinine for GF R [place] ([facility]) sodium level 132 mEq/L 136-145 Below low normal Sodium Level [facility] ([facility]) chloride level 96 mEq/L 98-107 Below low normal Chloride Level [place] ([facility]) carbon dioxide level 33 mEq/L 21-32 Above high normal Carbon D ioxide Level [place] ([facility]) potassium serum 5.0 mEq/L 3.5-5.1 Potassium Serum [facility] ([facility]) AST/SGOT 13 U/L 7-37 AST/SGOT [place] ([facility]) calcium level 8.9 mg/dL 8.5-10.1 Calcium Level [place] ( [facility]) anion gap 3 mEq/L 8-16 Below low normal Anion Gap [place] ( [facility]) ALT/SGPT 12 U/L 12-78 ALT/SGPT [place] ([facility]) total protein 7.5 gm/dL 6.4-8.2 Total Protein [place] ( [facility]) bilirubin,total 0.4 mg/dL 0.2-1.0 Bilirubin,total [facility] ([facility]) alkaline phosphatase 50 U/L 45-117 Alkaline Phosph atase [place] ([facility]) albumin 3.5 gm/dL 3.2-5.2 Albumin [place] ([facility]) albumin/globulin ratio Albumin/globu navin Ratio [facility] ([facility]) ID Date Data Source [id number] 11/09/2020 01:35:00 PM EST [place] ([facility]) Name Value Range Interpretation Code Description Data Ivelisse rce(s) Supporting Document(s) red blood count 4.24 10 4.30-6.10 Below low normal Red Blood Coun t [place] ([facility]) white blood count 4.9 10 4.0-10.0 White Blood Count [place] ([facility]) hematocrit 40.5 % 42.0-52.0 Below low normal Hematocrit [place] ( [facility]) mean corpuscular volume 95.5 fL 80.0-96.0 Mean Corpusc ular Volume [place] ([facility]) hemoglobin 13.2 g/dL 13.5-17.5 Below low normal Hemoglobin [place] ( [facility]) mean corpuscular HGB conc 32.6 g/dL 32.0-36.5 Mean Corpu scular HGB Conc [place] ([facility]) mean corpuscular hemoglobin 31.1 pg 27.0-33.0 Mean Cor puscular Hemoglobin [place] ([facility]) red cell distribution width 12.8 % 11.5-14.5 Red Cell Distribution Width [place] ([facility]) platelet count, automated 251 10 150-450 Platelet C ount, Automated [place] ([facility]) mono % 11.0 % 2.0-8.0 Above high normal [place] % [place] ([facility]) lymph % 29.7 % 24.0-44.0 Lymph % [place] ([facility]) neutrophils % 57.7 % 36.0-66.0 Neutrophils % [place] ( [facility]) baso % 0.6 % 0.0-1.0 Baso % [place] ([facility]) eos % 0.6 % 0.0-3.0 Eos % [place] ([facility]) immature granulocyte % 0.4 % 0-3.0 Immature Gran ulocyte % [place] ([facility]) neutrophils # 2.8 10 1.5-8.5 Neutrophils # [place] ( [facility]) mono # 0.5 10 0.0-0.8 [place] # [place] ([facility]) nucleated red blood cell % 0.0 % 0-0 Nucleated Red Blood Cell % [place] ([facility]) lymph # 1.5 10 1.5-5.0 Lymph # [place] ([facility]) baso # 0.0 10 0.0-0.2 Baso # [place] ([facility]) eos # 0.0 10 0.0-0.5 Eos # [place] ([facility]) ID Date Data Source [id number] 07/08/2020 02:52:43 PM EDT [facility] Measurements & CalculationsHeight: 75 inches (6 [...] barriers: nonePatient's Language used in visit: YesLanguage: Estonian Pain AssessmentPain ScaleNumeric Rating Scale: 8 / [...] during this visit, including review of any ansm-rrp-tyiqewx medications, herbal therapies, and/or supplements.Allergy ReviewAllergy List [...] GoodAssessment & Plan Problems:Assessed:Hip pain, left (ICD-719.45) (DQB88-D58.552) Assessment: Instructions: Refer back to Ortho.We will [...] Allergies (updated 05/07/2020) Orders:FluLaval Quadrivalent, preservative free [CPT-07119] 75372 - Immo Admin (over 19 yrs), 1st Vaccine [CPT-33810] Adult - Ofc Vst, EST, Level III [CPT-90744] Orthopaedics Consult [CPT-92400] Adult Questionnaire1) Does the patient have a [...] Syringe 0.5 MLMfr / Lot# / Exp.Date: Musistic / 94H24 1Amt. Given / Route / Site: 0.5 mL / IM / Left DeltoidNDC / CVX: [id number] / 150Administered Date: 07/08/2020 15:53VFC Eligibility: Not VFC EligibleVIS Date: 05/08/2019VIS Given / VIS Given On: Yes / 07/08/2020Comments: Administered by: Dayanna Rutherford LPN Name Value Range Interpretation Code Description Data Ivelisse rce(s) Supporting Document(s) Procedure Social History No Information Vital Signs ID Date Data Source UNK Name Value Range Interpretation Code Description Data Source(s) Heart rate 80 /min 80 /min [facility] ([facility], ) Respiratory rate 16 /min 16 /min [facility] ( [facility], ) Systolic blood pressure 118 mm[Hg] 118 mm[Hg] M [place] ([facility], ) Diastolic blood pressure 80 mm[Hg] 80 mm[Hg] [facility] ([facility], ) Body mass index (BMI) [Ratio] 26.1 kg/m2 26.1 k g/m2 [place] ([facility]) Systolic blood pressure 115 mm[Hg] 115 mm[Hg] A [place] ([facility]) Body weight 3346 [oz_av] 3346 [oz_av] [place] ([facility]) Diastolic blood pressure 70 mm[Hg] 70 mm[Hg] [place] ([facility]) Body height 75 [in_i] 75 [in_i] [place] ([facility]) Systolic blood pressure 124 mm[Hg] 124 mm[Hg] M ED[place] ([facility], ) Diastolic blood pressure 80 mm[Hg] 80 mm[Hg] [facility] ([facility], ) Heart rate 80 /min 80 /min [facility] ([facility], ) Respiratory rate 16 /min 16 /min [facility] ( [facility], ) Diastolic blood pressure 62 mm[Hg] 62 mm[Hg] [place] ([facility]) Body height 75 [in_i] 75 [in_i] [place] ([facility]) Diastolic blood pressure 62 mm[Hg] 62 mm[Hg] [place] ([facility]) Body height 75 [in_i] 75 [in_i] [place] ([facility]) Body mass index (BMI) [Ratio] 27.4 kg/m2 27.4 k g/m2 [place] ([facility]) Systolic blood pressure 113 mm[Hg] 113 mm[Hg] [facility] Body weight 3504 [oz_av] 3504 [oz_av] [place] ([facility]) Body mass index (BMI) [Ratio] 27.4 kg/m2 27.4 k g/m2 [place] ([facility]) Systolic blood pressure 113 mm[Hg] 113 mm[Hg] [facility] Body weight 3504 [oz_av] 3504 [oz_av] [place] ([facility]) Body height 75 [in_i] 75 [in_i] [place] ([facility]) Diastolic blood pressure 65 mm[Hg] 65 mm[Hg] [place] ([facility]) Body mass index (BMI) [Ratio] 29.1 kg/m2 29.1 k g/m2 [place] ([facility]) Systolic blood pressure 103 mm[Hg] 103 mm[Hg] [facility] Body weight 3728 [oz_av] 3728 [oz_av] [place] ([facility]) Body mass index (BMI) [Ratio] 29.1 kg/m2 29.1 k g/m2 [place] ([facility]) Systolic blood pressure 103 mm[Hg] 103 mm[Hg] [facility] Body weight 3728 [oz_av] 3728 [oz_av] [place] ([facility]) Diastolic blood pressure 65 mm[Hg] 65 mm[Hg] [place] ([facility]) Body height 75 [in_i] 75 [in_i] [place] ([facility]) Diastolic blood pressure 65 mm[Hg] 65 mm[Hg] [place] ([facility]) Body height 75 [in_i] 75 [in_i] [place] ([facility]) Body mass index (BMI) [Ratio] 29.1 kg/m2 29.1 k g/m2 [place] ([facility]) Systolic blood pressure 103 mm[Hg] 103 mm[Hg] A [place] ([facility]) Body weight 3728 [oz_av] 3728 [oz_av] [place] ([facility]) Diastolic blood pressure 58 mm[Hg] 58 mm[Hg] [place] ([facility]) Body height 75 [in_i] 75 [in_i] [place] ([facility]) Body mass index (BMI) [Ratio] 26.8 kg/m2 26.8 k g/m2 [place] ([facility]) Systolic blood pressure 115 mm[Hg] 115 mm[Hg] [facility] Body weight 3432 [oz_av] 3432 [oz_av] [place] ([facility]) Diastolic blood pressure 58 mm[Hg] 58 mm[Hg] [place] ([facility]) Body height 75 [in_i] 75 [in_i] [place] ([facility]) Body mass index (BMI) [Ratio] 26.8 kg/m2 26.8 k g/m2 [place] ([facility]) Systolic blood pressure 115 mm[Hg] 115 mm[Hg] [facility] Body weight 3432 [oz_av] 3432 [oz_av] [place] ([facility]) Diastolic blood pressure 58 mm[Hg] 58 mm[Hg] [place] ([facility]) Body height 75 [in_i] 75 [in_i] [place] ([facility]) Body mass index (BMI) [Ratio] 26.8 kg/m2 26.8 k g/m2 [place] ([facility]) Systolic blood pressure 115 mm[Hg] 115 mm[Hg] A [place] ([facility]) Body weight 3432 [oz_av] 3432 [oz_av] [place] ([facility]) Diastolic blood pressure 58 mm[Hg] 58 mm[Hg] [place] ([facility]) Body height 75 [in_i] 75 [in_i] [place] ([facility]) Body mass index (BMI) [Ratio] 26.8 kg/m2 26.8 k g/m2 [place] ([facility]) Systolic blood pressure 115 mm[Hg] 115 mm[Hg] A [place] ([facility]) Body weight 3432 [oz_av] 3432 [oz_av] [place] ([facility]) Diastolic blood pressure 56 mm[Hg] 56 mm[Hg] [place] ([facility]) Body height 75 [in_i] 75 [in_i] [place] ([facility]) Body mass index (BMI) [Ratio] 27.86 kg/m2 27.86 kg/m2 [place] ([facility]) Systolic blood pressure 105 mm[Hg] 105 mm[Hg] A [place] ([facility]) Body weight 3554.08 [oz_av] 3554.08 [oz_av] ATH [place] ([facility]) Diastolic blood pressure 56 mm[Hg] 56 mm[Hg] [place] ([facility]) Body height 75 [in_i] 75 [in_i] [place] ([facility]) Body mass index (BMI) [Ratio] 27.86 kg/m2 27.86 kg/m2 [place] ([facility]) Systolic blood pressure 105 mm[Hg] 105 mm[Hg] A [place] ([facility]) Body weight 3554.08 [oz_av] 3554.08 [oz_av] ATH [place] ([facility]) Diastolic blood pressure 56 mm[Hg] 56 mm[Hg] [place] ([facility]) Body height 75 [in_i] 75 [in_i] [place] ([facility]) Body mass index (BMI) [Ratio] 27.86 kg/m2 27.86 kg/m2 [place] ([facility]) Systolic blood pressure 105 mm[Hg] 105 mm[Hg] A [place] ([facility]) Body weight 3554.08 [oz_av] 3554.08 [oz_av] ATH [place] ([facility]) Heart rate 76 /min 76 /min [facility] ([facility], ) Systolic blood pressure 110 mm[Hg] 110 mm[Hg] M [place] ([facility], ) Diastolic blood pressure 80 mm[Hg] 80 mm[Hg] [facility] ([facility], ) Respiratory rate 16 /min 16 /min [facility] ( [facility], ) Patient Treatment Plan of Care Planned Activity Planned Date Details Description Data Source (s) cefdinir 300 MG Oral Capsule [place] ([facility]) celecoxib 200 MG Oral Capsule [place] ([facility]) cefdinir 300 MG Oral Capsule [place] ([facility]) cefdinir 300 MG Oral Capsule [place] ([facility]) cefdinir 300 MG Oral Capsule [place] ([facility])
[2021-07-22 18:50] VITALS: BP 110/65
== END 2021-07-22 19:08 | disposition home or self-care (01) ==
LOC: M ED 16:15
DX: S60.454A Superficial foreign body of right ring finger, initial encounter (principal); W45.8XXA Other foreign body or object entering through skin, initial encounter; Y92.099 Unspecified place in other non-institutional residence as the place of occurrence of the external cause; Y93.E5 Activity, floor mopping and cleaning; Y99.9 Unspecified external cause status; J45.909 Unspecified asthma, uncomplicated; J44.9 Chronic obstructive pulmonary disease, unspecified; Z87.820 Personal history of traumatic brain injury; Z79.899 Other long term (current) drug therapy

== ENCOUNTER 2022-02-22 17:19 | Emergency (ER) | payer MEDICARE, MEDICAID ==
[~2022-02-22] VITALS: Ht 190.5 cm; Wt 104.2 kg
[~2022-02-22 17:19] MED LIST changes: +CEPH500C PO; -HALO5TA; +HALO5TAB33
[2022-02-22 17:22] VITALS: BP 134/65
[2022-02-22] MEDS ORDERED: CETI-24 (17:40)
[2022-02-22 18:32] LABS: HEMATOCRIT 40.3 % (42.0-52.0); HEMOGLOBIN 13.9 g/dl (13.5-17.5); MEAN CORPUSCULAR HEMOGLOBIN 32.7 pg (27.0-33.0); MEAN CORPUSCULAR HGB CONC 34.5 g/dl (32.0-36.5); MEAN CORPUSCULAR VOLUME 94.8 fl (80.0-96.0); PLATELET COUNT, AUTOMATED 218 10^3/uL (150-450); RED BLOOD COUNT 4.25 10^6/uL (4.30-6.10); WHITE BLOOD COUNT 5.5 10^3/uL (4.0-10.0)
[2022-02-22 18:46] LABS: INR 0.95; PROTHROMBIN TIME 13.1 SECONDS (12.7-14.5)
[2022-02-22 19:00] LABS: ALBUMIN 3.5 GM/DL (3.2-5.2); ALT/SGPT 9 U/L (12-78); BILIRUBIN,TOTAL 0.5 MG/DL (0.2-1.0); BLOOD UREA NITROGEN 11 MG/DL (7-18); CALCIUM LEVEL 8.4 MG/DL (8.5-10.1); CARBON DIOXIDE LEVEL 31 MEQ/L (21-32); CHLORIDE LEVEL 97 MEQ/L (98-107); CREATININE FOR GFR 1.13 MG/DL (0.70-1.30); GLOMERULAR FILTRATION RATE > 60.0 (>56); GLUCOSE, FASTING 77 MG/DL (70-100); POTASSIUM SERUM 4.8 MEQ/L (3.5-5.1); RHEUMATOID FACTOR QUANT < 10.0 IU/ML (<15.0); SODIUM LEVEL 128 MEQ/L (136-145); TOTAL PROTEIN 7.5 GM/DL (6.4-8.2)
[2022-02-22 19:08] LABS: ATYPICAL LYMPH 4 % (0-5); BASOPHILS 2 % (0-1); EOSINOPHILS 3 % (0-3); LYMPHOCYTES 33 % (16-44); MONOCYTES 12 % (0-5); NEUTROPHILS 45 % (28-66); PLATELET ESTIMATE NORMAL (NORMAL)
[2022-02-22 19:15] LABS: ERYTHROCYTE SEDIMENTATION RATE 8 mm/hr (0-20)
[2022-02-24 11:09] LABS: ANTINUCLEAR ANTIBODIES DIRECT Negative (Negative)
== END 2022-02-22 19:12 | disposition home or self-care (01) ==
LOC: M ED 17:19
DX: R21 Rash and other nonspecific skin eruption (principal); E87.1 Hypo-osmolality and hyponatremia; J44.9 Chronic obstructive pulmonary disease, unspecified; F17.200 Nicotine dependence, unspecified, uncomplicated; Z79.899 Other long term (current) drug therapy

== ENCOUNTER 2022-06-19 10:12 | Emergency (ER) | payer MEDICARE, MEDICAID ==
[~2022-06-19] VITALS: Ht 193 cm; Wt 97.3 kg
[~2022-06-19 10:12] MED LIST changes: +CETI-24
[2022-06-19 10:20] VITALS: BP 166/79
== END 2022-06-19 12:02 | disposition home or self-care (01) ==
LOC: M ED 10:12 → EDBD 10:12 → M ED 12:02
DX: T16.2XXA Foreign body in left ear, initial encounter (principal); H61.92 Disorder of left external ear, unspecified; J45.909 Unspecified asthma, uncomplicated; F32.9 Major depressive disorder, single episode, unspecified; F17.200 Nicotine dependence, unspecified, uncomplicated; Z79.899 Other long term (current) drug therapy

== ENCOUNTER → 2022-06-20 | Outpatient (REF) | payer MEDICAID, MEDICARE ==
[2022-06-21 20:31] LABS: GC DNA AMPLIFICATION NEGATIVE (NEGATIVE)
== END ==
LOC: M LAB REF 16:20
PROVIDERS: ATTEND Family Medicine Addiction Medicine
DX: Z11.3 Encounter for screening for infections with a predominantly sexual mode of transmission (principal)

== ENCOUNTER 2022-09-22 10:30 | Emergency (ER) | payer MEDICARE, MEDICAID ==
[~2022-09-22] VITALS: Ht 193 cm; Wt 102.5 kg
[2022-09-22 17:55] VITALS: BP 125/61
== END 2022-09-22 18:05 | disposition home or self-care (01) ==
LOC: M ED 17:10
DX: L72.0 Epidermal cyst (principal); J45.909 Unspecified asthma, uncomplicated; Z87.820 Personal history of traumatic brain injury; F17.200 Nicotine dependence, unspecified, uncomplicated; Z79.899 Other long term (current) drug therapy

== ENCOUNTER 2023-05-01 09:34 | Day surgery (SDC) | payer OTHER, MEDICAID ==
[~2023-05-01] VITALS: Ht 193 cm; Wt 90.3 kg
[~2023-05-01 09:34] MED LIST changes: +ACETYLCHOLINE OPHTH SOLN 1% 2ML (MIOCHOL-E) As Ordered ONE; +AIMO70IN2 SC; +ALBU8.5H INH; -BUSP10TA; +CEFUROXIME 1MG/0.1ML INTRACAMERAL INJ As Ordered ONE; +CETI-24 PO; +CYCLOPENTOLATE 1% OPHTH SOLN 2ML BTL OS SCH; -HALO5TAB33; +HALO5TAB33 PO; +LIDOCAINE 1% SDV 5ML VIAL As Ordered ONE; +MELO15TA28 PO; +OFLOXACIN 0.3 % (OCUFLOX) OPTH SOL 5ML OS SCH; +PHENYLEPHRINE 2.5% OPHTH SOL 2ML OS SCH; +PROPARACAINE 0.5% OPHTH SOL 15ML OS ONE; +SUMA100T2 PO; +TOPI-254 PO; -TRAZ1TAB14; +TRAZ1TAB14 PO; +TROPICAMIDE 1% OPHTH SOLN 15ML OS SCH
[2023-05-01] MEDS ORDERED: fentaNYL 100 MCG/2 ML INJECTION As Ordered ONE (10:10)
[2023-05-01] MEDS ORDERED: MIDAZOLAM INJ 2MG/2ML VIAL As Ordered ONE (10:10)
[2023-05-01] MEDS ORDERED: BSS IRR 500ML/OMIDRIA 4ML IRR BAG (OR ONLY) As Ordered ONE (10:38)
[2023-05-01 12:59] VITALS: BP 112/60; TEMP 97.5; O2SAT 99
== END 2023-05-01 16:18 | disposition home or self-care (01) ==
LOC: M SDC 09:34
PROVIDERS: ATTEND Ophthalmology
DX: H25.12 Age-related nuclear cataract, left eye (principal); J44.9 Chronic obstructive pulmonary disease, unspecified; F41.9 Anxiety disorder, unspecified; F32.A Depression, unspecified; Z79.899 Other long term (current) drug therapy; F17.210 Nicotine dependence, cigarettes, uncomplicated; F12.10 Cannabis abuse, uncomplicated
CPT/HCPCS: 66984; J0697; J1097; J2250; J3010; V2632

== ENCOUNTER 2023-06-06 21:43 | Inpatient (IN) | payer OTHER, MEDICAID ==
[~2023-06-06] VITALS: Ht 182.9 cm; Wt 87.7 kg
[~2023-06-06 21:43] MED LIST changes: -ACETYLCHOLINE OPHTH SOLN 1% 2ML (MIOCHOL-E) As Ordered ONE; -CEFUROXIME 1MG/0.1ML INTRACAMERAL INJ As Ordered ONE; +CELE0.09 PO; -CELE1CAP9 PO; -CYCLOPENTOLATE 1% OPHTH SOLN 2ML BTL OS SCH; -LIDOCAINE 1% SDV 5ML VIAL As Ordered ONE; -OFLOXACIN 0.3 % (OCUFLOX) OPTH SOL 5ML OS SCH; -PHENYLEPHRINE 2.5% OPHTH SOL 2ML OS SCH; -PROPARACAINE 0.5% OPHTH SOL 15ML OS ONE; -TROPICAMIDE 1% OPHTH SOLN 15ML OS SCH
[2023-06-06 22:43] LABS: VENOUS BASE EXCESS 1.4 (-2.0-2.0); VENOUS HCO3 27.2 MMOL/L (23.0-27.0); VENOUS O2 SATURATION 51.4 % (60.0-80.0); VENOUS PARTIAL PRESSURE O2 26.5 mmHg (30.0-50.0); VENOUS PH 7.381 UNITS (7.330-7.430); VENOUS STANDARD HCO3 24.5 MMOL/L; VENOUS TOTAL CO2 28.7 MMOL/L (24.0-28.0)
[2023-06-06 23:05] LABS: BASO % 0.3 % (0.0-1.0); HEMATOCRIT 42.3 % (42.0-52.0); HEMOGLOBIN 14.7 g/dl (13.5-17.5); LYMPH # 0.5 10^3/uL (1.5-5.0); LYMPH % 3.5 % (24.0-44.0); MEAN CORPUSCULAR HEMOGLOBIN 32.2 pg (27.0-33.0); MEAN CORPUSCULAR HGB CONC 34.8 g/dl (32.0-36.5); MEAN CORPUSCULAR VOLUME 92.8 fl (80.0-96.0); MONO % 6.6 % (2.0-8.0); NEUTROPHILS # 12.9 10^3/uL (1.5-8.5); PLATELET COUNT, AUTOMATED 210 10^3/uL (150-450); RED BLOOD COUNT 4.56 10^6/uL (4.30-6.10); WHITE BLOOD COUNT 14.7 10^3/uL (4.0-10.0)
[2023-06-06] MEDS ORDERED: cefTRIAXone SOD 2 GM in D5W MINI-BAG PLUS 50 ML IV ONE (23:15)
[2023-06-06] MEDS ORDERED: NS 1,000 ML IV ONE (23:15)
[2023-06-06] MEDS ORDERED: ACETAMINOPHEN TAB 650MG DOSE (2X325MG) PO ONE (23:15)
[2023-06-06 23:17] LABS: CK-MB VALUE MASS 5.9 NG/ML (<3.6)
[2023-06-06 23:18] LABS: AMYLASE 38 U/L (30-118)
[2023-06-06 23:19] LABS: ALBUMIN 3.5 G/DL (3.2-5.2); ALKALINE PHOSPHATASE 65 U/L (46-116); ALT/SGPT 17 U/L (7.0-40); AST/SGOT 71 U/L (<34); BILIRUBIN,DIRECT 0.5 MG/DL (<0.4); BILIRUBIN,TOTAL 0.9 MG/DL (0.3-1.2); BLOOD UREA NITROGEN 22 MG/DL (9-23); CALCIUM LEVEL 9.2 MG/DL (8.5-10.1); CARBON DIOXIDE LEVEL 28 MMOL/L (20-31); CHLORIDE LEVEL 95 MMOL/L (98-107); CREATININE FOR GFR 1.15 MG/DL (0.70-1.30); GLOMERULAR FILTRATION RATE > 60.0 (>56); GLUCOSE, FASTING 91 MG/DL (60-100); INR 1.2; POTASSIUM SERUM 3.8 MMOL/L (3.5-5.1); PROTHROMBIN TIME 14.9 SECONDS (12.5-14.5); SODIUM LEVEL 131 MMOL/L (136-145); TOTAL PROTEIN 8.2 G/DL (5.7-8.2)
[2023-06-06 23:20] LABS: PARTIAL THROMBOPLASTIN TIME 27.7 SECONDS (24.8-34.2)
[2023-06-06 23:26] LABS: PROCALCITONIN 0.68 ng/ml
[2023-06-06 23:46] LABS: CPK CREATINE PHOSPHOKINASE 2709 U/L (46-171); MB/CK RELATIVE INDEX 0.21 (< OR =4)
[2023-06-07] MEDS ORDERED: MOM 30ML SUSPENSION UDC PO PRN (01:15)
[2023-06-07] MEDS ORDERED: ALBUTEROL SULFATE 2.5MG/0.5ML INH NEB SOLN INH PRN (01:20)
[2023-06-07] MEDS: IPRATROPIUM 0.5MG/ALBUTEROL 2.5MG INH SOL UD 3ML (DUONEB) INH SCH ×5 (02:01→19:43)
[2023-06-07] MEDS ORDERED: CETI-24 PO (02:43)
[2023-06-07] MEDS ORDERED: DEPA1TAB3 PO (02:43)
[2023-06-07] MEDS ORDERED: HOME MED LIST COMPLETE! XX SCH (02:45)
[2023-06-07] MEDS: ACETAMINOPHEN TAB 650MG DOSE (2X325MG) PO PRN ×2 (04:08→09:44)
[2023-06-07 04:19] LABS: CK-MB VALUE MASS 4.8 NG/ML (<3.6)
[2023-06-07 04:37] LABS: MB/CK RELATIVE INDEX 0.13 (< OR =4)
[2023-06-07] MEDS: NS 1,000 ML IV SCH (05:06)
[2023-06-07] MEDS ORDERED: ACETAMINOPHEN *IV* 1,000 MG in IV 1 EA IV ONE (05:30)
[2023-06-07] MEDS ORDERED: NS 500 ML IV ONE (05:30)
[2023-06-07 06:40] VITALS: BP 106/73; TEMP 104.5; O2SAT 93
[2023-06-07 07:00] VITALS: TEMP 102.4
[2023-06-07] MEDS ORDERED: ALBUTEROL 90 MCG/ACT 8GM HFA INHALER INH PRN (07:15)
[2023-06-07] MEDS ORDERED: SUMAtriptan SUCCINATE 25 MG TAB PO PRN (07:15)
[2023-06-07 08:37] LABS: BASO % 0.5 % (0.0-1.0); HEMATOCRIT 38.8 % (42.0-52.0); HEMOGLOBIN 12.8 g/dl (13.5-17.5); LYMPH # 0.6 10^3/uL (1.5-5.0); LYMPH % 6.7 % (24.0-44.0); MEAN CORPUSCULAR HEMOGLOBIN 31.7 pg (27.0-33.0); MONO # 0.6 10^3/uL (0.0-0.8); MONO % 7.4 % (2.0-8.0); NEUTROPHILS # 7.3 10^3/uL (1.5-8.5); NEUTROPHILS % 84.4 % (36.0-66.0); PLATELET COUNT, AUTOMATED 164 10^3/uL (150-450); RED BLOOD COUNT 4.04 10^6/uL (4.30-6.10); WHITE BLOOD COUNT 8.6 10^3/uL (4.0-10.0)
[2023-06-07] MEDS: busPIRone 10 MG TAB PO SCH ×2 (08:45→21:29)
[2023-06-07] MEDS: DOXYCYCLINE HYCLATE 100MG TABLET PO SCH ×2 (08:45→21:30)
[2023-06-07] MEDS: DIVALPROEX 500 MG TAB PO SCH ×2 (08:45→21:29)
[2023-06-07] MEDS: ENOXAPARIN 40MG/0.4ML SYRINGE (J1650 PER 10MG) SC SCH (08:46)
[2023-06-07 09:00] VITALS: TEMP 99.2
[2023-06-07 09:01] LABS: BLOOD UREA NITROGEN 23 MG/DL (9-23); CALCIUM LEVEL 7.8 MG/DL (8.5-10.1); CARBON DIOXIDE LEVEL 27 MMOL/L (20-31); CHLORIDE LEVEL 100 MMOL/L (98-107); CREATININE FOR GFR 1.13 MG/DL (0.70-1.30); GLOMERULAR FILTRATION RATE > 60.0 (>56); GLUCOSE, FASTING 98 MG/DL (60-100); MAGNESIUM LEVEL 1.6 MG/DL (1.8-2.4); POTASSIUM SERUM 3.6 MMOL/L (3.5-5.1); SODIUM LEVEL 133 MMOL/L (136-145)
[2023-06-07 09:11] LABS: CPK CREATINE PHOSPHOKINASE 4096 U/L (46-171)
[2023-06-07 14:00] VITALS: BP 107/70; TEMP 98.2; O2SAT 92
[2023-06-07] MEDS ORDERED: DEXTROMETHORPHAN 60MG/10ML SUSP 90ML BTL(DELSYM) PO PRN (20:05)
[2023-06-07 20:06] VITALS: BP 97/56; TEMP 100.9; O2SAT 95
[2023-06-07] MEDS: CETIRIZINE (ZyrTEC) 10 MG TAB PO SCH (21:29)
[2023-06-07] MEDS: guaiFENesin ER 600 MG TAB PO SCH (21:29)
[2023-06-07] MEDS: traZODone 100 MG TAB PO SCH (21:29)
[2023-06-07] MEDS: cefTRIAXone SOD 1 GM in D5W MINI-BAG PLUS 50 ML IV SCH (22:23)
[2023-06-08 00:15] VITALS: TEMP 98.7
[2023-06-08] MEDS: IPRATROPIUM 0.5MG/ALBUTEROL 2.5MG INH SOL UD 3ML (DUONEB) INH SCH ×3 (00:44→14:15)
[2023-06-08 05:31] VITALS: BP 114/74; TEMP 97.5; O2SAT 92
[2023-06-08] MEDS: NS 1,000 ML IV SCH ×3 (05:57→18:38)
[2023-06-08 06:12] LABS: HEMATOCRIT 33.7 % (42.0-52.0); HEMOGLOBIN 11.6 g/dl (13.5-17.5); MEAN CORPUSCULAR HGB CONC 34.4 g/dl (32.0-36.5); MEAN CORPUSCULAR VOLUME 93.1 fl (80.0-96.0); PLATELET COUNT, AUTOMATED 158 10^3/uL (150-450); RED BLOOD COUNT 3.62 10^6/uL (4.30-6.10); WHITE BLOOD COUNT 10.3 10^3/uL (4.0-10.0)
[2023-06-08 06:44] LABS: BLOOD UREA NITROGEN 18 MG/DL (9-23); CALCIUM LEVEL 7.8 MG/DL (8.5-10.1); CARBON DIOXIDE LEVEL 29 MMOL/L (20-31); CHLORIDE LEVEL 103 MMOL/L (98-107); CREATININE FOR GFR 0.86 MG/DL (0.70-1.30); GLOMERULAR FILTRATION RATE > 60.0 (>56); GLUCOSE, FASTING 122 MG/DL (60-100); MAGNESIUM LEVEL 1.7 MG/DL (1.8-2.4); POTASSIUM SERUM 3.2 MMOL/L (3.5-5.1); SODIUM LEVEL 138 MMOL/L (136-145)
[2023-06-08 06:52] LABS: ATYPICAL LYMPH 5 % (0-5); LYMPHOCYTES 5 % (16-44); NEUTROPHILS 79 % (28-66)
[2023-06-08 06:53] LABS: PLATELET ESTIMATE NORMAL (NORMAL)
[2023-06-08] MEDS ORDERED: MAGNESIUM OXIDE 400MG TAB (MAG-OX) PO ONE (08:00)
[2023-06-08] MEDS ORDERED: POTASSIUM CHLORIDE 10MEQ SR TABLET PO ONE (08:00)
[2023-06-08] MEDS: busPIRone 10 MG TAB PO SCH ×2 (09:06→20:07)
[2023-06-08] MEDS: guaiFENesin ER 600 MG TAB PO SCH ×2 (09:07→20:05)
[2023-06-08] MEDS: DOXYCYCLINE HYCLATE 100MG TABLET PO SCH ×2 (09:07→20:05)
[2023-06-08] MEDS: DIVALPROEX 500 MG TAB PO SCH ×2 (09:07→20:06)
[2023-06-08] MEDS: ENOXAPARIN 40MG/0.4ML SYRINGE (J1650 PER 10MG) SC SCH (09:08)
[2023-06-08] MEDS ORDERED: SODIUM CHLORIDE 0.9% 1000ML IV ONE (09:35)
[2023-06-08 14:00] VITALS: BP 106/63; TEMP 99; O2SAT 96
[2023-06-08] MEDS: ACETAMINOPHEN TAB 650MG DOSE (2X325MG) PO PRN (16:44)
[2023-06-08] MEDS: traZODone 100 MG TAB PO SCH (20:05)
[2023-06-08] MEDS: CETIRIZINE (ZyrTEC) 10 MG TAB PO SCH (20:06)
[2023-06-08 20:53] VITALS: BP 121/70; TEMP 98.6; O2SAT 93
[2023-06-08] MEDS: cefTRIAXone SOD 1 GM in D5W MINI-BAG PLUS 50 ML IV SCH (23:34)
[2023-06-09] MEDS: ACETAMINOPHEN TAB 650MG DOSE (2X325MG) PO PRN ×2 (03:27→08:37)
[2023-06-09 06:00] VITALS: BP 133/71; TEMP 98.4; O2SAT 95
[2023-06-09 07:43] LABS: HEMATOCRIT 30.2 % (42.0-52.0); HEMOGLOBIN 10.5 g/dl (13.5-17.5); MEAN CORPUSCULAR HEMOGLOBIN 32.5 pg (27.0-33.0); MEAN CORPUSCULAR HGB CONC 34.8 g/dl (32.0-36.5); MEAN CORPUSCULAR VOLUME 93.5 fl (80.0-96.0); PLATELET COUNT, AUTOMATED 156 10^3/uL (150-450); RED BLOOD COUNT 3.23 10^6/uL (4.30-6.10); WHITE BLOOD COUNT 8.9 10^3/uL (4.0-10.0)
[2023-06-09 07:49] LABS: MAGNESIUM LEVEL 1.5 MG/DL (1.8-2.4)
[2023-06-09 08:08] LABS: EOSINOPHILS 3 % (0-3); LYMPHOCYTES 6 % (16-44); MONOCYTES 8 % (0-5); NEUTROPHILS 81 % (28-66); PLATELET ESTIMATE NORMAL (NORMAL); POIKILOCYTOSIS 1+
[2023-06-09] MEDS: ENOXAPARIN 40MG/0.4ML SYRINGE (J1650 PER 10MG) SC SCH (08:34)
[2023-06-09] MEDS: DOXYCYCLINE HYCLATE 100MG TABLET PO SCH (08:35)
[2023-06-09] MEDS: guaiFENesin ER 600 MG TAB PO SCH (08:35)
[2023-06-09] MEDS: busPIRone 10 MG TAB PO SCH (08:36)
[2023-06-09] MEDS: DIVALPROEX 500 MG TAB PO SCH (08:37)
[2023-06-09] MEDS ORDERED: MAGNESIUM OXIDE 400MG TAB (MAG-OX) PO ONE (09:00)
[2023-06-09 09:49] LABS: BLOOD UREA NITROGEN 14 MG/DL (9-23); CALCIUM LEVEL 7.5 MG/DL (8.5-10.1); CARBON DIOXIDE LEVEL 26 MMOL/L (20-31); CHLORIDE LEVEL 105 MMOL/L (98-107); CREATININE FOR GFR 0.74 MG/DL (0.70-1.30); GLOMERULAR FILTRATION RATE > 60.0 (>56); GLUCOSE, FASTING 98 MG/DL (60-100); POTASSIUM SERUM 3.2 MMOL/L (3.5-5.1); SODIUM LEVEL 138 MMOL/L (136-145)
[2023-06-09 10:00] LABS: CPK CREATINE PHOSPHOKINASE 2580 U/L (46-171)
[2023-06-09] MEDS ORDERED: SODIUM CHLORIDE 0.9% 1000ML IV ONE (10:30)
[2023-06-09] MEDS ORDERED: POTASSIUM CHLORIDE 10MEQ SR TABLET PO ONE (11:00)
[2023-06-09] MEDS: NS 1,000 ML IV SCH (12:28)
== END 2023-06-09 13:50 | disposition left against medical advice (07) | DRG 871 ==
LOC: EDBD 21:43 → M ED 21:43 → M ED INP 06-07 01:11 → M MS5PR 06-07 04:32
PROVIDERS: ADMIT Internal Medicine; ATTEND Family Medicine
DX: A41.9 Sepsis, unspecified organism (principal); J18.9 Pneumonia, unspecified organism; E87.20 Acidosis, unspecified; M62.82 Rhabdomyolysis; J44.9 Chronic obstructive pulmonary disease, unspecified; E78.5 Hyperlipidemia, unspecified; J45.909 Unspecified asthma, uncomplicated; F17.210 Nicotine dependence, cigarettes, uncomplicated; G40.909 Epilepsy, unspecified, not intractable, without status epilepticus; F17.220 Nicotine dependence, chewing tobacco, uncomplicated; F41.9 Anxiety disorder, unspecified; F32.A Depression, unspecified; N18.2 Chronic kidney disease, stage 2 (mild); E66.9 Obesity, unspecified; F10.10 Alcohol abuse, uncomplicated; G43.909 Migraine, unspecified, not intractable, without status migrainosus; Z98.42 Cataract extraction status, left eye

== ENCOUNTER → 2023-06-29 | Outpatient (CLI) | payer OTHER, MEDICAID ==
[~2023-06-29] MED LIST changes: +AMOX500T PO; +DEPA1TAB3 PO
[2023-06-29 11:27] LABS: HEMATOCRIT 29.2 % (42.0-52.0); HEMOGLOBIN 9.7 g/dl (13.5-17.5); MEAN CORPUSCULAR HEMOGLOBIN 31.8 pg (27.0-33.0); MEAN CORPUSCULAR HGB CONC 33.2 g/dl (32.0-36.5); MEAN CORPUSCULAR VOLUME 95.7 fl (80.0-96.0); PLATELET COUNT, AUTOMATED 361 10^3/uL (150-450); RED BLOOD COUNT 3.05 10^6/uL (4.30-6.10); WHITE BLOOD COUNT 3.5 10^3/uL (4.0-10.0)
[2023-06-29 11:47] LABS: ATYPICAL LYMPH 1 % (0-5); BASOPHILS 1 % (0-1); EOSINOPHILS 1 % (0-3); LYMPHOCYTES 45 % (16-44); MONOCYTES 19 % (0-5); NEUTROPHILS 33 % (28-66)
[2023-06-29 11:48] LABS: PLATELET ESTIMATE NORMAL (NORMAL)
[2023-06-29 11:50] LABS: ANISOCYTOSIS 1+; MICROCYTOSIS 1+
[2023-06-29 11:51] LABS: HYPOCHROMASIA 1+
[2023-06-29 11:56] LABS: ALKALINE PHOSPHATASE 53 U/L (46-116); ALT/SGPT < 9 U/L (7.0-40); AST/SGOT 16 U/L (<34); BILIRUBIN,TOTAL 0.3 MG/DL (0.3-1.2); BLOOD UREA NITROGEN 12 MG/DL (9-23); CALCIUM LEVEL 7.9 MG/DL (8.5-10.1); CARBON DIOXIDE LEVEL 30 MMOL/L (20-31); CHLORIDE LEVEL 100 MMOL/L (98-107); CREATININE FOR GFR 1.19 MG/DL (0.70-1.30); GLOMERULAR FILTRATION RATE > 60.0 (>56); GLUCOSE, FASTING 95 MG/DL (60-100); POTASSIUM SERUM 4.7 MMOL/L (3.5-5.1); SODIUM LEVEL 132 MMOL/L (136-145); TOTAL PROTEIN 7.5 G/DL (5.7-8.2)
== END ==
LOC: M LAB 10:25
PROVIDERS: ATTEND Family Medicine Addiction Medicine
DX: D64.9 Anemia, unspecified (principal)

== ENCOUNTER → 2023-10-02 | Outpatient (REF) | payer MEDICARE, MEDICAID ==
[~2023-10-02] MED LIST changes: +TOPI-21 PO; -TOPI-254 PO
== END ==
LOC: M SFHCDERM 17:20
PROVIDERS: ATTEND Physician Assistant
DX: D22.9 Melanocytic nevi, unspecified (principal); Z79.899 Other long term (current) drug therapy; F17.210 Nicotine dependence, cigarettes, uncomplicated
CPT/HCPCS: 11102; 88305; G0463

== ENCOUNTER 2023-12-28 12:01 | Emergency (ER) | payer MEDICARE, MEDICAID ==
[~2023-12-28] VITALS: Ht 193 cm; Wt 87.1 kg
[2023-12-28] MEDS ORDERED: CLAR10CA3 PO (15:44)
[2023-12-28 15:49] LABS: RSV AMPLIFICATION NEGATIVE (NEGATIVE)
[2023-12-28] MEDS ORDERED: LEVO1TAB39 PO (15:54)
[2023-12-28 16:13] VITALS: BP 115/67; TEMP 98.2; O2SAT 98
== END 2023-12-28 16:14 | disposition home or self-care (01) ==
LOC: M ED 12:01
DX: J06.9 Acute upper respiratory infection, unspecified (principal); I10 Essential (primary) hypertension; F17.200 Nicotine dependence, unspecified, uncomplicated; Z79.899 Other long term (current) drug therapy

== ENCOUNTER 2024-01-10 23:56 | Emergency (ER) | payer MEDICARE, MEDICAID ==
[~2024-01-10] VITALS: Ht 193 cm; Wt 85.7 kg
[~2024-01-10 23:56] MED LIST changes: +CLAR10CA3 PO; +LEVO1TAB39 PO
[2024-01-11] MEDS: ACETAMINOPHEN TAB 650MG DOSE (2X325MG) PO ONE (02:53)
[2024-01-11 02:59] VITALS: BP 128/78; TEMP 98.8; O2SAT 98
== END 2024-01-11 03:02 | disposition home or self-care (01) ==
LOC: M ED 23:56
DX: S09.90XA Unspecified injury of head, initial encounter (principal); W01.0XXA Fall on same level from slipping, tripping and stumbling without subsequent striking against object, initial encounter; Y92.9 Unspecified place or not applicable; Y93.9 Activity, unspecified; Y99.9 Unspecified external cause status; I10 Essential (primary) hypertension; Z79.899 Other long term (current) drug therapy

== ENCOUNTER 2024-02-28 12:12 | Inpatient (IN) | payer MEDICARE, MEDICAID ==
[~2024-02-28] VITALS: Ht 190.5 cm; Wt 80.9 kg
[2024-02-28 13:52] LABS: ABG BASE EXCESS -3.3 (-2.0-2.0); ABG HCO3 19.6 MMOL/L (22.0-26.0); ABG O2 SATURATION 92.6 % (95.0-99.0); ABG PARTIAL PRESSURE CO2 29.4 mmHg (35.0-45.0); ABG PARTIAL PRESSURE O2 61.7 mmHg (75.0-100.0); ABG STANDARD HCO3 21.6 MMOL/L. (22.0-26.0); ABG TOTAL CO2 20.5 MMOL/L (22.0-29.0); ABG pH (ARTERIAL) 7.441 UNITS (7.350-7.450)
[2024-02-28] MEDS: NS 1,000 ML IV SCH (14:04)
[2024-02-28 14:16] LABS: HEMATOCRIT 41.3 % (42.0-52.0); HEMOGLOBIN 14.3 g/dl (13.5-17.5); MEAN CORPUSCULAR HGB CONC 34.6 g/dl (32.0-36.5); MEAN CORPUSCULAR VOLUME 95.4 fl (80.0-96.0); PLATELET COUNT, AUTOMATED 122 10^3/uL (150-450); RED BLOOD COUNT 4.33 10^6/uL (4.30-6.10); WHITE BLOOD COUNT 15.2 10^3/uL (4.0-10.0)
[2024-02-28 14:33] LABS: INR 1.15; PARTIAL THROMBOPLASTIN TIME 24.5 SECONDS (24.8-34.2); PROTHROMBIN TIME 14.3 SECONDS (12.5-14.5)
[2024-02-28 14:35] LABS: AMPHETAMINES LEVEL URINE NEGATIVE (NEGATIVE); BARBITURATES URINE NEGATIVE (NEGATIVE); BENZODIAZEPINES URINE NEGATIVE (NEGATIVE); COCAINE METABOLITE URINE NEGATIVE (NEGATIVE); METHADONE URINE NEGATIVE (NEGATIVE); OPIATES URINE NEGATIVE (NEGATIVE); PHENCYCLIDINE URINE NEGATIVE (NEGATIVE)
[2024-02-28 14:38] LABS: CANNABINOIDS URINE POSITIVE (NEGATIVE)
[2024-02-28 14:39] LABS: ETHYL ALCOHOL (ETHANOL) < 0.003 % (0.000-0.010); VALPROIC ACID (DEPAKOTE) 47.8 UG/ML (50.0-100.0)
[2024-02-28 14:41] LABS: ALBUMIN 3.1 G/DL (3.2-5.2); ALKALINE PHOSPHATASE 57 U/L (46-116); ALT/SGPT 41 U/L (7.0-40); AST/SGOT 272 U/L (<34); BILIRUBIN,DIRECT 0.5 MG/DL (<0.4); BILIRUBIN,TOTAL 1.1 MG/DL (0.3-1.2); BLOOD UREA NITROGEN 26 MG/DL (9-23); CALCIUM LEVEL 9.4 MG/DL (8.5-10.1); CARBON DIOXIDE LEVEL 23 MMOL/L (20-31); CHLORIDE LEVEL 104 MMOL/L (98-107); CK-MB VALUE MASS 28.9 NG/ML (<3.6); GLOMERULAR FILTRATION RATE 55.2 (>56); GLUCOSE, FASTING 104 MG/DL (60-100); POTASSIUM SERUM 3.2 MMOL/L (3.5-5.1); SODIUM LEVEL 135 MMOL/L (136-145); TOTAL PROTEIN 7.7 G/DL (5.7-8.2)
[2024-02-28 14:43] LABS: THYROID STIMULATING HORMONE 0.941 uIU/ML (0.55-4.78)
[2024-02-28] MEDS: POTASSIUM CHLORIDE 10MEQ SR TABLET PO ONE (15:05)
[2024-02-28 15:08] LABS: CPK CREATINE PHOSPHOKINASE 9302 U/L (46-171); MB/CK RELATIVE INDEX 0.31 (< OR =4)
[2024-02-28] MEDS ORDERED: ISOVUE-370 76% 100ML VIAL As Ordered ONE (15:11)
[2024-02-28 15:12] LABS: LYMPHOCYTES 2 % (16-44); METAMYELOCYTES 1 % (0-0); MONOCYTES 3 % (0-5); NEUTROPHILS 77 % (28-66)
[2024-02-28 15:14] LABS: PLATELET ESTIMATE DECREASED (NORMAL)
[2024-02-28 16:09] LABS: CK-MB VALUE MASS 24.9 NG/ML (<3.6); MB/CK RELATIVE INDEX 0.29 (< OR =4)
[2024-02-28] MEDS: KCL 10MEQ/100ML SWI (KRUN) 10 MEQ in IV 1 EA IV ONE (16:45)
[2024-02-28] MEDS: PIPERACILLIN/TAZOBACTAM SOD 4.5 GM in D5W MINI-BAG PLUS 50 ML IV ONE (16:45)
[2024-02-28] MEDS ORDERED: ALBUTEROL SULFATE 2.5MG/0.5ML INH NEB SOLN NEB PRN (19:00)
[2024-02-28] MEDS: ALBUTEROL SULFATE 2.5MG/0.5ML INH NEB SOLN NEB SCH (19:19)
[2024-02-28] MEDS: NS 1,000 ML IV ONE (19:30)
[2024-02-28] MEDS: ACETAMINOPHEN *IV* 1,000 MG in IV 1 EA IV ONE (19:55)
[2024-02-28 20:15] LABS: ABG BASE EXCESS -6.3 (-2.0-2.0); ABG HCO3 16.4 MMOL/L (22.0-26.0); ABG O2 SATURATION 91.8 % (95.0-99.0); ABG PARTIAL PRESSURE CO2 25.3 mmHg (35.0-45.0); ABG PARTIAL PRESSURE O2 63.2 mmHg (75.0-100.0); ABG STANDARD HCO3 19.2 MMOL/L. (22.0-26.0); ABG TOTAL CO2 17.2 MMOL/L (22.0-29.0); ABG pH (ARTERIAL) 7.429 UNITS (7.350-7.450)
[2024-02-28] MEDS: KCL 40MEQ in NS 1000ML 1,000 ML IV SCH (20:41)
[2024-02-28] MEDS: DOCUSATE SODIUM 100MG CAPSULE PO SCH (20:42)
[2024-02-28 20:50] LABS: MAGNESIUM LEVEL 1.8 MG/DL (1.8-2.4)
[2024-02-28 22:01] LABS: PROCALCITONIN 2.08 ng/ml
[2024-02-28] MEDS: PIPERACILLIN/TAZOBACTAM SOD 3.375 GM in D5W MINI-BAG PLUS 50 ML IV SCH (22:06)
[2024-02-28] MEDS: MAG SULF 1GM/100ML (MAG RUN) 1 GM in IV 1 EA IV ONE (22:06)
[2024-02-28 22:40] LABS: ABG BASE EXCESS -6.5 (-2.0-2.0); ABG HCO3 17.8 MMOL/L (22.0-26.0); ABG O2 SATURATION 98.7 % (95.0-99.0); ABG PARTIAL PRESSURE CO2 31.9 mmHg (35.0-45.0); ABG PARTIAL PRESSURE O2 130.3 mmHg (75.0-100.0); ABG STANDARD HCO3 19.2 MMOL/L. (22.0-26.0); ABG TOTAL CO2 18.8 MMOL/L (22.0-29.0); ABG pH (ARTERIAL) 7.365 UNITS (7.350-7.450)
[2024-02-28 23:58] VITALS: BP 104/66; TEMP 99.7; O2SAT 100
[2024-02-28 23:59] VITALS: O2SAT 99
[2024-02-29] VITALS (30 sets, daily range): BP systolic 93–119; BP diastolic 52–69; TEMP 96.9–97.7; O2SAT 83–100
[2024-02-29] MEDS: DOXYCYCLINE HYCLATE 100 MG in D5W MINI-BAG PLUS 100 ML IV SCH (01:20)
[2024-02-29] MEDS: IPRATROPIUM 0.02% SOLN 0.5MG 2.5ML NEB INH SCH (01:56)
[2024-02-29] MEDS: LEVALBUTEROL 1.25MG 0.5ML CONCENTRATE NEB INH SCH (01:56)
[2024-02-29 06:04] LABS: BASO % 0.2 % (0.0-1.0); HEMATOCRIT 36.1 % (42.0-52.0); LYMPH # 0.6 10^3/uL (1.5-5.0); LYMPH % 4.7 % (24.0-44.0); MEAN CORPUSCULAR HEMOGLOBIN 32.9 pg (27.0-33.0); MEAN CORPUSCULAR HGB CONC 33.2 g/dl (32.0-36.5); MEAN CORPUSCULAR VOLUME 98.9 fl (80.0-96.0); MONO # 0.7 10^3/uL (0.0-0.8); MONO % 5.8 % (2.0-8.0); NEUTROPHILS # 11.1 10^3/uL (1.5-8.5); NEUTROPHILS % 89.1 % (36.0-66.0); PLATELET COUNT, AUTOMATED 112 10^3/uL (150-450); RED BLOOD COUNT 3.65 10^6/uL (4.30-6.10); WHITE BLOOD COUNT 12.4 10^3/uL (4.0-10.0)
[2024-02-29 06:26] LABS: CALCIUM LEVEL 8.3 MG/DL (8.5-10.1); CREATININE FOR GFR 1.42 MG/DL (0.70-1.30); GLOMERULAR FILTRATION RATE 54.3 (>56); POTASSIUM SERUM 4.1 MMOL/L (3.5-5.1)
[2024-02-29] MEDS: SODIUM CHLORIDE HYPERTONIC 3% 4ML NEB SOL INH SCH (07:30)
[2024-02-29] MEDS ORDERED: TOPI200T7 PO (14:09)
[2024-02-29] MEDS ORDERED: HOME MED LIST COMPLETE! XX SCH (14:10)
[2024-02-29] MEDS: ENOXAPARIN 40MG/0.4ML SYRINGE (J1650 PER 10MG) SC SCH (16:18)
[2024-02-29] MEDS: traZODone 100 MG TAB PO ONE (23:18)
[2024-03-01] VITALS (20 sets, daily range): BP systolic 109–157; BP diastolic 65–79; TEMP 97.5–98.8; O2SAT 90–98
[2024-03-01 07:03] LABS: BASO % 0.2 % (0.0-1.0); EOS % 0.1 % (0.0-3.0); HEMATOCRIT 28.9 % (42.0-52.0); LYMPH # 0.9 10^3/uL (1.5-5.0); LYMPH % 6.9 % (24.0-44.0); MEAN CORPUSCULAR HGB CONC 34.3 g/dl (32.0-36.5); MEAN CORPUSCULAR VOLUME 96.3 fl (80.0-96.0); MONO # 0.8 10^3/uL (0.0-0.8); MONO % 5.7 % (2.0-8.0); NEUTROPHILS # 11.1 10^3/uL (1.5-8.5); NEUTROPHILS % 84.1 % (36.0-66.0); PLATELET COUNT, AUTOMATED 132 10^3/uL (150-450); WHITE BLOOD COUNT 13.3 10^3/uL (4.0-10.0)
[2024-03-01 07:07] LABS: HEMOGLOBIN 9.9 g/dl (13.5-17.5)
[2024-03-01 07:29] LABS: BLOOD UREA NITROGEN 22 MG/DL (9-23); CARBON DIOXIDE LEVEL 22 MMOL/L (20-31); CHLORIDE LEVEL 111 MMOL/L (98-107); CREATININE FOR GFR 1.18 MG/DL (0.70-1.30); GLOMERULAR FILTRATION RATE > 60.0 (>56); GLUCOSE, FASTING 89 MG/DL (60-100); POTASSIUM SERUM 3.6 MMOL/L (3.5-5.1); SODIUM LEVEL 139 MMOL/L (136-145)
[2024-03-01] MEDS ORDERED: LEVALBUTEROL HFA 45MCG/ACT 15GM INHALER INH PRN (10:20)
[2024-03-01] MEDS: LEVALBUTEROL 1.25MG 0.5ML CONCENTRATE NEB INH SCH (13:41)
[2024-03-01] MEDS: TIOTROPIUM INHALER/CAPSULE (SPIRIVA) INH SCH (13:42)
[2024-03-01] MEDS: TOPIRAMATE (TopAMAX) 100 MG TAB PO SCH (17:39)
[2024-03-01] MEDS: traZODone 100 MG TAB PO SCH (20:08)
[2024-03-01] MEDS: busPIRone 10 MG TAB PO SCH (20:08)
[2024-03-01] MEDS: DOXYCYCLINE HYCLATE 100MG TABLET PO SCH (20:08)
[2024-03-01] MEDS: ACETAMINOPHEN TAB 650MG DOSE (2X325MG) PO PRN (20:08)
[2024-03-01] MEDS: DIVALPROEX 500 MG TAB PO SCH (20:08)
[2024-03-02] VITALS (16 sets, daily range): BP systolic 104–134; BP diastolic 58–78; TEMP 97.1–97.8; O2SAT 91–100
[2024-03-02 06:26] LABS: BASO % 0.2 % (0.0-1.0); EOS % 0.3 % (0.0-3.0); HEMATOCRIT 24.5 % (42.0-52.0); HEMOGLOBIN 8.3 g/dl (13.5-17.5); LYMPH # 1.3 10^3/uL (1.5-5.0); LYMPH % 11.8 % (24.0-44.0); MEAN CORPUSCULAR HEMOGLOBIN 32.4 pg (27.0-33.0); MEAN CORPUSCULAR HGB CONC 33.9 g/dl (32.0-36.5); MEAN CORPUSCULAR VOLUME 95.7 fl (80.0-96.0); MONO # 0.9 10^3/uL (0.0-0.8); MONO % 8.3 % (2.0-8.0); NEUTROPHILS # 8.3 10^3/uL (1.5-8.5); NEUTROPHILS % 78.7 % (36.0-66.0); PLATELET COUNT, AUTOMATED 139 10^3/uL (150-450); RED BLOOD COUNT 2.56 10^6/uL (4.30-6.10); WHITE BLOOD COUNT 10.6 10^3/uL (4.0-10.0)
[2024-03-02 06:50] LABS: BLOOD UREA NITROGEN 17 MG/DL (9-23); CALCIUM LEVEL 8.3 MG/DL (8.5-10.1); CARBON DIOXIDE LEVEL 23 MMOL/L (20-31); CHLORIDE LEVEL 113 MMOL/L (98-107); CREATININE FOR GFR 1.18 MG/DL (0.70-1.30); GLOMERULAR FILTRATION RATE > 60.0 (>56); GLUCOSE, FASTING 103 MG/DL (60-100); POTASSIUM SERUM 3.6 MMOL/L (3.5-5.1); SODIUM LEVEL 141 MMOL/L (136-145)
[2024-03-02 07:03] LABS: CPK CREATINE PHOSPHOKINASE 1368 U/L (46-171)
[2024-03-02] MEDS: FUROSEMIDE 40MG/4ML VIAL IV ONE (13:19)
[2024-03-02] MEDS: guaiFENesin ER TABLET 600 MG TAB PO SCH (20:34)
[2024-03-02] MEDS ORDERED: BISACODYL 10MG SUPP PR PRN (22:00)
[2024-03-02] MEDS: MOM 30ML SUSPENSION UDC PO PRN (22:19)
[2024-03-03 03:30] VITALS: BP 130/75; TEMP 97.5; O2SAT 92
[2024-03-03 06:21] LABS: HEMATOCRIT 24.4 % (42.0-52.0); HEMOGLOBIN 8.2 g/dl (13.5-17.5); MEAN CORPUSCULAR HEMOGLOBIN 31.9 pg (27.0-33.0); MEAN CORPUSCULAR HGB CONC 33.6 g/dl (32.0-36.5); MEAN CORPUSCULAR VOLUME 94.9 fl (80.0-96.0); PLATELET COUNT, AUTOMATED 162 10^3/uL (150-450); RED BLOOD COUNT 2.57 10^6/uL (4.30-6.10); WHITE BLOOD COUNT 8.1 10^3/uL (4.0-10.0)
[2024-03-03 06:44] LABS: BLOOD UREA NITROGEN 11 MG/DL (9-23); CARBON DIOXIDE LEVEL 26 MMOL/L (20-31); CHLORIDE LEVEL 108 MMOL/L (98-107); CREATININE FOR GFR 1.19 MG/DL (0.70-1.30); GLOMERULAR FILTRATION RATE > 60.0 (>56); GLUCOSE, FASTING 106 MG/DL (60-100); SODIUM LEVEL 141 MMOL/L (136-145)
[2024-03-03 07:15] LABS: LYMPHOCYTES 31 % (16-44); MONOCYTES 2 % (0-5); NEUTROPHILS 67 % (28-66); PLATELET ESTIMATE NORMAL (NORMAL)
[2024-03-03 07:17] LABS: ANISOCYTOSIS 1+; HYPOCHROMASIA 2+
[2024-03-03] MEDS: MIRALAX *UNIT DOSE* 17GM PACKET PO SCH (09:31)
[2024-03-03] MEDS: IPRATROPIUM 0.5MG/ALBUTEROL 2.5MG INH SOL UD 3ML (DUONEB) NEB ONE (11:24)
[2024-03-03 12:00] VITALS: TEMP 97.9; O2SAT 94
[2024-03-03 12:35] VITALS: BP 102/62
[2024-03-03 16:51] LABS: URINE STREP PNEUMONIAE ANTIGEN NOT DETECTED (NOT DETECT)
[2024-03-03 19:43] VITALS: BP 110/61; TEMP 97.9; O2SAT 94
[2024-03-03] MEDS: POTASSIUM CHLORIDE 10MEQ SR TABLET PO SCH (20:10)
[2024-03-04 04:13] VITALS: BP 105/60; TEMP 97.7; O2SAT 93
[2024-03-04 06:13] LABS: BASO % 0.2 % (0.0-1.0); EOS # 0.1 10^3/uL (0.0-0.5); EOS % 0.6 % (0.0-3.0); HEMATOCRIT 26.2 % (42.0-52.0); LYMPH # 1.7 10^3/uL (1.5-5.0); LYMPH % 17.8 % (24.0-44.0); MEAN CORPUSCULAR HEMOGLOBIN 33.1 pg (27.0-33.0); MEAN CORPUSCULAR HGB CONC 34.4 g/dl (32.0-36.5); MEAN CORPUSCULAR VOLUME 96.3 fl (80.0-96.0); MONO # 1.4 10^3/uL (0.0-0.8); MONO % 14.7 % (2.0-8.0); NEUTROPHILS # 6.3 10^3/uL (1.5-8.5); NEUTROPHILS % 65.7 % (36.0-66.0); PLATELET COUNT, AUTOMATED 226 10^3/uL (150-450); RED BLOOD COUNT 2.72 10^6/uL (4.30-6.10); WHITE BLOOD COUNT 9.6 10^3/uL (4.0-10.0)
[2024-03-04 06:46] LABS: BLOOD UREA NITROGEN 10 MG/DL (9-23); CALCIUM LEVEL 8.4 MG/DL (8.5-10.1); CARBON DIOXIDE LEVEL 25 MMOL/L (20-31); CHLORIDE LEVEL 110 MMOL/L (98-107); CREATININE FOR GFR 1.06 MG/DL (0.70-1.30); GLOMERULAR FILTRATION RATE > 60.0 (>56); GLUCOSE, FASTING 91 MG/DL (60-100); POTASSIUM SERUM 3.7 MMOL/L (3.5-5.1); SODIUM LEVEL 141 MMOL/L (136-145)
[2024-03-04 11:25] LABS: PROCALCITONIN 0.94 ng/ml
[2024-03-04 12:00] VITALS: BP 143/74; TEMP 97.3; O2SAT 98
[2024-03-04 18:14] VITALS: O2SAT 94
[2024-03-04 20:00] VITALS: BP 107/67; TEMP 98.1; O2SAT 91
[2024-03-04] MEDS: CEFDINIR 300 MG CAP (OMNICEF) PO SCH (20:20)
[2024-03-05 04:00] VITALS: BP 112/67; TEMP 97.7; O2SAT 90
[2024-03-05 06:13] LABS: BASO % 0.2 % (0.0-1.0); EOS # 0.1 10^3/uL (0.0-0.5); EOS % 1.2 % (0.0-3.0); HEMATOCRIT 27.5 % (42.0-52.0); HEMOGLOBIN 9.1 g/dl (13.5-17.5); LYMPH # 2.3 10^3/uL (1.5-5.0); LYMPH % 25.8 % (24.0-44.0); MEAN CORPUSCULAR HGB CONC 33.1 g/dl (32.0-36.5); MEAN CORPUSCULAR VOLUME 99.6 fl (80.0-96.0); MONO # 0.9 10^3/uL (0.0-0.8); MONO % 10.6 % (2.0-8.0); NEUTROPHILS # 5.3 10^3/uL (1.5-8.5); NEUTROPHILS % 60.1 % (36.0-66.0); PLATELET COUNT, AUTOMATED 262 10^3/uL (150-450); RED BLOOD COUNT 2.76 10^6/uL (4.30-6.10); WHITE BLOOD COUNT 8.9 10^3/uL (4.0-10.0)
[2024-03-05 07:38] LABS: BLOOD UREA NITROGEN 15 MG/DL (9-23); CALCIUM LEVEL 8.7 MG/DL (8.5-10.1); CARBON DIOXIDE LEVEL 25 MMOL/L (20-31); CHLORIDE LEVEL 109 MMOL/L (98-107); CREATININE FOR GFR 1.08 MG/DL (0.70-1.30); GLOMERULAR FILTRATION RATE > 60.0 (>56); GLUCOSE, FASTING 90 MG/DL (60-100); POTASSIUM SERUM 4.2 MMOL/L (3.5-5.1); SODIUM LEVEL 140 MMOL/L (136-145)
[2024-03-05] MEDS ORDERED: MUCI600T31 PO (11:45)
[2024-03-05] MEDS ORDERED: VENTAER INH (11:45)
[2024-03-05] MEDS ORDERED: DOXY100T PO (11:45)
[2024-03-05] MEDS ORDERED: CEFD300CAP PO (11:45)
[2024-03-05 12:00] VITALS: BP 118/70; TEMP 97.5; O2SAT 94
== END 2024-03-05 14:12 | disposition home or self-care (01) | DRG 871 ==
LOC: M ED 12:12 → M ED INP 18:48 → M PCU 23:29 → M MSPAV 03-02 15:15
PROVIDERS: ADMIT Internal Medicine Nephrology; ATTEND Internal Medicine Nephrology
DX: A41.9 Sepsis, unspecified organism (principal); G93.41 Metabolic encephalopathy; J96.01 Acute respiratory failure with hypoxia; J18.9 Pneumonia, unspecified organism; J44.0 Chronic obstructive pulmonary disease with (acute) lower respiratory infection; E87.3 Alkalosis; M62.82 Rhabdomyolysis; N17.9 Acute kidney failure, unspecified; J45.909 Unspecified asthma, uncomplicated; G40.909 Epilepsy, unspecified, not intractable, without status epilepticus; E78.5 Hyperlipidemia, unspecified; G43.909 Migraine, unspecified, not intractable, without status migrainosus; N18.2 Chronic kidney disease, stage 2 (mild); Z87.820 Personal history of traumatic brain injury; F12.90 Cannabis use, unspecified, uncomplicated; Z98.42 Cataract extraction status, left eye; F32.A Depression, unspecified; F41.9 Anxiety disorder, unspecified; F17.200 Nicotine dependence, unspecified, uncomplicated; E66.9 Obesity, unspecified; F10.10 Alcohol abuse, uncomplicated

== ENCOUNTER 2024-03-12 16:23 | Emergency (ER) | payer MEDICARE, MEDICAID ==
[~2024-03-12] VITALS: Ht 193 cm; Wt 83.2 kg
[~2024-03-12 16:23] MED LIST changes: +CEFD300CAP PO; +DOXY100T PO; +MUCI600T31 PO; +TOPI200T7 PO; +VENTAER INH
[2024-03-13 01:47] LABS: HEMATOCRIT 27.3 % (42.0-52.0); HEMOGLOBIN 8.9 g/dl (13.5-17.5); MEAN CORPUSCULAR HEMOGLOBIN 33.1 pg (27.0-33.0); MEAN CORPUSCULAR HGB CONC 32.6 g/dl (32.0-36.5); MEAN CORPUSCULAR VOLUME 101.5 fl (80.0-96.0); PLATELET COUNT, AUTOMATED 441 10^3/uL (150-450); RED BLOOD COUNT 2.69 10^6/uL (4.30-6.10); WHITE BLOOD COUNT 3.9 10^3/uL (4.0-10.0)
[2024-03-13 02:16] LABS: ATYPICAL LYMPH 4 % (0-5); BASOPHILS 1 % (0-1); EOSINOPHILS 2 % (0-3); LYMPHOCYTES 23 % (16-44); MONOCYTES 5 % (0-5); NEUTROPHILS 65 % (28-66)
[2024-03-13 02:17] LABS: PLATELET CLUMPS SMALL AMT; PLATELET ESTIMATE INCREASED (NORMAL)
[2024-03-13 02:28] LABS: BLOOD UREA NITROGEN 12 MG/DL (9-23); CALCIUM LEVEL 8.9 MG/DL (8.5-10.1); CARBON DIOXIDE LEVEL 30 MMOL/L (20-31); CHLORIDE LEVEL 105 MMOL/L (98-107); CREATININE FOR GFR 1.24 MG/DL (0.70-1.30); GLOMERULAR FILTRATION RATE > 60.0 (>56); GLUCOSE, FASTING 88 MG/DL (60-100); MAGNESIUM LEVEL 2.1 MG/DL (1.8-2.4); POTASSIUM SERUM 4.2 MMOL/L (3.5-5.1); SODIUM LEVEL 136 MMOL/L (136-145)
[2024-03-13] MEDS ORDERED: FURO20TA2 PO (02:35)
[2024-03-13] MEDS ORDERED: POTA10TA67 PO (02:38)
[2024-03-13 03:11] VITALS: BP 127/67; TEMP 97.9; O2SAT 97
== END 2024-03-13 03:14 | disposition home or self-care (01) ==
LOC: M ED 16:23
DX: R22.43 Localized swelling, mass and lump, lower limb, bilateral (principal); F41.9 Anxiety disorder, unspecified; F32.A Depression, unspecified; Z79.899 Other long term (current) drug therapy

== ENCOUNTER 2024-03-24 12:55 | Emergency (ER) | payer MEDICARE, MEDICAID ==
[~2024-03-24 12:55] MED LIST changes: +FURO20TA2 PO; +POTA10TA67 PO
[2024-03-24 15:19] VITALS: BP 105/58; TEMP 96.6; O2SAT 98
== END 2024-03-24 15:23 | disposition home or self-care (01) ==
LOC: M ED 12:55
DX: S40.021A Contusion of right upper arm, initial encounter (principal); W06.XXXA Fall from bed, initial encounter; Y92.009 Unspecified place in unspecified non-institutional (private) residence as the place of occurrence of the external cause; Y93.9 Activity, unspecified; Y99.9 Unspecified external cause status; F17.200 Nicotine dependence, unspecified, uncomplicated; Z79.899 Other long term (current) drug therapy

== ENCOUNTER 2024-04-23 19:46 | Emergency (ER) | payer MEDICARE, MEDICAID ==
[~2024-04-23] VITALS: Ht 190.5 cm; Wt 84.1 kg
[2024-04-23 21:20] LABS: BASO % 0.3 % (0.0-1.0); EOS # 0.1 10^3/uL (0.0-0.5); HEMOGLOBIN 9.6 g/dl (13.5-17.5); LYMPH # 1.8 10^3/uL (1.5-5.0); LYMPH % 17.9 % (24.0-44.0); MEAN CORPUSCULAR HEMOGLOBIN 33.4 pg (27.0-33.0); MEAN CORPUSCULAR HGB CONC 33.1 g/dl (32.0-36.5); MONO # 0.6 10^3/uL (0.0-0.8); MONO % 6.3 % (2.0-8.0); NEUTROPHILS # 7.4 10^3/uL (1.5-8.5); PLATELET COUNT, AUTOMATED 245 10^3/uL (150-450); RED BLOOD COUNT 2.87 10^6/uL (4.30-6.10)
[2024-04-23 21:32] LABS: INR 1.05; PARTIAL THROMBOPLASTIN TIME 25.3 SECONDS (24.8-34.2); PROTHROMBIN TIME 13.4 SECONDS (12.5-14.5)
[2024-04-23 21:55] LABS: ALBUMIN 2.9 G/DL (3.2-5.2); ALKALINE PHOSPHATASE 51 U/L (46-116); ALT/SGPT < 9 U/L (7.0-40); AST/SGOT < 8 U/L (<34); BILIRUBIN,DIRECT 0.2 MG/DL (<0.4); BILIRUBIN,TOTAL 0.4 MG/DL (0.3-1.2); BLOOD UREA NITROGEN 15 MG/DL (9-23); CALCIUM LEVEL 8.4 MG/DL (8.5-10.1); CARBON DIOXIDE LEVEL 26 MMOL/L (20-31); CHLORIDE LEVEL 107 MMOL/L (98-107); CK-MB VALUE MASS < 1.0 NG/ML (<3.6); CPK CREATINE PHOSPHOKINASE 47 U/L (46-171); CREATININE FOR GFR 1.18 MG/DL (0.70-1.30); GLOMERULAR FILTRATION RATE > 60.0 (>56); GLUCOSE, FASTING 93 MG/DL (60-100); MB/CK RELATIVE INDEX 2.12 (< OR =4); POTASSIUM SERUM 4.3 MMOL/L (3.5-5.1); SODIUM LEVEL 136 MMOL/L (136-145); TOTAL PROTEIN 6.6 G/DL (5.7-8.2)
[2024-04-23 21:58] LABS: THYROID STIMULATING HORMONE 1.228 uIU/ML (0.55-4.78)
[2024-04-23 21:59] LABS: FREE T4 0.95 NG/DL (0.89-1.76)
[2024-04-23 22:41] LABS: CK-MB VALUE MASS < 1.0 NG/ML (<3.6)
[2024-04-23 22:42] LABS: CPK CREATINE PHOSPHOKINASE 39 U/L (46-171); MB/CK RELATIVE INDEX 2.56 (< OR =4)
[2024-04-23 22:56] VITALS: BP 126/73; TEMP 96.8; O2SAT 93
== END 2024-04-23 23:10 | disposition home or self-care (01) ==
LOC: M ED 19:46
DX: R22.43 Localized swelling, mass and lump, lower limb, bilateral (principal); R56.9 Unspecified convulsions; Z87.820 Personal history of traumatic brain injury; J45.909 Unspecified asthma, uncomplicated; J44.9 Chronic obstructive pulmonary disease, unspecified; F10.10 Alcohol abuse, uncomplicated; E66.9 Obesity, unspecified; F32.A Depression, unspecified; F41.9 Anxiety disorder, unspecified; F17.200 Nicotine dependence, unspecified, uncomplicated; N18.2 Chronic kidney disease, stage 2 (mild); Z79.899 Other long term (current) drug therapy

== ENCOUNTER 2024-05-19 14:13 | Emergency (ER) | payer MEDICARE, MEDICAID ==
[~2024-05-19] VITALS: Ht 188 cm; Wt 70.5 kg
[2024-05-19 16:16] LABS: BASO % 0.6 % (0.0-1.0); EOS # 0.1 10^3/uL (0.0-0.5); EOS % 1.9 % (0.0-3.0); HEMATOCRIT 32.7 % (42.0-52.0); HEMOGLOBIN 10.6 g/dl (13.5-17.5); LYMPH # 1.5 10^3/uL (1.5-5.0); MEAN CORPUSCULAR HEMOGLOBIN 32.5 pg (27.0-33.0); MEAN CORPUSCULAR HGB CONC 32.4 g/dl (32.0-36.5); MEAN CORPUSCULAR VOLUME 100.3 fl (80.0-96.0); MONO # 0.3 10^3/uL (0.0-0.8); MONO % 6.5 % (2.0-8.0); NEUTROPHILS # 2.8 10^3/uL (1.5-8.5); NEUTROPHILS % 58.8 % (36.0-66.0); PLATELET COUNT, AUTOMATED 228 10^3/uL (150-450); RED BLOOD COUNT 3.26 10^6/uL (4.30-6.10); WHITE BLOOD COUNT 4.8 10^3/uL (4.0-10.0)
[2024-05-19 16:47] LABS: ALBUMIN 2.9 G/DL (3.2-5.2); ALKALINE PHOSPHATASE 54 U/L (46-116); ALT/SGPT < 9 U/L (7.0-40); AST/SGOT 10 U/L (<34); BILIRUBIN,TOTAL 0.2 MG/DL (0.3-1.2); BLOOD UREA NITROGEN 26 MG/DL (9-23); CALCIUM LEVEL 8.7 MG/DL (8.5-10.1); CARBON DIOXIDE LEVEL 28 MMOL/L (20-31); CHLORIDE LEVEL 108 MMOL/L (98-107); CREATININE FOR GFR 1.26 MG/DL (0.70-1.30); GLOMERULAR FILTRATION RATE > 60.0 (>56); GLUCOSE, FASTING 84 MG/DL (60-100); SODIUM LEVEL 140 MMOL/L (136-145); TOTAL PROTEIN 7.3 G/DL (5.7-8.2)
[2024-05-19] MEDS: NS 1,000 ML IV ONE (17:50)
[2024-05-19 19:51] VITALS: BP 126/70; TEMP 98; O2SAT 98
== END 2024-05-19 19:15 | disposition home or self-care (01) ==
LOC: EDSEX 14:13 → EDBD 14:13 → M ED 14:13
DX: E86.0 Dehydration (principal); J44.9 Chronic obstructive pulmonary disease, unspecified; J45.909 Unspecified asthma, uncomplicated; E78.5 Hyperlipidemia, unspecified; N18.9 Chronic kidney disease, unspecified; G40.909 Epilepsy, unspecified, not intractable, without status epilepticus; Z87.820 Personal history of traumatic brain injury; F17.200 Nicotine dependence, unspecified, uncomplicated; Z79.899 Other long term (current) drug therapy

== ENCOUNTER 2024-07-02 13:56 | Emergency (ER) | payer MEDICARE, MEDICAID ==
[~2024-07-02] VITALS: Ht 188 cm; Wt 77.0 kg
[2024-07-02 13:57] VITALS: BP 148/80; TEMP 97.1; O2SAT 97
== END 2024-07-02 16:47 | disposition left against medical advice (07) ==
LOC: M ED 13:56
DX: Z53.21 Procedure and treatment not carried out due to patient leaving prior to being seen by health care provider (principal)

== ENCOUNTER 2024-07-19 07:41 | Emergency (ER) | payer MEDICARE, MEDICAID ==
[~2024-07-19] VITALS: Ht 193 cm; Wt 76.7 kg
[2024-07-19] MEDS ORDERED: [UNRECOGNIZED DRUG - CODE] XX (09:37)
[2024-07-19 10:13] VITALS: BP 130/71; TEMP 97.8; O2SAT 98
== END 2024-07-19 10:14 | disposition home or self-care (01) ==
LOC: EDBD 07:41 → M ED 07:41
DX: J06.9 Acute upper respiratory infection, unspecified (principal); J44.9 Chronic obstructive pulmonary disease, unspecified; G40.909 Epilepsy, unspecified, not intractable, without status epilepticus; E78.5 Hyperlipidemia, unspecified; J45.909 Unspecified asthma, uncomplicated; Z79.52 Long term (current) use of systemic steroids; Z79.2 Long term (current) use of antibiotics; Z79.899 Other long term (current) drug therapy

== ENCOUNTER → 2025-01-07 | Outpatient (CLI) | payer MEDICARE, MEDICAID ==
[~2025-01-07] MED LIST changes: +[UNRECOGNIZED DRUG - CODE] XX
[2025-01-07 13:26] LABS: PSA SCREENING 0.17 NG/ML (< 4.00)
[2025-01-07 13:27] LABS: CALCIUM LEVEL 8.5 MG/DL (8.3-10.6); CREATININE FOR GFR 1.49 MG/DL (0.70-1.30); GLOMERULAR FILTRATION RATE 53.4 (>49); POTASSIUM SERUM 4.8 MMOL/L (3.5-5.1)
== END ==
LOC: M RAD 11:33
PROVIDERS: ATTEND Student in an Organized Health Care Education/Training Program
DX: R32 Unspecified urinary incontinence (principal); M79.642 Pain in left hand; M79.641 Pain in right hand; R20.2 Paresthesia of skin; Z12.5 Encounter for screening for malignant neoplasm of prostate
CPT/HCPCS: 36415; 72040; 73120; 80048; G0103

== ENCOUNTER 2025-04-16 18:39 | Emergency (ER) | payer MEDICARE, MEDICAID ==
[~2025-04-16] VITALS: Ht 190.5 cm; Wt 82.2 kg
[~2025-04-16 18:39] MED LIST changes: +DIVA-41 PO; -DIVA500T94 PO; +TOPI-14 PO; -TOPI200T7 PO
[2025-04-16] MEDS: ACETAMINOPHEN 325 MG TAB PO ONE (21:49)
[2025-04-16] MEDS: ALBUTEROL SULFATE 2.5 MG/0.5 ML INH CONCENTRATE NEB SOLN NEB ONE (21:49)
[2025-04-16 22:10] LABS: BASO # 0.0 10^3/uL (0.0-0.2); BASO % 0.6 % (0.0-1.0); EOS # 0.1 10^3/uL (0.0-0.5); EOS % 1.3 % (0.0-3.0); LYMPH # 1.9 10^3/uL (1.5-5.0); LYMPH % 40.7 % (24.0-44.0); MONO # 0.4 10^3/uL (0.0-0.8); MONO % 9.0 % (2.0-8.0); NEUTROPHILS # 2.3 10^3/uL (1.5-8.5); NEUTROPHILS % 48.2 % (36.0-66.0); PLATELET COUNT, AUTOMATED 213 10^3/uL (150-450)
[2025-04-16 22:35] LABS: ALT/SGPT 10.0 U/L (7.0-40); AST/SGOT 20.0 U/L (<34); CALCIUM LEVEL 9.2 MG/DL (8.3-10.6); CARBON DIOXIDE LEVEL 27.0 MMOL/L (20-31); CHLORIDE LEVEL 101.0 MMOL/L (98-107); CREATININE FOR GFR 1.39 MG/DL (0.70-1.30); GLOMERULAR FILTRATION RATE 58.0 (>49); POTASSIUM SERUM 4.2 MMOL/L (3.5-5.1); SODIUM LEVEL 138.0 MMOL/L (136-145)
[2025-04-17 00:29] VITALS: BP 105/63; TEMP 98.8; O2SAT 98
== END 2025-04-17 00:32 | disposition home or self-care (01) ==
LOC: M ED 18:39
DX: R05.9 Cough, unspecified (principal); N17.9 Acute kidney failure, unspecified; E78.5 Hyperlipidemia, unspecified; J45.909 Unspecified asthma, uncomplicated; J44.9 Chronic obstructive pulmonary disease, unspecified; R56.9 Unspecified convulsions; Z87.820 Personal history of traumatic brain injury; F17.200 Nicotine dependence, unspecified, uncomplicated; F12.10 Cannabis abuse, uncomplicated; Z79.899 Other long term (current) drug therapy

== ENCOUNTER 2025-06-13 17:20 | Emergency (ER) | payer MEDICARE, MEDICAID ==
[~2025-06-13] VITALS: Ht 190.5 cm; Wt 83.2 kg
[2025-06-13 19:08] LABS: BASO # 0.0 10^3/uL (0.0-0.2); BASO % 0.3 % (0.0-1.0); EOS # 0.1 10^3/uL (0.0-0.5); EOS % 0.9 % (0.0-3.0); LYMPH # 1.8 10^3/uL (1.5-5.0); LYMPH % 19.2 % (24.0-44.0); MONO # 0.5 10^3/uL (0.0-0.8); MONO % 5.5 % (2.0-8.0); NEUTROPHILS # 6.9 10^3/uL (1.5-8.5); NEUTROPHILS % 73.9 % (36.0-66.0); PLATELET COUNT, AUTOMATED 273 10^3/uL (150-450)
[2025-06-13 19:41] LABS: THYROXINE (T4) 9.0 UG/DL (4.5-10.9)
[2025-06-13 19:49] LABS: ALT/SGPT 11 U/L (7.0-40); AST/SGOT 34 U/L (<34); CALCIUM LEVEL 9.1 MG/DL (8.3-10.6); CARBON DIOXIDE LEVEL 27 MMOL/L (20-31); CHLORIDE LEVEL 108 MMOL/L (98-107); CREATININE FOR GFR 1.26 MG/DL (0.70-1.30); GLOMERULAR FILTRATION RATE 65.3 (>49); POTASSIUM SERUM 5.1 MMOL/L (3.5-5.1); SODIUM LEVEL 137 MMOL/L (136-145)
[2025-06-13] MEDS ORDERED: AMOX875T2 PO (21:54)
[2025-06-13] MEDS ORDERED: VENTAER INH (21:54)
[2025-06-13 22:00] VITALS: BP 124/81
[2025-06-13] MEDS: AUGMENTIN 875 MG TAB PO ONE (22:03)
[2025-06-13] MEDS: IPRATROPIUM 0.5 MG/ALBUTEROL 2.5 MG INH SOL UD 3 ML NEB ONE (22:06)
[2025-06-13 22:15] VITALS: O2SAT 95
[2025-06-13 22:26] VITALS: TEMP 97
== END 2025-06-13 22:28 | disposition home or self-care (01) ==
LOC: M ED 17:20
DX: J44.1 Chronic obstructive pulmonary disease with (acute) exacerbation (principal); F17.200 Nicotine dependence, unspecified, uncomplicated; Z79.899 Other long term (current) drug therapy

== ENCOUNTER 2025-07-05 13:52 | Emergency (ER) | payer MEDICARE, MEDICAID ==
[~2025-07-05] VITALS: Ht 193 cm; Wt 80.8 kg
[~2025-07-05 13:52] MED LIST changes: +AMOX875T2 PO
[2025-07-05 16:24] LABS: BASO # 0.0 10^3/uL (0.0-0.2); BASO % 0.4 % (0.0-1.0); EOS # 0.1 10^3/uL (0.0-0.5); EOS % 1.0 % (0.0-3.0); LYMPH # 1.4 10^3/uL (1.5-5.0); LYMPH % 28.5 % (24.0-44.0); MONO # 0.4 10^3/uL (0.0-0.8); MONO % 8.7 % (2.0-8.0); NEUTROPHILS # 3.1 10^3/uL (1.5-8.5); NEUTROPHILS % 61.2 % (36.0-66.0); PLATELET COUNT, AUTOMATED 242 10^3/uL (150-450)
[2025-07-05 16:47] LABS: CALCIUM LEVEL 9.1 MG/DL (8.3-10.6); CARBON DIOXIDE LEVEL 31.0 MMOL/L (20-31); CHLORIDE LEVEL 104.0 MMOL/L (98-107); CREATININE FOR GFR 1.68 MG/DL (0.70-1.30); GLOMERULAR FILTRATION RATE 46.0 (>49); POTASSIUM SERUM 4.1 MMOL/L (3.5-5.1); SODIUM LEVEL 141.0 MMOL/L (136-145)
[2025-07-05] MEDS: NS (Normal Saline) 0.9% 1,000 ML IV ONE (17:15)
[2025-07-05] MEDS: IPRATROPIUM 0.5 MG/ALBUTEROL 2.5 MG INH SOL UD 3 ML NEB ONE (17:15)
[2025-07-05] MEDS ORDERED: DOXY-441 PO (18:59)
[2025-07-05 19:15] VITALS: BP 103/58; O2SAT 96
[2025-07-05] MEDS: DOXYCYCLINE HYCLATE 100 MG TABLET PO ONE (19:15)
[2025-07-05 19:29] VITALS: TEMP 97.8
== END 2025-07-05 19:25 | disposition home or self-care (01) ==
LOC: M ED 13:52
DX: J44.1 Chronic obstructive pulmonary disease with (acute) exacerbation (principal); F17.200 Nicotine dependence, unspecified, uncomplicated; Z79.51 Long term (current) use of inhaled steroids; Z79.899 Other long term (current) drug therapy

== ENCOUNTER → 2025-07-22 | Outpatient (REF) | payer MEDICARE, MEDICAID ==
[~2025-07-22] MED LIST changes: +CLAR500T97 PO; +DOXY-441 PO
[2025-07-22 18:42] LABS: CREATININE, URINE 57.9 MG/DL
[2025-07-22 18:43] LABS: MALB URINE SIEMENS < 3.0 MG/L
[2025-07-22 18:46] LABS: IRON (FE) 52 UG/DL (65-175); PERCENT SATURATION 17.4 % (19.7-50.0)
[2025-07-22 18:47] LABS: ALT/SGPT < 9 U/L (7.0-40); AST/SGOT 13 U/L (<34); CALCIUM LEVEL 8.8 MG/DL (8.3-10.6); CARBON DIOXIDE LEVEL 28 MMOL/L (20-31); CHLORIDE LEVEL 108 MMOL/L (98-107); CHOLESTEROL LEVEL 137 MG/DL (<200); CHOLESTEROL RISK RATIO 2.71 (<5); CREATININE FOR GFR 1.32 MG/DL (0.70-1.30); ESTIMATED AVERAGE GLUCOSE 97.0 MG/DL (60-110); GLOMERULAR FILTRATION RATE 61.4 (>49); LDL CHOLESTEROL 69.1 MG/DL (<100); NON-HDL-C 86.5 MG/DL; POTASSIUM SERUM 4.7 MMOL/L (3.5-5.1); SODIUM LEVEL 141 MMOL/L (136-145); TRIGLYCERIDES LEVEL 87 MG/DL (<150)
[2025-07-22 18:48] LABS: VITAMIN B12 LEVEL 502 PG/ML (211-911)
[2025-07-22 18:56] LABS: BASO # 0.0 10^3/uL (0.0-0.2); BASO % 0.8 % (0.0-1.0); EOS # 0.1 10^3/uL (0.0-0.5); EOS % 1.7 % (0.0-3.0); LYMPH # 1.3 10^3/uL (1.5-5.0); LYMPH % 24.2 % (24.0-44.0); MONO # 0.5 10^3/uL (0.0-0.8); MONO % 9.6 % (2.0-8.0); NEUTROPHILS # 3.4 10^3/uL (1.5-8.5); NEUTROPHILS % 63.5 % (36.0-66.0); PLATELET COUNT, AUTOMATED 265 10^3/uL (150-450)
== END ==
LOC: M LAB REF 16:15
PROVIDERS: ATTEND Student in an Organized Health Care Education/Training Program
DX: Z00.00 Encounter for general adult medical examination without abnormal findings (principal); N39.41 Urge incontinence; Z79.899 Other long term (current) drug therapy

== ENCOUNTER 2025-08-06 17:11 | Emergency (ER) | payer MEDICARE, MEDICAID ==
[~2025-08-06] VITALS: Ht 193 cm; Wt 84.6 kg
[~2025-08-06 17:11] MED LIST changes: -CLAR500T97 PO
[2025-08-06 20:02] VITALS: BP 116/66; TEMP 96.8; O2SAT 100
[2025-08-06] MEDS ORDERED: CLAR500T97 PO (20:15)
== END 2025-08-06 20:44 | disposition home or self-care (01) ==
LOC: M ED 17:11
DX: J06.9 Acute upper respiratory infection, unspecified (principal); J44.9 Chronic obstructive pulmonary disease, unspecified; Z87.820 Personal history of traumatic brain injury; F17.200 Nicotine dependence, unspecified, uncomplicated; Z79.899 Other long term (current) drug therapy